=== PATIENT | male | born 1940 | race Caucasian/White ===

== ENCOUNTER 2018-05-01 12:58 | Inpatient (IN) ==
[2018-05-01] MEDS ORDERED: ASPIRIN PO ONE (13:42)
[2018-05-01] MEDS ORDERED: ASPIRIN PR ONE (13:42)
--- NOTE | 2018-05-01 14:03 | EKG Report ---
Test Performed on : 05/01/2018 1:08:04 PM Test Reason : CP Blood Pressure : / mmHG Vent. Rate : 069 BPM Atrial Rate : 069 BPM P-R Int : 220 ms QRS Dur : 154 ms QT Int : 450 ms P-R-T Axes : 264 018 018 degrees QTc Int : 482 ms Unusual P axis, possible ectopic atrial rhythm. Right bundle branch block Abnormal ECG When compared with ECG of 16-APR-2018 07:57, (Unconfirmed) Ectopic atrial rhythm. has replaced Sinus rhythm. Unconfirmed Result
--- NOTE | 2018-05-01 14:16 | Diag Imaging Result Doc PS360 ---
EXAM: CHEST-2 VIEWS 05/01/2018 HISTORY: CP TECHNIQUE: PA and lateral chest COMMENT: There are sternotomy wires. The inspiration is slightly less optimal than on 04/16/2018. There is apparent atelectasis in the left lower lobe. IMPRESSION: Left lower lobe atelectasis versus pneumonia. Electronically signed by Binh Larson 05/01/2018 2:14 PM
[2018-05-01 14:39] LABS: BASO# 0.04 X1000 (0.0-0.2); BASO% 0.6 % (0.0-0.8); EOS# 0.33 X1000 (0.0-0.7); EOS% 4.8 % (0.0-10.0); HEMATOCRIT 38.8 % (42.0-52.0); HEMOGLOBIN 12.1 g/dL (14.0-18.0); LYMPH# 1.61 X1000 (1.2-3.4); LYMPH% 23.5 % (20.5-51.1); MCH 26.9 PG (27-31); MCHC 31.2 g/dL (33-37); MCV 86.4 FL (81-99); MONO% 11.7 % (1.7-9.3); MPV 12.9 FL (7.4-10.4); NEUT# 4.07 X1000 (1.4-6.5); NEUT% 59.4 % (42.2-75.2); PLT 197 X1000 (130-400); RBC 4.49 XMIL (4.7-6.1); RDW 13.4 % (11.5-14.5); WBC 6.85 X1000 (4.8-10.8)
[2018-05-01 14:48] LABS: INR 1.07; PROTIME 14.8 Seconds (11.0-16.0)
[2018-05-01 14:49] LABS: PTT 36.1 Seconds (22.3-41.8)
[2018-05-01 15:29] LABS: ALB/GLOB RATIO 1.2; ALBUMIN 3.9 g/dL (3.5-5.0); CALCIUM 9.2 mg/dL (8.8-10.2); CREATININE 1.4 mg/dL (0.7-1.2); POTASSIUM 4.2 mmol/L (3.5-5.1); TOTAL BILIRUBIN 0.32 mg/dL (0.20-1.00); TOTAL PROTEIN 7.1 g/dL (6.3-8.3)
[2018-05-01 15:50] LABS: CK INDEX 1.7 (0.0-2.5); CK-MB 9.66 ng/mL (0.0-5.0)
[2018-05-01] MEDS ORDERED: NS 1,000 ML IV ONE (16:19)
[2018-05-01] MEDS ORDERED: G.I. COCKTAIL PO ONE (17:35)
[2018-05-01 17:54] LABS: CK INDEX 1.6 (0.0-2.5); CK-MB 9.06 ng/mL (0.0-5.0)
[2018-05-01] MEDS ORDERED: MORPHINE IV ONE (17:56)
[2018-05-01] MEDS ORDERED: NITROGLYCERIN SL PRN (17:57)
[2018-05-01] MEDS ORDERED: TYLENOL PO PRN (18:42)
[2018-05-01 20:11] LABS: CK INDEX 1.6 (0.0-2.5); CK-MB 8.47 ng/mL (0.0-5.0)
[2018-05-01] MEDS: HUMULIN R SUBQ SCH (21:00)
[2018-05-02] MEDS: MORPHINE IV PRN ×2 (00:22→19:13)
[2018-05-02] MEDS: ZOFRAN IV PRN (00:24)
[2018-05-02 03:24] LABS: BASO# 0.04 X1000 (0.0-0.2); BASO% 0.6 % (0.0-0.8); EOS# 0.33 X1000 (0.0-0.7); HEMATOCRIT 36.5 % (42.0-52.0); HEMOGLOBIN 11.4 g/dL (14.0-18.0); IMM GRAN# 0.04 X1000 (0.0-0.04); IMM GRAN% 0.6 % (0.0-0.5); LYMPH# 1.92 X1000 (1.2-3.4); LYMPH% 29.2 % (20.5-51.1); MCH 27.1 PG (27-31); MCHC 31.2 g/dL (33-37); MCV 86.9 FL (81-99); MONO# 0.85 X1000 (0.11-0.59); MONO% 12.9 % (1.7-9.3); MPV 12.3 FL (7.4-10.4); NEUT% 51.7 % (42.2-75.2); PLT 195 X1000 (130-400); RDW 13.3 % (11.5-14.5); WBC 6.58 X1000 (4.8-10.8)
[2018-05-02 03:39] LABS: HEMOGLOBIN A1C 8.2 % (4.8-6.0)
[2018-05-02 03:44] LABS: INR 1.12; PROTIME 15.3 Seconds (11.0-16.0)
[2018-05-02 03:45] LABS: PTT 36.9 Seconds (22.3-41.8)
[2018-05-02 03:49] LABS: ALB/GLOB RATIO 1.1; ALBUMIN 3.4 g/dL (3.5-5.0); CALCIUM 8.7 mg/dL (8.8-10.2); CREATININE 1.2 mg/dL (0.7-1.2); TOTAL BILIRUBIN 0.31 mg/dL (0.20-1.00); TOTAL PROTEIN 6.4 g/dL (6.3-8.3)
[2018-05-02 04:18] LABS: CK INDEX 1.7 (0.0-2.5); CK-MB 7.74 ng/mL (0.0-5.0)
--- NOTE | 2018-05-02 07:25 | HISTORY AND PHYSICAL ---
PRIMARY CARE PROVIDER: Dr. Ricketts. UNIT TRUST MANAGER: Dr. Chun. ORTHOPEDIST: Dr. Murray. CHIEF COMPLAINT: Center chest pressure. HISTORY OF PRESENT ILLNESS: Mr. Arauz is a 77-year-old gentleman who carries a past medical history of coronary artery disease, status post CABG in 1985, and stenting 09/02/2012, and left main had a patent stent, as well as a patent circumflex, MILLS to the LAD artery was patent, on 05/20/2011 he had PTCA with drug-eluting stent to the circumflex artery, hypertension, type 2 diabetes uncontrolled, probable obesity hypoventilation syndrome versus obstructive sleep apnea, COPD with home O2, hyperlipidemia, recently treated for a left foot ulcer by Dr. Murray. He still follows with him. He has wound care with [facility]. He reported sometime today, he started feeling center chest pressure. He did not know what made it worse. He did not know what made it better. However, he is currently pressure-free, and sleeping soundly on the stretcher. He denies fever, chills, cough, palpitations, nausea, vomiting, diarrhea, shortness of breath. Two sets of troponins have been negative. We will place him on the medical floor, make him NPO after midnight, place a monitor for a stress test. Repeat an echocardiogram. Continue to trend his cardiac enzymes. Continue his home supplemental O2. PAST MEDICAL HISTORY: 1. Coronary artery disease, status post CABG and stenting to the circumflex. 2. Hypertension. 3. Obstructive sleep apnea versus hypoventilation syndrome. 4. Diabetes mellitus type 2, uncontrolled. 5. Hyperlipidemia. 6. Left knee bursitis, status post aspiration in February. 7. Diabetic foot ulcer. He has been getting wound care, I believe with [facility]. He had finished antibiotics a couple of months ago, with Dr. Banks. We will consult wound care. 8. COPD, on home oxygen, without exacerbation. PAST SURGICAL HISTORY: 1. CABG. 2. TURP. 3. Drug-eluting stent to the circumflex. 4. Diabetic foot ulcer to the plantar surface of the foot, treated by Dr. Murray. 5. Left knee aspiration, by Dr. Mello. SOCIAL HISTORY: He is a former smoker. No history of illicit drug use, alcohol, or tobacco presently. FAMILY HISTORY: No history of coronary artery disease. ALLERGIES: No known drug allergies. HOME MEDICATIONS: Have not been reconciled. REVIEW OF SYSTEMS: A 14-point review of systems complete and negative, except for those mentioned in the HPI. PHYSICAL EXAMINATION: VITAL SIGNS: Temperature is 98 degrees, heart rate 66, respirations 22, blood pressure 159/78, oxygen is 98% on 2.5 L nasal cannula. GENERAL: Mr. Arauz is a 77-year-old male, who is sleeping soundly on the stretcher. Wakens easily with voice and gentle tactile stimulus. He is in no acute distress. HEENT: Atraumatic, normocephalic. PERRL. NECK: Supple. Trachea midline. CV: S1, S2 appreciated. No JVD. No murmurs, gallops, or rubs. No lower extremity edema. However, he does have on medical grade ARCENIO hose. PULMONARY: Bilateral breath sounds. Clear to auscultation. No rales, rhonchi, or wheezes. GI: Soft, nontender, and nondistended. Positive bowel sounds in 4 quadrants. EXTREMITIES: The patient does have medical grade ARCENIO hose to both bilateral lower extremities. Did not assess any lower extremity edema. He does have a plantar wound to his left lower extremity that is wrapped. NEUROLOGIC: No focal deficits noted. DIAGNOSTIC DATA: Chest x-ray shows left lower lobe atelectasis versus pneumonia. EKG shows unusual P axis, possible ectopic atrial rhythm, right bundle branch block, at 69 beats per minute. LABORATORY DATA: White count 6, hemoglobin and hematocrit 12 and 38, platelet count 197,000. Sodium 144, potassium 4.2, BUN 20, creatinine 1.4. Blood glucose is 82. CK 569, CK-I 1.6, CK-MB 9.06, troponin 2 sets 0.26 and 0.027. ProBNP 178. ASSESSMENT AND PLAN: 1. Chest pain in a patient with known coronary disease, status post coronary artery bypass grafting and stenting to his circumflex. Will admit him to the medical telemetry floor, place him on a healthy heart diet, make him NPO after midnight. Recheck an echocardiogram. Continue to trend his cardiac enzymes. Continue morphine for any chest pain. Continue aspirin. Consult Dr. Brothers with Cardiology. 2. Hypertension. Will continue home medications when reconciled. 3. Sleep apnea. 4. Uncontrolled diabetes mellitus type 2. Will continue on sliding scale and pattern blood sugars. 5. Hyperlipidemia. Continue statin. 6. Left plantar diabetic foot ulcer. We will continue with wound care. 7. Probable obesity hypoventilation syndrome versus obstructive sleep apnea. The patient should be wearing a CPAP at night. 8. Chronic obstructive pulmonary disease, on home oxygen, without exacerbation. Continue his home regimen. 9. Further recommendations to follow physician evaluation, laboratory and diagnostic data. Dictated by HERNANDEZ Juarez for Alek Dennis MD cc: Alek Dennis MD
[2018-05-02] MEDS: ASPIRIN EC PO SCH ×2 (09:04→19:12)
--- NOTE | 2018-05-02 09:30 | Diag Imaging Result Doc PS360 ---
EXAM: CHEST-2 VIEWS 05/02/2018 HISTORY: rule out pna TECHNIQUE: AP and lateral chest COMMENT: The inspiration is suboptimal. There has been no appreciable change otherwise since the previous study of 05/01/2018. IMPRESSION: Stable chest. Electronically signed by Binh Larson 05/02/2018 9:28 AM
[2018-05-02] MEDS: HUMULIN R SUBQ SCH ×4 (10:38→21:49)
--- NOTE | 2018-05-02 11:08 | CARDIOLOGY CONSULTATION ---
DATE: 05/02/2018 HISTORY OF PRESENT ILLNESS: Ms. Vasquez is a 77-year-old gentleman known to our service, history of coronary artery disease, COPD on home O2, diabetes presented to the emergency room with shortness of breath, which worsened recently. He had some chest heaviness prior to admission as well. He does not complain of any palpitations. He has had some dizzy spells. There is lightheadedness as well. There is no orthopnea paroxysmal nocturnal dyspnea. Exercise capacity significantly limited. A 14-point review of systems was done. REVIEW OF SYSTEM: GI: There is no history of nausea, vomiting, diarrhea. There is no history of hematemesis or melena. Central nervous system: No focal weakness to suggest a CVA or TIA. PAST MEDICAL HISTORY: 1. Coronary artery disease, status post coronary artery bypass grafting with MILLS to LAD in 1985. Last cardiac catheterization 09/02/2012: EF 55% to 60%, patent stent LAD, proximal 80%, circumflex stent patent. RCA irregularities. MILLS to LAD was patent, at that time. Her last echocardiogram 07/21/2017, ejection fraction of 60% to 65%. 2. COPD, hypertension, hyperlipidemia, diabetes, hiatal hernia, hypothyroidism, altered mental status, vertigo, obstructive sleep apnea. PAST SURGICAL HISTORY: TURP and left knee bursitis aspiration. HOME MEDICATIONS: Aspirin, Plavix, isosorbide mononitrate, metoprolol 50, lisinopril 40, levothyroxine 25, tamsulosin, Neurontin, furosemide 80 mg once a day, Fenofibrate 145, Celexa 40, budesonide, albuterol, Spiriva, Advair Diskus, insulin as directed. ALLERGIES: He is not known to be allergic to any medication. EXAMINATION: Vital signs: On examination, blood pressure was 160/62. Cardiovascular: Normal jugular venous pressure. There no thyromegaly. No carotid bruit. First and second heart sounds were heard. Respiratory: Distant breath sounds. Few scattered wheeze. Abdomen: Soft, nontender. There was no guarding or rigidity. Bowel sounds were heard. Central nervous system: Alert and oriented, was moving all 4 extremities. Extremities: Examination of extremities revealed he has got a diabetic foot ulcer on the left side. LABORATORY EXAMINATION: Sodium 143, potassium 4.0, BUN 18, creatinine 1.2. The patient's INR was 1.1. Troponin 0.027, 0.026, 0.026. ASSESSMENT AND PLAN: 1. Mr. Noé Vasquez is a 77-year-old gentleman with history of coronary artery disease, status post coronary artery bypass grafting, hypertension, diabetes, hyperlipidemia, and chronic obstructive pulmonary disease, presents with shortness of breath, some dizziness, and chest discomfort. From a cardiac standpoint, we will set him up to undergo a Cardiolite stress test to assess for and rule out ischemia. He has been stable from a cardiac standpoint. 2. He has significant chronic obstructive pulmonary disease. His shortness of breath has worsened. I will also get a pulmonary consultation. 3. Hypertension. Continue with his current medications. 4. Chronic obstructive pulmonary disease. Continue with his home medications. 5. I have not made any other changes to his medications. Thank for the consult. We will follow hospital course. cc: Toby Chun MD
[2018-05-02 12:15] LABS: CK INDEX 1.9 (0.0-2.5); CK-MB 9.03 ng/mL (0.0-5.0)
[2018-05-02] MEDS ORDERED: LEXISCAN ONE (12:30)
--- NOTE | 2018-05-02 12:47 | EKG Report ---
Test Performed on : 05/02/2018 12:43:34 PM Test Reason : dyspnea Blood Pressure : / mmHG Vent. Rate : 057 BPM Atrial Rate : 057 BPM P-R Int : 236 ms QRS Dur : 144 ms QT Int : 464 ms P-R-T Axes : 000 013 026 degrees QTc Int : 451 ms Sinus bradycardia. with sinus arrhythmia. with 1st degree AV block. Right bundle branch block Abnormal ECG When compared with ECG of 02-MAY-2018 12:43, (Unconfirmed) Sinus rhythm. has replaced Ectopic atrial rhythm. Confirmed by Julian AGUILAR, Malvin Burks ([id number]) on 05/04/2018 10:36:05 AM
--- NOTE | 2018-05-02 15:03 | Diag Imaging Result Document ---
PROCEDURE NAME: MYOCARDIAL PERF SCAN, STR/REST - 05/02/2018 LEXISCAN SESTAMIBI INTERPRETATION: SUMMARY: The patient was administered 15.8 mCi of technetium-99m sestamibi after which resting cardiac images were obtained. The patient was subsequently administered Lexiscan 0.4 mg intravenously after which the heart rate went from 58 beats per minute to 91 beats per minute. The blood pressure went from 144/69 to 163/72. With Lexiscan, the patient denied chest discomfort. Following the administration of Lexiscan, the patient was administered 45.9 mCi of technetium-99m sestamibi, after which gated stress cardiac images were obtained. Baseline ECG demonstrated sinus rhythm and left bundle branch block. First-degree AV block also demonstrated. With Lexiscan, there were no diagnostic ST-segment changes. SPECT images were reconstructed in the short, horizontal and vertical long axis. Review of these images demonstrated a small area of moderately diminished activity in the inferior apex of the left ventricle on stress images which improves on resting images. Gated images demonstrate a calculated left ventricular ejection fraction of 64% with symmetrical wall motion/thickening. CONCLUSIONS: 1. Adequate response to Lexiscan. 2. Clinically negative for chest pain. 3. Electrocardiographically there were no diagnostic ST-segment changes on ECG following the administration of Lexiscan. 4. Lexiscan sestamibi images demonstrate small area of moderate reversibility in the inferoapical region of the left ventricle. Normal left ventricular systolic function demonstrated. Clinical correlation recommended. cc: MD Gina Kaur CRNP
[2018-05-02] MEDS: DUONEB (A & A) INH SCH ×3 (16:00→23:35)
[2018-05-02] MEDS: NORVASC PO SCH (19:11)
[2018-05-02] MEDS: SOLU-MEDROL IV SCH (19:11)
[2018-05-02] MEDS: PLAVIX PO SCH (19:11)
[2018-05-02] MEDS: ASPIRIN PO SCH (19:12)
[2018-05-02] MEDS: IMDUR PO SCH (19:12)
[2018-05-02] MEDS: TRICOR PO SCH ×2 (19:12→20:50)
[2018-05-02] MEDS: SANTYL OINT TOP SCH (19:12)
[2018-05-02] MEDS: LOVENOX SUBQ SCH (19:14)
[2018-05-02] MEDS: TOPROL XL PO SCH (21:49)
--- NOTE | 2018-05-02 22:21 | PROGRESS NOTE ---
DATE: 05/02/2018 SUBJECTIVE: Patient resting in bed. PHYSICAL EXAMINATION: Vital signs: Temperature 98.3 degrees, pulse 78, blood pressure 163/62, oxygen saturation 98%, respiratory rate is 19. HEENT: He is atraumatic, normocephalic. Cardiovascular: S1, S2. Respiratory system: Evidence of good air entry bilaterally. Abdomen: Soft, nontender. No masses felt. Extremities: No evidence of edema. Central nervous system: No obvious focal deficits noted. LABORATORIES: WBC 6.58, hematocrit is 36.5, with a platelet count of 195,000. Sodium 143, potassium 4.0, chloride is 106, bicarbonate is 30, BUN is 18, creatinine is 1.2. IMAGING STUDIES: X-ray of the chest: No acute findings noted. ASSESSMENT AND PLAN: 1. Chest pain/history of coronary artery disease. Continue aspirin, Plavix, beta enio as well as sublingual nitroglycerin. We will check a fasting lipid panel. Cardiology is following. 2. Chronic obstructive pulmonary disease. Maintain patient on nebulized bronchodilators as well as steroids. 3. Hypertension. Continue current antihypertensive regimen. 4. Diabetes mellitus. Continue sliding scale insulin as well as blood sugar monitoring. 5. Obstructive sleep apnea. The patient can use his CPAP machine at night. 6. Deep vein thrombosis prophylaxis. Lovenox. 7. Gastrointestinal prophylaxis. Proton pump inhibitor. cc: Alek Dennis MD
--- NOTE | 2018-05-03 00:08 | ECHO REPORT ---
ORDER DATE: 05/02/2018 MEASUREMENTS: Left ventricular end diastolic diameter 5.4, end systolic diameter 4.3, septal thickness 1.2, posterior wall thickness 1.2, aortic root 3.7, left atrium 5.3. SUMMARY: 1. Technically difficult study due to limited acoustic window quality. 2. Intravenous echo contrast agent Definity utilized to enhance endocardial definition. 3. Aortic valve is trileaflet and opens normally on 2-dimensional images. Peak gradient across the aortic valve is less than 10 mmHg. Mitral annular calcification is demonstrated. There is mild mitral regurgitation. Tricuspid and pulmonic valves are without evidence of structural abnormality with mild tricuspid regurgitation and mild pulmonic insufficiency. The estimated systolic PA pressure by Doppler is 35 mmHg. The aortic root is normal in size. 4. Normal left ventricular dimensions suggested on 2-dimensional images. Estimated left ventricular ejection fraction approximately 55%. No regional wall motion abnormalities evident. The left atrium is moderately enlarged. The right atrium and right ventricle are grossly normal in size with grossly preserved right ventricular systolic function. 5. No pericardial effusion. 6. Appearance of inferior vena cava suggests mildly elevated central venous pressure. CONCLUSIONS: 1. Technically difficult study. 2. Mitral annular calcification with mild mitral regurgitation. 3. Mild tricuspid regurgitation with estimated systolic pulmonary artery pressure 35 mmHg. 4. Estimated left ventricular ejection fraction approximately 55%. 5. Moderate left atrial enlargement. 6. Mild elevation in central venous pressure is suggested. cc: MD Gina Kaur CRNP
[2018-05-03] MEDS: SOLU-MEDROL IV SCH ×2 (01:34→08:23)
[2018-05-03] MEDS: DUONEB (A & A) INH SCH ×3 (03:00→11:09)
[2018-05-03 05:15] LABS: ALLEN TEST YES; BLOOD TYPE ARTERIAL; HCO3-(ACT) 25.7 mmoll (20.0-26.0); METHB 0.3 % (0.0-1.5); O2(CT) 16.3 mL/dL (15.0-23.0); PO2(98.6) 93 mmHg (60-100); SAMPLE BLOOD; SAO2 96.8 % (95.0-100.0); pH(98.6) 7.34 (7.35-7.45)
[2018-05-03 05:17] LABS: MODALITY CANNULA; PCO2(98.6) 51 mmHg (35-45)
--- NOTE | 2018-05-03 06:00 | CONSULTATION ---
DATE OF CONSULTATION: 05/02/2018 REQUESTING PHYSICIAN: MEGHNA Otto REASON FOR CONSULTATION: Dyspnea and COPD. HISTORY OF PRESENT ILLNESS: This is a 77-year-old male with a medical history of atypical chest pain, coronary artery disease, diastolic congestive heart failure , hypertension, COPD, asthma, gastroesophageal reflux disease, morbid obesity with obesity hypoventilation syndrome versus obstructive sleep apnea, diabetes, hyperlipidemia, diabetic foot ulcer, chronic back and lower extremity pain, and osteoarthritis. The patient presented to the ER yesterday morning with a central chest pressure. He has been admitted to the medical floor for further evaluation and management. At the time of my examination, he still reports chest pressure, SOB and left upper and lower abdominal pain. He states he has been having abdominal pain for a long time. He reports his chest pain or chest pressure is worsened by situational stress from the family as his argues a lot with him. He also reports he has wheezing and PND, but not cough, nausea, vomiting, diarrhea, constipation, bloody stools, pedal edema or palpitations. PAST MEDICAL HISTORY AND SURGICAL HISTORY: 1. Atypical chest pain. 2. Coronary artery disease status post coronary artery bypass grafting with MILLS to the LAD in 1985. On 05/30/2011, he had a PTCA with drug-eluting stent to the circumflex arterial. 3. Diastolic congestive heart failure. Last echocardiogram on 07/21/2017 revealed ejection fraction of 60 to 65 percent. 4. Hypertension. 5. COPD on home oxygen for about 2 years. The patient reports he originally had home oxygen only at bedtime, but right now he is using it all of the time. 6. Asthma. 7. Gastroesophageal reflux disease. 8. Morbid obesity with obesity hypoventilation syndrome versus obstructive sleep apnea. Currently, BMI is 37.8. Follow up with the sleep clinic. He used home CPAP , but has not been titrated for 3 to 4 years. 9. Diabetes mellitus type 2, uncontrolled and insulin dependent. 10. Hyperlipidemia. 11. Left knee bursitis status post aspiration in February of 2018 followed by orthopedic doctor Dr. Murray. 12. Diabetic foot ulcer. Wound care with Santyl followed by Dr. Banks. 13. Dementia. 14. Chronic kidney disease. 15. Chronic back and lower extremity pain status post back surgery. 16. BPH status post transurethral resection of the prostate several years ago in [place]. 17. Osteoarthritis of his knee status post right knee total arthroplasty. 18. Cholecystectomy. SOCIAL HISTORY: Patient used to smoke 3 packs per day, but quit smoking for more than 20 years. He denies alcohol or illicit drug use. FAMILY HISTORY: Positive for congestive heart failure and cerebrovascular disease. ALLERGIES: NKDA REVIEW OF SYSTEMS: A 10 point review of systems was conducted and the pertinent is listed in the HPI. Otherwise noncontributory. PHYSICAL EXAMINATION: Vital Signs: Temperature 98.3, blood pressure 163/62, pulse 78, respiratory rate 19, and oxygen saturation 98% on nasal cannula at 5 mL. General: Morbidly obese, alert and responsive. The patient is sitting by the bedside in no acute distress at this time. HEENT: Atraumatic. Trachea midline. Mucosa pink and moist. Respiratory: Diminished breathing sounds bilaterally with left side worse than the right side. Otherwise clear to auscultation. Cardiovascular: Regular rate and rhythm without murmur noted. Gastrointestinal: The patient complains of tenderness on the left upper quadrant and left lower quadrant. He has normoactive bowel sounds in all 4 quadrants. Abdomen is distended but soft. Extremities: He has diabetic foot ulcer on LLE, which is dressed with dry and clean bandage. Left lower extremity has pedal edema 1+. No clubbing. No cyanosis. Neurologic: Alert and oriented x3. He is able to follow commands. Speech is fluent. DIAGNOSTIC DATA: Chest x-ray revealed stable chest base with sub optimal inspiration. Myocardial perfusion scan stress test showed adequate response to Lexiscan. Clinically negative for chest pain. Electrocardiographically, there were no diagnostic ST elevation changes on EEG or ECG following the administration of Lexiscan. The Lexiscan sestamibi image demonstrated a small area of moderate reversibility in the inferoapical region of the left ventricle. Normal left ventricle systolic function demonstrated. LABORATORY DATA: White blood cells 6.58, hemoglobin 11.4, hematocrit 36.5, and platelet count 195,000. Sodium 143, potassium 4.0, chloride 106, carbon dioxide 30, BUN 18, creatinine 1.2, glucose 107. CK 447, CK-MB 7.74. ProBNP 256. ASSESSMENT AND PLAN: This is a 77-year-old male with medical history of atypical chest pain, coronary artery disease, diastolic congestive heart failure, hypertension , COPD, asthma, gastroesophageal reflux disease, morbid obesity with obesity hypoventilation syndrome versus obstructive sleep apnea, uncontrolled diabetes, hyperlipidemia, dementia, chronic kidney disease, chronic back and lower extremity pain, benign prostatic hyperplasia, and osteoarthritis. He has been admitted to the medical floor with atypical chest pain. 1. Atypical chest pain. The patient is now on telemetry with healthy heart diet. Cardiac enzymes negative, stress test negative for acute change. Dr. Chun on board. 2. Dyspnea. Continue supplemental oxygen as needed. ABG and chest x-ray if indicated. 3. COPD. No exacerbation. Will start bronchodilators if needed. 4. Obesity hypoventilation syndrome versus obstructive sleep apnea. BiPAP at bedtime and as needed. 5. Continue GI and DVT prophylaxis. Thank you for the courtesy of this consult. Dictated by HERNANDEZ River for Sara Tobin MD cc: HERNANDEZ River MD [facility]
[2018-05-03] MEDS: HUMULIN R SUBQ SCH ×2 (06:02→12:37)
[2018-05-03] MEDS ORDERED: PRILOSEC PO SCH (07:00)
--- NOTE | 2018-05-03 07:31 | Diag Imaging Result Doc PS360 ---
CHEST-1 VIEW - 05/03/2018 INDICATION: copd COMPARISON: 05/02/2018 FINDINGS: Stable cardiomegaly and pulmonary vascular congestion. No infiltrates or edema. IMPRESSION: No change from prior. Electronically signed by Librado Nuñez 05/03/2018 7:29 AM
[2018-05-03 07:46] LABS: BASO# 0.01 X1000 (0.0-0.2); BASO% 0.1 % (0.0-0.8); HEMOGLOBIN 12.2 g/dL (14.0-18.0); LYMPH# 0.45 X1000 (1.2-3.4); LYMPH% 4.9 % (20.5-51.1); MCH 27.2 PG (27-31); MCHC 31.3 g/dL (33-37); MCV 86.9 FL (81-99); MONO% 1.1 % (1.7-9.3); MPV 12.4 FL (7.4-10.4); NEUT# 8.57 X1000 (1.4-6.5); NEUT% 93.9 % (42.2-75.2); PLT 203 X1000 (130-400); RBC 4.49 XMIL (4.7-6.1); RDW 13.2 % (11.5-14.5); WBC 9.13 X1000 (4.8-10.8)
[2018-05-03 08:23] LABS: AGAP 10; ALBUMIN 3.6 g/dL (3.5-5.0); ALKALINE PHOSPHATASE 62 U/L (32-122); BUN 21 mg/dL (8-22); CALCIUM 8.9 mg/dL (8.8-10.2); CHLORIDE 99 mmol/L (98-107); CHOLESTEROL 110 mg/dL (0-200); COSMO 285; CREATININE 1.4 mg/dL (0.7-1.2); ESTIMATED GFR 49; GLUCOSE 312 mg/dL (70-104); GOT 15 U/L (10-34); GPT 8 U/L (10-44); HDL 29 mg/dL (35-55); LDL 64 mg/dL; SODIUM 135 mmol/L (136-145); TCO2 26 mmol/L (25-35); TOTAL BILIRUBIN 0.41 mg/dL (0.20-1.00); TOTAL PROTEIN 7.3 g/dL (6.3-8.3); TRIGLYCERIDES 84 mg/dL (39-160); VLDL 17 mg/dL
[2018-05-03] MEDS: PLAVIX PO SCH (08:23)
[2018-05-03] MEDS: ASPIRIN EC PO SCH (08:23)
[2018-05-03] MEDS: ASPIRIN PO SCH (08:23)
[2018-05-03] MEDS: IMDUR PO SCH (08:23)
[2018-05-03] MEDS: LOVENOX SUBQ SCH (08:23)
[2018-05-03] MEDS: NORVASC PO SCH (08:23)
[2018-05-03] MEDS: TOPROL XL PO SCH (08:23)
[2018-05-03 08:24] LABS: POTASSIUM 5.5 mmol/L (3.5-5.1)
[2018-05-03 08:32] VITALS: BP 143/65
[2018-05-03 08:32] LABS: BANDS 1 % (0-1); LYMPHS 4 % (21-51); MONO 2 % (1-9); SEGS 93 % (42-75)
[2018-05-03] MEDS: ZOFRAN IV PRN (10:13)
[2018-05-03] MEDS: SANTYL OINT TOP SCH (14:17)
--- NOTE | 2018-05-04 09:18 | DISCHARGE SUMMARY ---
ADMISSION DATE: 05/01/2018 DISCHARGE DATE: 05/03/2018 PRINCIPAL DIAGNOSIS: Atypical chest pain. SECONDARY DIAGNOSES: 1. Coronary artery disease status post coronary artery bypass graft, as well as stenting to the circumflex. 2. Hypertension. 3. Obstructive sleep apnea. 4. Type 2 diabetes mellitus. 5. Hyperlipidemia. 6. Chronic obstructive pulmonary disease on home oxygen. 7. Diabetic foot ulcer. 8. Left knee bursitis. DISCHARGE MEDICATIONS: Discharge medications Include the followin. Lasix 80 mg p.o. daily. 2. Fenofibrate 145 g p.o. at bedtime. 3. Stool softeners Slim-Lax tablets, 2 tablets at bedtime. 4. Pravastatin 40 mg p.o. at bedtime. 5. Plavix 75 mg p.o. daily. 6. Metoprolol 50 mg p.o. twice a day. 7. Imdur 60 mg p.o. daily. 8. Flomax 0.4 mg at bedtime. 9. Celexa 40 mg p.o. daily. 10. Gabapentin 300 mg p.o. daily. 11. Levothyroxine 25 mcg p.o. once a day. 12. Amlodipine 10 mg p.o. daily. 13. Humulin 70/30 60 mg subcutaneous in the evenings. 14. Humulin 70/30 18 units subcutaneous in the mornings. 15. Oxybutynin 10 mg p.o. twice a day. 16. Pantoprazole 1 daily. 17. Santyl ointment 1 application topical daily. CONSULTATIONS DONE DURING THIS HOSPITAL STAY: 1. Dr. Toby Chun, Cardiology. 2. Dr. Sara Tobin, Pulmonology. PROCEDURES DONE DURING THIS HOSPITAL STAY: Myocardial perfusion scan; this was done on 05/02/2017. HOSPITAL COURSE: Mr. Arauz is a 77-year-old male, who has an extensive cardiac history. He has had coronary artery disease status post CABG in 1995. Also, stenting done in 04/04/2018 . The left main had a patent stent, as well as a patent circumflex. MILLS to LAD was patent on 05/20/2011. He had PTCA with a drug-eluting stent to the circumflex heart. He does have left foot ulcer and was admitted to the hospital because of chest pain. Was seen by the cardiology team had cardiac stress test done. Showed adequate system; maybe images demonstrate small area of moderate reversibility in the inferior apical region of the left ventricle. The patient seemed to have done fairly well. He is stable. He wants to be discharged home. DISCHARGE PHYSICAL EXAMINATION: Vital Signs: During my evaluation today, his vital signs are as follows: Temperature 98.7 degrees, pulse 79, respiratory 17 blood pressure is 143/60, oxygen saturation is 100%. HEENT: Atraumatic, normocephalic. Cardiovascular system: S1, S2. Respiratory system: Has evidence of good air entry bilaterally. Abdomen: Soft. Nontender. No masses felt. Central nervous system: No obvious focal deficits noted. PLAN: Patient can be discharged home today. He will need to follow up with primary care physician, Pulmonology as well as Cardiology in the outpatient. cc: Alek Dennis MD
== END 2018-05-03 14:32 | disposition home health service (06) | DRG 313 ==
LOC: SUPCPDRO → ED 12:58 → EDIPHOLD 18:56 → 3N 22:58 → EDIPHOLD 22:59 → 3N 23:49
PROVIDERS: ATTEND Internal Medicine
CPT/HCPCS: 71010; 71020; 71045; 71046; 78452; 80053; 80061; 82550; 82553; 82805; 82948; 83036; 83721; 83735; 83880; 84484; 85025; 85610; 85730; 93005; 93010; 93017; 93306; 94640; 94760; 94761; 96360; 99285; A9270; A9500; C8929; J1650; J2270; J2405; J2785; J2920; J7030; Q9957; XXXXX

== ENCOUNTER 2019-01-03 11:56 | Inpatient (IN) ==
[2019-01-03] MEDS ORDERED: MAXIPIME 1 GM in NS 50 ML IV ONE (12:30)
[2019-01-03] MEDS ORDERED: VANCOMYCIN 1 GM/NS 1 GM/250 ML IVPB IV ONE (12:30)
[2019-01-03 12:43] LABS: BASO# 0.02 X1000 (0.0-0.2); BASO% 0.3 % (0.0-0.8); EOS# 0.23 X1000 (0.0-0.7); EOS% 3.1 % (0.0-10.0); HEMATOCRIT 37.6 % (42.0-52.0); HEMOGLOBIN 11.7 g/dL (14.0-18.0); LYMPH# 0.83 X1000 (1.2-3.4); LYMPH% 11.3 % (20.5-51.1); MCH 27.7 PG (27-31); MCHC 31.1 g/dL (33-37); MCV 88.9 FL (81-99); MONO# 0.68 X1000 (0.11-0.59); MONO% 9.3 % (1.7-9.3); MPV 12.6 FL (7.4-10.4); NEUT# 5.58 X1000 (1.4-6.5); PLT 207 X1000 (130-400); RBC 4.23 XMIL (4.7-6.1); RDW 13.8 % (11.5-14.5); WBC 7.34 X1000 (4.8-10.8)
--- NOTE | 2019-01-03 12:57 | Diag Imaging Result Doc PS360 ---
EXAM: FOOT COMPLETE LEFT 01/03/2019 HISTORY: DM foot ulcer TECHNIQUE: Left foot three views COMMENT: There is erosion of the lateral cortex of the head of the proximal phalanx and the lateral portion of the middle phalanx of the fifth toe. This was not the case on 02/08/2018. There is no evidence of fracture or dislocation. IMPRESSION: Probable osteomyelitis in the fifth proximal and middle phalanges. Electronically signed by Binh Larson 01/03/2019 12:55 PM
[2019-01-03 13:00] LABS: ALBUMIN 3.8 g/dL (3.5-5.0); CALCIUM 8.7 mg/dL (8.8-10.2); CREATININE 1.6 mg/dL (0.7-1.2); POTASSIUM 4.1 mmol/L (3.5-5.1); TOTAL BILIRUBIN 0.39 mg/dL (0.20-1.00); TOTAL PROTEIN 7.5 g/dL (6.3-8.3)
[2019-01-03] MEDS ORDERED: TYLENOL PO PRN (14:37)
[2019-01-03] MEDS ORDERED: ZOFRAN IV PRN (14:37)
[2019-01-03] MEDS ORDERED: VANCOMYCIN IV PER PHARMACY MISC SCH (14:45)
[2019-01-03] MEDS ORDERED: VANCOMYCIN 2,000 MG in NS 500 ML IV ONE (16:00)
[2019-01-03] MEDS ORDERED: D50W SYRINGE IV PRN (16:48)
--- NOTE | 2019-01-03 17:15 | HISTORY AND PHYSICAL ---
PRIMARY CARE PHYSICIAN: Nilesh Ricketts MD ORTHOPEDIC DOCTOR: Jayro Murray MD CHIEF COMPLAINT: Left foot cellulitis. HISTORY OF PRESENT ILLNESS: Mr. Arauz is a 78-year-old male who presents to the ER today and states he went to see Dr. Murray on Sunday of this week and was given an oral antibiotic for his left foot cellulitis to the left 5th metatarsal. The patient states that Dr. Murray, informed him that if his foot wound did not improve to notify him. The patient states that his foot wound has began to become more erythemic and has also started to drain more purulent drainage. The patient notified Dr. Murray today that this wound was not getting any better. Dr. Murray notified him at that time to come to the ER for IV antibiotics and hospital admission. The patient states that he has had a wound to the plantar surface of his foot for greater than 2 years. When assessing the wounds the patient is noted to have an open wound to the plantar surface of the left foot below the left great toe. This wound is open and draining sero- sanguinous drainage. He states that he has had this wound for a long time. He states that he puts a dry dressing over this wound. The patient also has another wound noted to the posterior surface of the 5th metatarsal on the left foot. This wound is noted to be very erythemic. It has some purulent drainage draining from it. On the anterior surface of the toe, it appears to be yellow. There is also a malodorous odor coming from the wound. When initially going into the room, the patient had some very constricting ARCENIO hose on. I removed the ARCENIO hose from the leg and the foot. The left foot is very edematous more so than the right foot. There is also noted a very superficial wound to the top of the right foot. The patient had a Band-Aid over this wound and to the right great toe there is a black scab noted. Patient states he has been seeing Dr. Murray. He has been treating his left foot. [facility] and [facility] apparently sent him to see Dr. Murray. The patient is not complaining of any other symptoms. However, he does state that this morning at home his blood sugar was 44. He was able to get his blood sugar to come up by eating. His blood sugar now on labs, is 203. Foot x-ray of the left foot shows probable osteomyelitis in the 5th proximal and middle phalanges. PAST MEDICAL HISTORY: Diabetes, coronary artery disease, hypertension, sleep apnea, hyperlipidemia, left knee bursitis, diabetic foot ulcers, COPD. PAST SURGICAL HISTORY: CABG in 1985, right knee replacement, TURP, drug alluding stent to the circumflex. SOCIAL HISTORY: Denies any smoking, alcohol or illicit drug use. FAMILY HISTORY: Significant for coronary artery disease. ALLERGIES: No known drug allergies. HOME MEDICATIONS: Home medication have not been reconciled. REVIEW OF SYSTEMS: A 12 point review of systems has been obtained and all are negative except for the stated above in the HPI. LABORATORY AND DIAGNOSTICS: White blood cell count 7.34, red blood cell count 4.23, hemoglobin 11.7, hematocrit 37.6, platelet count 207,000. Sodium 137, potassium 4.1, chloride 98, carbon dioxide 27, anion gap 12, BUN 38, creatinine is 1.6, estimated GFR is 42, glucose is 203, calcium is 8.7, total bilirubin is 0.39, AST is 19, ALT is 8. Foot x-ray shows probable osteomyelitis in the 5th proximal and middle phalanges. PHYSICAL EXAMINATION: VITAL SIGNS: Temperature 99.3, heart rate 63, respiratory rate 18, blood pressure is 104/78, O2 saturations 97% on room air. Weight is 280 pounds. Height is 6 feet. GENERAL: This is a 78-year-old, somewhat obese male who is sitting up on the side of the ER stretcher. He is well nourished, well developed. He is in no acute distress at present time. HEENT: Atraumatic, normocephalic. Pupils are equal, round, reactive to light. Mucous membranes are dry. NECK: Supple. No lymphadenopathy. Trachea is midline. No JVD. No thyromegaly. CARDIOVASCULAR: Regular rate and rhythm. No murmurs, gallops, or rubs appreciated. RESPIRATORY: Lung sounds are clear with equal chest excursion. Respirations are nonlabored. No accessory muscle usage. GASTROINTESTINAL: Abdomen large and around. It is soft and nontender. Bowel sounds are present x4. NEUROLOGIC: Cranial nerves 2-2 through 12 intact. The patient is awake, alert, oriented, able to follow all commands appropriately. MUSCULOSKELETAL: Full distal strength noted. No abnormalities of gait. No deformities. EXTREMITIES: No clubbing, no cyanosis. There is edema noted to the left lower extremity. DP and PT pulses are present and palpable. SKIN: Warm, it is very dry and flaky. There is multiple foot ulcers noted to the left lower extremities as described above in the HPI. There is no diaphoresis noted. ASSESSMENT AND PLAN: 1. Osteomyelitis. I have admitted this patient to the medical floor. I have consulted Infectious Disease. I have consulted Orthopedics to see this patient. He sees Dr. Murray on a regular basis. I have placed him on IV antibiotics for his foot infections. I have also placed him on diabetic diet. 2. Diabetes mellitus type 2. I have ordered him a sliding scale. I have also placed him on fingersticks before meals and at bedtime. Once his home med list is reconciled, I will restart him home on his home insulin doses. 3. Coronary artery disease. I will restart all his home medications once they are reconciled in the computer. 4. Hypertension. I will restart his home hypertension medications once they are reconciled in the computer. 5. Chronic obstructive pulmonary disease. I will order him some breathing treatments. He is not short of breath at this time. 6. Gastrointestinal prophylaxis. I have ordered him Prilosec. 7. Deep venous thrombosis prophylaxis. I placed him on Lovenox daily. I have admitted this patient to the medical floor. I have ordered labs for in the morning. I have consulted Dr. Banks for Infectious Disease. I have consulted Dr. Silverio for orthopedic. I placed him on vancomycin and cefepime for antibiotics. I have also started him on Lovenox and Prilosec for GI. All other further recommendations pending hospital course and lab data. Dictated by HERNANDEZ Underwood for Nancie Burks MD cc: MD Jayro Bowen MD Leroy F. Harris, MD Michael C. Donham, MD I performed a face to face encounter on the patient. I reviewed all labs and imaging on the patient. I agree with the H&P as dictated. [facility]
[2019-01-03] MEDS: HUMULIN R SUBQ SCH ×2 (17:54→21:00)
[2019-01-03] MEDS: ZYVOX 600 MG/D5W 600 MG/300 ML IVPB IV SCH (18:01)
[2019-01-03] MEDS: MAXIPIME 1 GM in NS 50 ML IV SCH (20:46)
[2019-01-03] MEDS: LOVENOX SUBQ SCH (20:46)
[2019-01-04] MEDS: ZYVOX 600 MG/D5W 600 MG/300 ML IVPB IV SCH ×2 (06:06→17:04)
[2019-01-04] MEDS ORDERED: PERICOLACE PO PRN (06:41)
[2019-01-04] MEDS: HUMULIN R SUBQ SCH ×4 (06:46→20:54)
[2019-01-04 07:18] LABS: BASO# 0.01 X1000 (0.0-0.2); BASO% 0.1 % (0.0-0.8); EOS# 0.25 X1000 (0.0-0.7); EOS% 3.5 % (0.0-10.0); HEMATOCRIT 35.8 % (42.0-52.0); LYMPH# 1.01 X1000 (1.2-3.4); LYMPH% 14.3 % (20.5-51.1); MCH 26.8 PG (27-31); MCHC 30.7 g/dL (33-37); MCV 87.1 FL (81-99); MONO# 0.92 X1000 (0.11-0.59); MPV 12.3 FL (7.4-10.4); NEUT# 4.88 X1000 (1.4-6.5); NEUT% 69.1 % (42.2-75.2); PLT 219 X1000 (130-400); RBC 4.11 XMIL (4.7-6.1); RDW 13.5 % (11.5-14.5); WBC 7.07 X1000 (4.8-10.8)
[2019-01-04] MEDS: PRILOSEC PO SCH (07:30)
[2019-01-04 07:35] LABS: CALCIUM 8.6 mg/dL (8.8-10.2); CREATININE 1.5 mg/dL (0.7-1.2); MAGNESIUM 2.1 mg/dL (1.5-2.7); POTASSIUM 3.8 mmol/L (3.5-5.1)
[2019-01-04] MEDS: DUONEB (A & A) INH PRN (07:47)
[2019-01-04 07:49] LABS: HEMOGLOBIN A1C 9.3 % (4.8-6.0)
[2019-01-04] MEDS ORDERED: INSULIN PEN NEEDLES ONE (08:07)
[2019-01-04] MEDS ORDERED: BUSPAR PO SCH (09:00)
[2019-01-04] MEDS ORDERED: CELEXA PO SCH (09:00)
[2019-01-04] MEDS: IMDUR PO SCH (09:51)
[2019-01-04] MEDS: MAXIPIME 1 GM in NS 50 ML IV SCH ×2 (09:51→20:10)
[2019-01-04] MEDS: LOPRESSOR PO SCH ×2 (09:51→20:09)
[2019-01-04] MEDS: LASIX PO SCH (09:52)
[2019-01-04] MEDS: DITROPAN PO SCH ×2 (09:52→20:09)
[2019-01-04] MEDS: LYRICA PO SCH ×2 (09:57→20:22)
[2019-01-04] MEDS: HUMULIN 70/30 SUBQ SCH ×2 (10:03→21:00)
--- NOTE | 2019-01-04 15:00 | ORTHOPAEDICS CONSULTATION ---
DATE: 01/04/2019 CONSULT FROM: Dr. Burks. PAST MEDICAL HISTORY: 1. Diabetes. 2. Coronary artery disease. 3. Hypertension. 4. Sleep apnea. 5. Hyperlipidemia. 6. Diabetic foot ulcer. 7. COPD. PAST SURGICAL HISTORY: 1. Coronary artery bypass grafting. 2. Right total knee arthroplasty. 3. TURP procedure. 4. Percutaneous cardiac stent placement. MEDICATIONS: See chart. ALLERGIES: No known drug allergies. SOCIAL HISTORY: Patient denies any tobacco, alcohol, drug use. He lives in [place]. FAMILY HISTORY: Noncontributory. REVIEW OF SYSTEMS: Negative other history present illness. CHIEF COMPLAINT: Left foot ulcer. HISTORY OF PRESENT ILLNESS: Mr. Arauz is a 78-year-old gentleman who has been seen and followed by Dr. Murray for left foot ulcers and cellulitis. He was last seen earlier this week with concerns of left foot cellulitis 5th metatarsal with a wound. He was placed on oral antibiotics at that time. He states the oral antibiotics did not seem to be helping so he called and Dr. Murray sent him to ER for evaluation and IV antibiotics. He was thus admitted, orthopedic surgery consulted. The patient states his foot seems to be looking a little better since he started IV antibiotics. He has been dealing with these ulcers chronically for the last couple years. The ulcer on the lateral aspect of his 5th toe is more recent however. He denies any nausea, vomiting, fever, chills. PHYSICAL EXAM: General: Mr. Arauz is a 78-year-old male appears nourished, well developed, no acute distress. Is awake, alert, oriented x3. Very pleasant, cooperative during examination. White count 7, hemoglobin 11, hematocrit 36, platelets 219,000. HEENT: Normocephalic, atraumatic. Respiratory: Nonlabored breathing . Cardiovascular: Regular rate and rhythm. Extremities: Examination left lower extremity shows a soupy appearing ulcer on the lateral aspect of the left 5th toe. There is mild subcutaneous air and purulence expressed from this. He also has a quarter-sized plantar ulceration over the plantar surface of his 1st MTP joint. This is not seen to probe to bone. He has desquamation globally across foot. He has some erythema around his forefoot however does not track proximally into midfoot area. No other areas of palpable fluctuance or abscess. IMAGING: Three views of the left foot were reviewed demonstrating some lateral cortical erosion of the proximal and middle phalanx of the 5th toe were not present on prior x-ray about 10 months ago. This is concerning for osteomyelitis. ASSESSMENT: A 78-year-old male with left foot 5th toe probable osteomyelitis. PLAN: 1. Long discussion was held with patient regarding diagnosis and treatment options. His cellulitis infection was worsening on oral antibiotics so thus presented for IV medications. He is currently on cefepime and linezolid per Infectious Disease recommendations. Appreciate their recs. Recommend continuing antibiotics and observing clinically for now. Will see how patient does over the next 24 to 48 hours and determine whether or not he is improving. If he is not improving and continues to have drainage from this 5th toe ulcer may consider amputation. 2. Patient can keep the wound dressed with Mepilex type dressing which is currently present. 3. Lovenox DVT prophylaxis. 4. Wound care is consulted. 5. Will discuss patient with Dr. Murray tomorrow to for more definitive plan.
[2019-01-04] MEDS ORDERED: VANCOMYCIN 1,750 MG in NS 250 ML IV SCH (16:00)
--- NOTE | 2019-01-04 18:14 | PROGRESS NOTE ---
DATE: 01/04/2019 SUBJECTIVE: The patient is resting comfortably. He has no complaints at this time. OBJECTIVE: Vital Signs: Temperature 98.5 degrees, blood pressure 137/85, heart rate 50, respirations 16, O2 saturation is 94% on 2 L nasal cannula. Urine output 1.9 L. General: This is a chronically ill-appearing, elderly male, sitting at the edge of the bed in no acute distress. Heart: S1, S2 normal. Regular rate and rhythm. Lungs: Equal air entry bilaterally. No wheezing. No rales. No rhonchi. Abdomen: Positive bowel sounds. Soft, nontender, nondistended. Extremities: The patient has cellulitis involving the left foot. LABORATORY DATA: Reviewed. ASSESSMENT AND PLAN: 1. Left 5th toe osteomyelitis with cellulitis. Continue with IV antibiotic therapy. We will consult with ID for further antibiotic recommendations. The foot x-ray shows possible osteomyelitis involving the 5th proximal and middle phalanges on the left foot. 2. Chronic kidney disease stage 3. Stable. 3. Morbid obesity. Aware. 4. Diabetes mellitus type 2, uncontrolled. Continue with long-acting insulin and sliding-scale insulin. 5. Hypertension. Controlled. Continue on the current antihypertensive medications. 6. Hypothyroidism. Continue on Synthroid. 7. Deep vein thrombosis prophylaxis. Continue on Lovenox. cc: Nancie Burks MD MTDKenzie
[2019-01-04] MEDS: FLOMAX PO SCH (20:09)
[2019-01-04] MEDS: PRAVACHOL PO SCH (20:09)
[2019-01-04] MEDS: TRICOR PO SCH (20:09)
[2019-01-04] MEDS: LOVENOX SUBQ SCH (20:09)
[2019-01-05] MEDS: ZYVOX 600 MG/D5W 600 MG/300 ML IVPB IV SCH (05:27)
[2019-01-05] MEDS: SYNTHROID PO SCH (05:27)
[2019-01-05] MEDS: HUMULIN R SUBQ SCH ×4 (06:40→17:29)
[2019-01-05] MEDS: PRILOSEC PO SCH (06:40)
[2019-01-05 06:54] LABS: HEMATOCRIT 35.1 % (42.0-52.0); HEMOGLOBIN 10.9 g/dL (14.0-18.0); MCH 27.4 PG (27-31); MCHC 31.1 g/dL (33-37); MCV 88.2 FL (81-99); RBC 3.98 XMIL (4.7-6.1); RDW 13.4 % (11.5-14.5); WBC 7.76 X1000 (4.8-10.8)
[2019-01-05 07:22] LABS: CALCIUM 8.8 mg/dL (8.8-10.2); CREATININE 1.5 mg/dL (0.7-1.2); POTASSIUM 4.7 mmol/L (3.5-5.1)
[2019-01-05] MEDS: DUONEB (A & A) INH PRN ×2 (07:50→15:35)
[2019-01-05] MEDS: MAXIPIME 1 GM in NS 50 ML IV SCH (08:14)
[2019-01-05] MEDS: DITROPAN PO SCH (08:15)
[2019-01-05] MEDS: IMDUR PO SCH (08:15)
[2019-01-05] MEDS: LOPRESSOR PO SCH (08:15)
[2019-01-05] MEDS: LYRICA PO SCH (08:15)
[2019-01-05] MEDS: LASIX PO SCH (08:15)
[2019-01-05] MEDS: HUMULIN 70/30 SUBQ SCH (08:18)
[2019-01-05] MEDS: MORPHINE IV PRN ×2 (08:19→14:45)
--- NOTE | 2019-01-05 10:40 | ORTHOPAEDICS PROGRESS NOTE ---
DATE: 01/05/2019 SUBJECTIVE: No acute events overnight. The patient denies much pain in his left foot. He is tolerating a diet. He has no other complaints. OBJECTIVE: Afebrile. Vital signs are stable. Examination of the left foot again reveals a quarter-size plantar ulcer at his first MTP joint. There is no erythema or drainage from this. It does not appear to probe deep. He also has a small ulcer on the lateral aspect of his fifth digit. He has some serous drainage from this. No purulence expressed. Erythema is stable from yesterday. It is not progressing proximally. There is 2+ pitting edema in the left lower extremity up to the knee. Brisk capillary refill x5. LABORATORY DATA: White count stable at 7.7, hematocrit is 35. BUN 28, creatinine 1.5. ASSESSMENT: A 78-year-old male with left fifth toe osteomyelitis with ulceration. PLAN: 1. The patient can continue weightbearing as tolerated on his left lower extremity. Continue Mepilex dressings over his ulcers. 2. Continue cefepime and linezolid per Infectious Disease recommendations. Appreciate ID recommendations. 3. We discussed definitive treatment with the patient. He is currently not septic from this toe. Will go ahead and make him n.p.o. at midnight tonight, and discuss the patient with Dr. Murray, who will make a definitive decision tomorrow. I think he will likely end up needing an amputation of this toe given the osteolytic changes on x-ray. However, he is not sick from this right now, so I think it is reasonable to continue IV antibiotics at this time.
--- NOTE | 2019-01-05 11:48 | PROGRESS NOTE ---
DATE: 01/05/2019 SUBJECTIVE: The patient is sitting at the edge of the bed, getting ready to eat breakfast. He states that he kept waking up last night. OBJECTIVE: Vital Signs: Temperature 98.5 degrees, blood pressure 125/50, heart rate 58, respirations 17, O2 saturation 97% on 2 L nasal cannula. General: This is a morbidly obese male, sitting at the edge of the bed in no acute distress. Heart: S1, S2 normal. Regular rate and rhythm. Lungs: Equal air entry bilaterally. No wheezing. No rales. No rhonchi. Abdomen: Positive bowel sounds. Soft, nontender, nondistended. Extremities: The right foot is erythematous. The patient has an ulceration on the left fifth toe, as well as surrounding erythema. Neurologic: The patient is alert and oriented x4. LABORATORY DATA: White blood cell count 7.7, hemoglobin 10, hematocrit 35, platelets 220,000. Sodium 137, potassium 4.7, chloride 98, CO2 of 29, BUN 28, creatinine 1.5, glucose 213, calcium 8.8. ASSESSMENT AND PLAN: 1. Left fifth toe osteomyelitis with cellulitis. Continue with antibiotic therapy. Orthopedic Surgery is following. Will also consult with Infectious Disease. 2. Chronic kidney disease stage 3. Stable. 3. Morbid obesity. Aware. 4. Chronic hypoxemic respiratory failure. Stable. 5. Uncontrolled diabetes mellitus type 2. Continue on long-acting insulin plus sliding scale insulin. 6. Hypothyroidism. Continue on Synthroid. 7. Hypertension. Controlled. 8. Deep vein thrombosis prophylaxis. Continue on Lovenox. cc: Nancie Burks MD MTDD
[2019-01-05] MEDS ORDERED: MAXIPIME 2 GM in NS 50 ML IV SCH (13:28)
[2019-01-05] MEDS: MAXIPIME 2 GM in NS 100 ML IV SCH (14:37)
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
[2019-01-05] MEDS: ZYVOX PO SCH (17:29)
[2019-01-06] MEDS: HUMULIN 70/30 SUBQ SCH ×2 (00:51→18:34)
[2019-01-06] MEDS: PRAVACHOL PO SCH ×2 (00:53→23:10)
[2019-01-06] MEDS: HUMULIN R SUBQ SCH ×5 (00:53→23:10)
[2019-01-06] MEDS: TRICOR PO SCH ×2 (00:53→23:09)
[2019-01-06] MEDS: DITROPAN PO SCH ×3 (00:54→23:09)
[2019-01-06] MEDS: LOPRESSOR PO SCH ×3 (00:54→23:09)
[2019-01-06] MEDS: FLOMAX PO SCH ×2 (00:54→23:09)
[2019-01-06] MEDS: LOVENOX SUBQ SCH ×2 (01:00→23:10)
[2019-01-06] MEDS: LYRICA PO SCH ×3 (01:00→23:09)
[2019-01-06] MEDS: MAXIPIME 2 GM in NS 100 ML IV SCH ×3 (02:19→18:20)
[2019-01-06 06:41] LABS: HEMATOCRIT 35.4 % (42.0-52.0); MCH 26.8 PG (27-31); MCHC 31.1 g/dL (33-37); MCV 86.3 FL (81-99); RBC 4.1 XMIL (4.7-6.1); RDW 13.2 % (11.5-14.5); WBC 7.62 X1000 (4.8-10.8)
[2019-01-06] MEDS: SYNTHROID PO SCH (06:50)
[2019-01-06] MEDS: PRILOSEC PO SCH (06:50)
[2019-01-06] MEDS ORDERED: INSULIN PEN NEEDLES ONE (07:22)
[2019-01-06 07:31] LABS: CREATININE 1.8 mg/dL (0.7-1.2); POTASSIUM 4.2 mmol/L (3.5-5.1)
[2019-01-06] MEDS: IMDUR PO SCH (08:59)
[2019-01-06] MEDS: ZYVOX PO SCH (08:59)
[2019-01-06] MEDS: LASIX PO SCH (11:28)
--- NOTE | 2019-01-06 15:19 | Diag Imaging Result Doc PS360 ---
3 PHASE BONE SCAN - 01/06/2019 INDICATION: Left foot osteomyelitis TECHNIQUE: Three phase bone scan of the feet. 28.7 mCi of MDP was administered. COMPARISON: Left foot x-rays 01/03/2019 FINDINGS: There is intense hyperperfusion of the medial left forefoot. There is also increased activity on the blood pool phase images all throughout the left forefoot. However on the delayed phase images, uptake is normal. No abnormal bony uptake. IMPRESSION: Hyperperfusion of the superficial soft tissues of the left forefoot compatible with cellulitis. No evidence of osteomyelitis. Electronically signed by Librado Nuñez 01/06/2019 3:16 PM
--- NOTE | 2019-01-06 16:59 | INFECTIOUS DISEASE PROGRESS NO ---
DATE: 01/06/2019 HISTORY OF PRESENT ILLNESS: Patient has left leg cellulitis involving the area starting between the knee and ankle and extending to the foot. The patient's left little toe on x-ray appeared to have osteomyelitis, however, a 3 phase bone scan today of the left foot shows there is no osteomyelitis in any of the foot. MEDICATIONS: The patient is on a combination of cefepime and Zyvox. PHYSICAL EXAMINATION: Vital Signs: Temperature is 98.6 degrees, pulse 54, respirations 19, blood pressure is 149/60. General: This is a morbidly obese, elderly male. He is in no acute distress. He is sleeping currently. HEENT: No drainage noted from the nose or ears. Cardiovascular: Heart rate is regular. Lungs: There were distant breath sounds but I did not hear any rales or rhonchi . Cardiovascular: Heart rate is irregular. Abdomen: Soft and not tender. Extremities: There is erythema in the left leg as mentioned above. I removed the dressing from the patient's foot. The left little toe is erythematous, swollen, and it has some seropurulent drainage coming from it. There also is an odor from the toe. LAB AND X-RAY: As mentioned above, the x-ray showed that there was osteomyelitis in the left fifth toe. The bone scan showed there was no osteomyelitis in any of the foot. The left foot is growing a gram-negative kell. ASSESSMENT AND PLAN: For now, I am going to continue cefepime IV and stop Zyvox pending the final results of culture from the patient's foot. COMORBIDITIES: Morbid obesity, diabetes mellitus, chronic obstructive pulmonary disease, benign prostatic hypertrophy. The patient did smoke cigarettes but he stopped 20 years ago. cc: Alen Banks MD
--- NOTE | 2019-01-06 17:15 | PROGRESS NOTE ---
DATE: 01/06/2019 SUBJECTIVE: The patient is resting comfortably in bed. He has no complaints. OBJECTIVE: Vital Signs: Temperature 97 degrees, blood pressure 147/66, heart rate 60, respirations 20, O2 saturation 97% on 2 L nasal cannula. General: This is a overweight male, lying in bed in no acute distress. Heart: S1, S2 normal. Regular rate and rhythm. Lungs: Clear to auscultation bilaterally. Abdomen: Positive bowel sounds. Soft, obese, nontender, nondistended. Extremities: The patient has an ulceration on the left 5th toe with surrounding erythema. The patient also has swelling involving the leg. Neurologic: The patient is alert and oriented x4. LABORATORY DATA: White blood cell count 7.6, hemoglobin 11, hematocrit 35, platelets 238,000. Sodium 143, potassium 4.2, chloride 103, CO2 of 28, BUN 29, creatinine 1.8. ASSESSMENT AND PLAN: 1. Left 5th toe osteomyelitis with cellulitis. Continue with antibiotic therapy. The patient is scheduled for a bone scan today. Orthopedic Surgery and Infectious Disease are following. 2. Chronic kidney disease stage 3. The patient's creatinine is slightly elevated. We will hold the Lasix at this time. Continue to monitor closely. 3. Morbid obesity. Aware. 4. Chronic hypoxemic respiratory failure. Stable. Continue with supplemental oxygen. 5. Diabetes mellitus, type 2. Continue on long-acting insulin and sliding scale insulin. 6. Hypertension. Controlled. 7. Hypothyroidism. Continue on Synthroid. 8. Deep vein thrombosis prophylaxis. Continue on Lovenox. cc: Nancie Burks MD MTDD
[2019-01-07] MEDS: MAXIPIME 2 GM in NS 100 ML IV SCH (03:47)
[2019-01-07] MEDS: SYNTHROID PO SCH (06:09)
[2019-01-07] MEDS: PRILOSEC PO SCH (06:09)
[2019-01-07 06:33] LABS: BASO# 0.06 X1000 (0.0-0.2); BASO% 0.9 % (0.0-0.8); EOS# 0.38 X1000 (0.0-0.7); EOS% 5.7 % (0.0-10.0); HEMATOCRIT 34.2 % (42.0-52.0); HEMOGLOBIN 10.6 g/dL (14.0-18.0); LYMPH# 1.32 X1000 (1.2-3.4); MCH 27.1 PG (27-31); MCV 87.5 FL (81-99); MONO# 0.98 X1000 (0.11-0.59); MONO% 14.8 % (1.7-9.3); MPV 12.1 FL (7.4-10.4); NEUT# 3.87 X1000 (1.4-6.5); NEUT% 58.6 % (42.2-75.2); PLT 228 X1000 (130-400); RBC 3.91 XMIL (4.7-6.1); RDW 13.3 % (11.5-14.5); WBC 6.61 X1000 (4.8-10.8)
[2019-01-07 06:48] LABS: CALCIUM 9.3 mg/dL (8.8-10.2); CREATININE 1.6 mg/dL (0.7-1.2); POTASSIUM 4.4 mmol/L (3.5-5.1)
[2019-01-07] MEDS: HUMULIN R SUBQ SCH ×4 (06:49→23:10)
[2019-01-07] MEDS: DITROPAN PO SCH ×2 (08:26→21:53)
[2019-01-07] MEDS: LYRICA PO SCH ×2 (08:26→21:53)
[2019-01-07] MEDS: IMDUR PO SCH (08:26)
[2019-01-07] MEDS: LOPRESSOR PO SCH ×2 (08:26→21:53)
[2019-01-07] MEDS: HUMULIN 70/30 SUBQ SCH ×2 (08:29→17:52)
--- NOTE | 2019-01-07 08:38 | ORTHOPAEDICS PROGRESS NOTE ---
DATE: 01/07/2019 SUBJECTIVE: Mr. Arauz is well known to my service. I have been treating him for a long time. Unfortunately this left foot has just not healed over the past year and then he started getting a new ulcer over the 5th toe and has gotten worse, so he came to the hospital and was admitted and is on IV antibiotics. OBJECTIVE: Left lower extremity exam: He does have that wound over the small toenail. It is draining a little bit and there is some erythema around that area. He still has that plantar wound underneath that first MTP joint which still looks about the same. It is just a nonhealing diabetic foot ulcer. ASSESSMENT: 1. Left diabetic foot ulcer. 2. Left 5th toe osteomyelitis. PLAN: I discussed with Mr. Arauz about everything going on. His wound cultures are growing gram-negative rods. We do not have any exact bacteriuria yet identified. I discussed with him also about the possibility of amputation of the toe versus even a gljsk-ovc-pyil amputation. Before we committed to an amputation I do want Vascular to see him to better evaluate his blood flow. If he does not have great blood flow at all to the foot, we more than likely will need to proceed with a [id number] amputation. I did discuss that with him. After we get some more information from a vascular standpoint, we will be able to make a better decision about the level of the amputation that we will have to do. We will continue to follow. cc: Jayro Murray MD
--- NOTE | 2019-01-07 09:29 | PROGRESS NOTE ---
DATE: 01/07/2019 SUBJECTIVE: Mr. Arauz was sitting up at the side of the bed, a bit frustrated. Understands we need to do some more studies on his feet. He remains afebrile. OBJECTIVE: Temperature 98.5 degrees, pulse 54, respirations 16, blood pressure 154/83. Pupils are equal and round. Lungs are clear in all lung quiros. Cardiovascular Examination: Regular rhythm and rate without murmur or S3. Abdomen is soft. Skin is warm and dry. Urine output is 3100 mL. Blood sugar 186, 79, and 80. ASSESSMENT AND PLAN: 1. Left fifth toe osteomyelitis and cellulitis. Continue antibiotic coverage. The patient is scheduled for a bone scan. Orthopedic surgery and infectious disease are following. 2. Chronic kidney disease stage 3. Patient's creatinine is slightly elevated. Holding his Lasix at this time. 3. Morbid obesity. Aware. 4. Chronic hypoxemic respiratory failure. No breathing issues. Continue supplemental oxygen. 5. Diabetes mellitus type 2. 6. Hypertension. 7. Hypothyroidism. 8. He is on deep venous thrombosis prophylaxis using Lovenox. REVIEW OF ORDERS: He is on Tricor 150 mg at bedtime, Pravachol 40 mg at bedtime, Flomax 0.4 mg at bedtime, Lovenox 30 mg subcutaneous daily. He is on insulin Humulin 70/30 with 60 units and 80 units, isosorbide mononitrate 60 mg daily, Synthroid 25 mcg daily, cefepime 2 g IV q.12, Lopressor 50 mg b.i.d., Lyrica 75 mg b.i.d., Ditropan 10 mg b.i.d., sennoside docusate 2 tablets at bedtime p.r.n. cc: Joselito Castañeda MD
[2019-01-07] MEDS ORDERED: ROCEPHIN 2 GM in NS 50 ML IV SCH (11:00)
--- NOTE | 2019-01-07 11:38 | INFECTIOUS DISEASE PROGRESS NO ---
DATE: 01/07/2019 PRESENT ILLNESS: The patient has a Proteus cellulitis of the left foot. The x-ray does suggest that osteomyelitis is present. However, a 3 phase bone scan shows that there is no osteomyelitis in the foot. MEDICATIONS: The patient is receiving cefepime. PHYSICAL EXAMINATION: Vital Signs: Temperature is 98.5 degrees, pulse 54, respirations 16, blood pressure is 154/83. General: This is an obese, elderly male. He is in no acute distress. Head/eyes/ears/nose/throat: He can hear my spoken words and see near objects. He has dentures in place. Neck: No pain with movement. Lungs: Clear to auscultation. Cardiovascular: Heart rate is irregular. Abdomen: Soft and not tender. Extremities: The left leg has a plantar ulcer present. The left leg also is more swollen than the right leg. The patient's left little toe has a lateral ulcer present with some seropurulent drainage. The leg is as mentioned above, swollen. It is also erythematous and there is some scaling of the skin. The right leg is less swollen, it too has some erythema and scaling of the skin. LAB AND X-RAY STUDIES: There is no new radiographic study. The culture taken from the patient's left foot grew Proteus sensitive to go all the antibiotics tested. The creatinine is 1.6. GFR is 42. CBC shows a white count of 6610, hemoglobin 10.6, and platelet count 228,000. No new radiographic study. ASSESSMENT AND PLAN: The patient has left leg cellulitis due to Proteus. My plan is to discontinue cefepime and put the patient on Rocephin 2 g IV daily. While the patient is in the hospital I am going to continue with Rocephin. When he goes home I will send him home on an oral antibiotic such as amoxicillin or Levaquin. COMORBIDITIES: The patient is morbidly obese. He also has diabetes mellitus, chronic obstructive pulmonary disease, benign prostatic hypertrophy. The patient smoked many years ago, but has stopped smoking for the past 20 years. cc: Alen Banks MD
[2019-01-07] MEDS: PRAVACHOL PO SCH (21:53)
[2019-01-07] MEDS: FLOMAX PO SCH (21:53)
[2019-01-07] MEDS: LOVENOX SUBQ SCH (21:53)
[2019-01-07] MEDS: TRICOR PO SCH (21:53)
[2019-01-08] MEDS: PRILOSEC PO SCH (06:13)
[2019-01-08] MEDS: SYNTHROID PO SCH (06:13)
[2019-01-08] MEDS: HUMULIN R SUBQ SCH (06:50)
[2019-01-08 07:17] LABS: BASO# 0.05 X1000 (0.0-0.2); BASO% 0.7 % (0.0-0.8); EOS# 0.36 X1000 (0.0-0.7); EOS% 5.1 % (0.0-10.0); HEMATOCRIT 37.2 % (42.0-52.0); HEMOGLOBIN 11.5 g/dL (14.0-18.0); LYMPH# 1.42 X1000 (1.2-3.4); LYMPH% 20.2 % (20.5-51.1); MCHC 30.9 g/dL (33-37); MCV 87.3 FL (81-99); MONO# 0.82 X1000 (0.11-0.59); MONO% 11.7 % (1.7-9.3); MPV 12.2 FL (7.4-10.4); NEUT# 4.37 X1000 (1.4-6.5); NEUT% 62.3 % (42.2-75.2); PLT 256 X1000 (130-400); RBC 4.26 XMIL (4.7-6.1); RDW 13.4 % (11.5-14.5); WBC 7.02 X1000 (4.8-10.8)
[2019-01-08] MEDS: LOPRESSOR PO SCH (10:03)
[2019-01-08] MEDS: LYRICA PO SCH (10:03)
[2019-01-08] MEDS: DITROPAN PO SCH (10:03)
[2019-01-08] MEDS: IMDUR PO SCH (10:03)
--- NOTE | 2019-01-08 10:04 | GENERAL SURGERY CONSULTATION ---
DATE: 01/08/2019 HISTORY OF PRESENT ILLNESS: Mr. Arauz is a 78-year-old white male who has diabetes and has a neuropathic ulcer at the plantar aspect of his left foot that has been present for over a year. He [facility] and by Dr. Anthony, and also was referred to Dr. Murray. I have been asked to evaluate him regarding his vasculature. PAST MEDICAL HISTORY: Pertinent for diabetes, coronary artery disease, hypertension, sleep apnea, hyperlipidemia, COPD. PAST SURGICAL HISTORY: Coronary bypass, right knee replacement, TURP, and a stent in his circumflex artery. SOCIAL HISTORY: Denies smoking, alcohol, or illicit drug use. FAMILY HISTORY: Pertinent for coronary disease. MEDICATIONS: Include Lasix, TriCor, Colace, pravastatin, metoprolol, Imdur, Flomax, Celexa, Synthroid, Humulin 70/30, Ditropan, Protonix, buspirone, and Lyrica. ALLERGIES: He has no known drug allergies. REVIEW OF SYSTEMS: Positive as noted above, and negative in the rest of the 10 subsystems. PHYSICAL EXAMINATION: Vital Signs: He is afebrile, heart rate 70, blood pressure 143/55. Neck: No cervical adenopathy. Lungs: Bilateral breath sounds are present. Heart: Regular rate and rhythm. Abdomen: Soft. Extremities: Femoral pulses are present. No pedal pulses are present. He has some slight erythema and swelling of the left lower extremity. The ulcer is on the plantar aspect of the foot at the first metatarsal joint. Neurologic: He is awake, alert, and oriented. IMAGING AND LABORATORY DATA: White count is 7000, hemoglobin 11.5, hematocrit 37. BUN is between 1.5 and 1.8, yesterday it was 1.6. He has had a lower extremity arterial study, which revealed pulsatile flow at the digital level bilaterally. This is compared to the study back in September of which he also had pulsatile flow. ASSESSMENT: Based on his lower extremity arterial study, he should have adequate perfusion to heal this wound. One might consider CT angiogram with runoff, but his creatinine is borderline, and in fact a bit elevated, so I would not subject him to CT angiography with this creatinine when his lower extremity artery is as good as it is, so I would recommend that he be discharged to follow up at the [facility] or at Dr. Murray's office for his wound care, but no vascular intervention is indicated at this time. cc: Jimmy Hussein MD
[2019-01-08] MEDS ORDERED: PNEUMOVAX 23 IM ONE (10:45)
[2019-01-08 11:41] VITALS: BP 165/63
[2019-01-08] MEDS: HUMULIN 70/30 SUBQ SCH (11:44)
[2019-01-08] MEDS ORDERED: INSULIN PEN NEEDLES ONE (11:58)
--- NOTE | 2019-01-08 12:43 | INFECTIOUS DISEASE PROGRESS NO ---
DATE: 01/08/2019 SUBJECTIVE: The patient has a Proteus cellulitis of the left foot. He is going to be discharged today. PLAN: I have electronically sent a prescription for Augmentin to the pharmacy of the patient's choice for Augmentin 875 mg q.12 hours for a total of 15 days. I have requested that the patient come to my office in 2 weeks for followup care. Some of the side effects of Augmentin including rash and diarrhea have been explained to the patient, who agrees with treatment. Also, I have explained to the patient that it is very important that he keep his legs elevated as much as he can because his legs are very edematous. Also I told the patient to control his diabetes as best as he can. cc: Alen Banks MD MTDD
--- NOTE | 2019-01-08 13:27 | DISCHARGE SUMMARY ---
ADMISSION DATE: 01/03/2019 DISCHARGE DATE: 01/08/2019 PRIMARY CARE PHYSICIAN: He is a patient of Dr. Nilesh Ricketts. HISTORY OF PRESENT ILLNESS/HOSPITAL COURSE: This is a 78-year-old male who presented to the emergency room, states he saw Dr. Murray on Sunday of that week and was given oral antibiotic for left foot cellulitis, left 5th metatarsal osteomyelitis I believe. The patient states that Dr. Murray informed him that if his foot did not improve to notify him. The patient states that the foot began to get more red and started to have some purulent drainage, so he came to the hospital and was admitted for treatment of osteomyelitis. 1. Osteomyelitis. Infectious Disease was consulted. Dr. Murray followed along as well. I think Dr. Hussein was consulted to look at the vascular supply. 2. Diabetes mellitus type 2. He remained on pattern sugars, sliding scale. 3. Coronary artery disease, showed no sign of active cardiac ischemia. 4. Hypertension. 5. COPD. Ordered some breathing treatments. 6. Gastrointestinal prophylaxis. Put on Prilosec. Dr. Silverio, one of Dr. Murray's partners, evaluated and had a long discussion with the patient regarding diagnosis, treatment options, cellulitis, medication. His cellulitis infection was worsening on oral antibiotics, so he was put on IV antibiotics. They put him on cefepime and linezolid under Dr. Banks' direction and kept topical treatments, used Mepilex type dressing, and he showed some improvement. He had left leg cellulitis and osteomyelitis. The cellulitis seemed to improve, and the swelling seemed to go down. Continue the cefepime and Zyvox. Dr. Hussein evaluated his lower extremity arterial study. He should have adequate perfusion to heal the wound. One might consider CT angiogram with runoff, but his creatinine was borderline and in fact a little elevated, so I did not want to subject him to the CT dye for possible renal dysfunction. So, he will get a followup with [facility], and he wanted to go home. The x-ray suggested osteomyelitis. He had a 3-phase bone scan, and there was no osteomyelitis in that foot. He was receiving cefepime, so I put the patient on Rocephin 2 grams IV daily, and he is going to continue the Rocephin while he is in the hospital and send him home on oral antibiotic, amoxicillin or Levaquin. The patient is morbidly obese, and I encouraged him to elevate his legs, but Dr. Banks has got his antibiotics ready to go, and we will let him go home today at his request. DISCHARGE MEDICATIONS: He is going to be on Tricor 145 mg daily p.o. He takes his Humulin 70/30 at 80 units I believe in the morning, Imdur 60 mg a day, Synthroid 25 mcg daily, Lopressor 50 mg twice a day, Prilosec 20 mg a day, Pravachol 40 mg every night at bedtime, Ditropan 10 mg twice a day, Lyrica 75 mg b.i.d., Yoselin-Colace 2 every night at bedtime p.r.n., and Flomax 0.[address] Banks called in his Augmentin, sent it to the pharmacy [phone] one twice a day for 15 days. He will stay on his buspirone 10 mg b.i.d., Celexa 40 mg a day, Tricor 145 mg a day, Lasix 80 mg a day. His insulin Humulin, he is takes 70/30 at 60 units in the evening and 80 units in the morning, Imdur 60 mg daily, Synthroid 25 mcg a day, metoprolol 50 mg b.i.d., Ditropan 10 mg b.i.d., and Protonix 40 mg a day, pravastatin 40 mg every night at bedtime, Lyrica 75 mg b.i.d., sennoside docusate softener 2 tablets every night at bedtime p.r.n., Flomax 0.4 mg every night at bedtime. cc: Joselito Castañeda MD
== END 2019-01-08 12:59 | disposition home or self-care (01) | DRG 603 ==
LOC: ED 11:56 → SUATTDRO 15:04 → 4N 15:04
PROVIDERS: ATTEND Emergency Medicine

== ENCOUNTER 2019-02-05 09:49 | Inpatient (IN) ==
--- NOTE | 2019-02-05 10:19 | PROVIDER DOCUMENTATION ---
HPI-General Adult - General Chief Complaint: Chest Pain Stated Complaint: LEG SWELLING Time Seen by Provider: 02/05/19 09:59 Source: patient Allergies/Adverse Reactions: Patient Allergies Allergy/AdvReac Type Severity Reaction Status Date / Time No Known Allergies Allergy Verified 02/05/19 10:20 Home Medications: Home Medication List Medication Instructions Recorded Confirmed Last Taken Type Furosemide [Lasix] 40 mg PO BID 08/30/12 02/05/19 02/08/18 History Isosorbide Mononitrate E.r. [Imdur] 60 mg PO DAILY 03/28/15 02/05/19 02/08/18 History Metoprolol Tartrate 50 mg PO BID 03/28/15 02/05/19 02/08/18 History Pravastatin Sodium 40 mg PO QHS 03/28/15 02/05/19 02/07/18 History Citalopram [Celexa] 40 mg PO DAILY 03/06/17 02/05/19 02/07/18 History Tamsulosin [Flomax] 0.4 mg PO QHS 03/06/17 02/05/19 02/07/18 History Insulin Humulin 70/30 [Humulin 60 unit SUBQ QPM 04/24/17 02/05/19 02/07/18 History 70/30] Insulin Humulin 70/30 [Humulin 80 units SQ QAM 04/24/17 02/05/19 02/08/18 History 70/30] Oxybutynin [Ditropan] 5 mg PO BID 04/24/17 02/05/19 02/08/18 History Pantoprazole Sodium 40 mg PO DAILY 07/20/17 02/05/19 02/08/18 History Buspirone HCl 10 mg PO BID 01/03/19 02/05/19 Unknown History Pregabalin [Lyrica] 75 mg PO BID 01/03/19 02/05/19 Unknown History - History of Present Illness -Gen Adult Nature of Presenting Problems: Pt. is 78 yom that presents with c/o left foot and leg swelling. He reports he has been treated for this for [address] Murray and was in his office yesterday but states this morning his foot and leg swelling was increased greatly. He reports minimal feeling and states he is a diabetic. He reports Dr. Daigre told him he might have to amputate his lower leg. He denies any injury. Location of Pain/Injury: reports: lower extremity (Left). denies: none, head, face, mouth, neck, chest, upper extremity, hand(s), abdomen, back, pelvis, genitalia, feet, upper body, lower body, generalized, other Pain Radiation: reports: no radiation. denies: arm(s), back, buttocks, chest, epigastric, feet, groin, jaw, flank (L), legs (lower), LLQ, LUQ, neck, periumbilical, flank (R), RLQ, RUQ, shoulder(s), scapula, scrotal, sternal notch, suprapubic, legs (upper), urethral, vaginal, other Quality of Pain: reports: none. denies: aching, indigestion, tightness Severity: reports: moderate. denies: mild, severe Onset/Duration: reports: gradual, other (Years) Timing: reports: still present, changing over time, getting worse. denies: gone now, resolved prior to arrival, intermittent Context/Activities at Onset: reports: none. denies: light activity, moderate activity, vigorous activity, recent emotional stress, recent physical stress, recent trauma history, possible bad food, cold exposure, eating, out of country travel, rest, sleep, sexual activity, other Modifying Factors: improves with: nothing Associated Symptoms: reports: other (Left lower leg swelling.). denies: denies symptoms, anxiety, arm pain, back/neck pain, chest pain, constipation, cough, diaphoresis, diarrhea, dizziness, EENT symptoms, fatigue, fever/chills, genitourinary problems, headaches, heartburn, joint pain, loss of appetite, malaise, muscle aches, sinus congestion/drainage, nausea, rash, seizure, shortn ess of breath, sensory/motor loss, pain with inspiration, swelling/mass in abdomen, syncope, vomiting, weakness, trouble walking Similar Symptoms Previously?: Yes Recently seen or treated by another doctor?: Yes Review of Systems - Adult - REVIEW OF SYSTEMS - ADULT Constitutional: reports: no symptoms reported Eyes: reports: no symptoms reported Ears, Nose, Mouth & Throat: reports: no symptoms reported Cardiovascular: reports: no symptoms reported Respiratory: reports: no symptoms reported Gastrointestinal: reports: no symptoms reported Genitourinary: reports: no symptoms reported Musculoskeletal: reports: see HPI, other (Left lower leg swelling). denies: bone pain, joint pain, muscle weakness Integumentary: reports: no symptoms reported Neurological: reports: no symptoms reported Psychiatric: reports: no symptoms reported Past History - Adult - PAST MEDICAL HISTORY-ADULT Review of Records: reports: Old Records Reviewed, Nursing Assessment Review, Medications Reviewed, Social history reviewed & non-contributory. Major Childhood Illnesses: reports: denies history Cardiovascular: reports: cardiac disease, CAD, CHF, HTN, hyperlipidemia Respiratory: reports: asthma, COPD, sleep apnea Gastrointestinal: reports: GERD Obstetrical/Gynecological: reports: denies history Genitourinary: reports: denies history Musculoskeletal: reports: denies history Neurological: reports: dementia Endocrine/Immune: reports: Diabetes, thyroid disorder Other Conditions: reports: other cancer (skin) - PRIOR SURGERIES/PROCEDURES Surgical/Procedure History: reports: CABG, cholecystectomy, cardiac stent, joint replacement, back/neck (back) - IMMUNIZATION STATUS Childhood Immunizations: See Nurse Assessment Flu Vaccine: See Nurse Assessment - FAMILY HISTORY Family History: reviewed, not pertinent - SOCIAL HISTORY Smoking: denies Physical Exam-General - PHYSICAL EXAM-ADULT Initial Vital Signs Reviewed: Yes - CONSTITUTIONAL General Appearance: alert, no apparent distress, obese. negative: anxious, obtunded, combative - EYES Eyes: PERRL/EOMI, pink conjunctivae - HEAD, EARS, NOSE, MOUTH & THROAT HENMT: normocephalic/atraumatic, moist mucous membranes - NECK Neck: non-tender, full range of motion, supple, normal inspection - RESPIRATORY Respiratory: lungs clear, normal breath sounds - CARDIOVASCULAR Cardiovascular: normal peripheral pulses, regular rate, rhythm, no edema - GASTROINTESTINAL (ABDOMEN) Abdominal Exam: normal bowel sounds, non tender, soft - LYMPHATIC Lymphatic: no adenopathy - MUSCULOSKELETAL Back Exam: normal inspection, no CVA tenderness, no vertebral tenderness Extremity: swelling (Left lower extremity). negative: normal inspection, deformity, erythema Peripheral Pulses: radial (R): 2+, radial (L): 2+ - SKIN Integumentary: normal color, other (There are two diabetic foot ulcers on the left foot. One is on the ball of the foot just behind the great toe and the second in around the 5 toe.). negative: cyanosis, jaundice, rash - NEUROLOGIC Neurologic: grossly normal, no motor/sensory deficits - PSYCHIATRIC Psych/Mental Status: normal mood/affect, normal thought content, normal thought process, oriented x 3. negative: anxious, paranoid, tearful Progress - PLAN OF CARE/RESULTS Progress/Plan/Lab Results: Vital Signs - 8 hr 02/05/19 09:58 Temperature 98.8 F Pulse Rate 55 L Respiratory Rate 21 Blood Pressure 132/84 O2 Sat by Pulse Oximetry 100 Orders Category Date Time Status Saline Loc NOW Care 02/05/19 10:10 Active CHEST-PORTABLE [RAD] Stat Exams 02/05/19 10:11 Ordered FOOT COMPLETE LEFT [RAD] Stat Exams 02/05/19 10:12 Ordered BLOOD CULTURE [BLDCUL] Stat Lab 02/05/19 10:11 Uncollected CBC WITH ELECTRONIC DIFF [HEME] Stat Lab 02/05/19 10:10 Uncollected COMPREHENSIVE METABOLIC PANEL [CHEM] Stat Lab 02/05/19 10:10 Uncollected LACTATE, PLASMA [CHEM] Stat Lab 02/05/19 10:11 Uncollected PRO B-NATRIURETIC PEPTIDE Stat Lab 02/05/19 10:10 Ordered URINALYSIS W/POSS RFLX CULT [URINALYSIS] Stat Lab 02/05/19 10:10 Uncollected WOUND CULTURE INC GRAM STAIN [RM] Stat Lab 02/05/19 10:11 Uncollected EKG [EKG] Stat Ther 02/05/19 10:10 Ordered Result Diagrams: 02/05/19 10:05 02/05/19 10:05 - EKG 1 Time of EKG reading by physician:: 10:26 EKG Read and Signed by:: Rylan So EKG Interpretation (*Must complete 3 of following elements*): Abnormal Rate: 46 Rhythm: Sinus Peter with fusion complexes - XRAY 1 XRAY: Left XRAY Study: Foot [facility] - [address] , [address] [address] [facility] - [address] [place] [address] Department of Imaging Patient: DEANGELO COCHRAN Date: 02/05/19MR#: [id number] : 1940DM Status: PRE ERAcct#: [id number] Age/Sex: 78/MRoom/Bed: Loc: ED Ordering Physician: Teodoro Yee Family Physician: Nilesh Ricketts MD Reason for Procedure: infection Signed EXAM: FOOT COMPLETE LEFT HISTORY: infection TECHNIQUE: Left foot three views COMPARISON: 01/03/2019 FINDINGS: Worsening bone destruction of the middle phalanx of the fifth toe. There is also mild stenosis of the distal portion of the proximal phalanx of the fifth toe on the current exam. IMPRESSION: Worsening osteomyelitis of the fifth toe. Electronically signed by Quincy Ovalle 02/05/2019 10:48 AM 02/05/19 1048 Interpreting Physician: Quincy Ovalle MD Dictated Date/Time: 02/05/19 1046 cc: Teodoro Yee; Nilesh Ricketts MD) XRAY Interpretation: See note 2 XRAY Study: Chest ([facility] - [address] [place] [address] [address] [id number] [facility] - [address] [place] [address] Department of Imaging Patient: DEANGELO COCHRAN Date: 02/05/19#: [id number] : 1940DM Status: PRE ERAcct#: [id number] ge/Sex: 78/MRoom/Bed: Loc: ED Ordering Physician: Teodoro Yee Family Physician: Nilesh Ricketts MD Reason for Procedure: admit Signed EXAM: CHEST-PORTABLE HISTORY: admit TECHNIQUE: Single view COMPARISON: 12/12/2018 FINDINGS: The lungs are well expanded. The heart is mildly enlarged. There are sternal wires. The vessels are not distended. There are no infiltrates. No effusion identified. IMPRESSION: Mild cardiomegaly Electronically signed by Quincy Ovalle 02/05/2019 10:45 AM 02/05/19 1045 Interpreting Physician: Quincy Ovalle MD Dictated Date/Time: 02/05/19 1044 cc: Teodoro Yee; Nilesh Ricketts MD) XRAY Interpretation: See note - CONSULTS/PCP/HOSPITALIST Notification #1 *Consult/PCP/Hospitalist*: Camille Larson Time Discussed: 13:51 Reason/Comments: Admission Consult Disposition: Will see in ED, Admit #2 Consult: Paged ortho multiple times with no call back Reason/Comments: Consult Departure - Departure Date of Disposition Decision: 02/05/19 Time of Disposition Decision: 13:52 DIAGNOSIS: Osteomyelitis Qualifiers: Osteomyelitis type: unspecified type Osteomyelitis location: foot Laterality: left Qualified Code(s): M86.9 - Osteomyelitis, unspecified Diabetic foot ulcer associated with type 2 diabetes mellitus Qualifiers: Diabetic foot ulcer location: toe Laterality: left Non-pressure ulcer stage: unspecified non-pressure ulcer stage Qualified Code(s): E11.621 - Type 2 diabetes mellitus with foot ulcer; L97.529 - Non-pressure chronic ulcer of other part of left foot with unspecified severity Disposition: ADMITTED INPATIENT 09 Certified Medical Emergency: Emergent Condition: Stable Referrals and Follow-Ups: Nilesh Ricketts MD [Primary Care Provider] - - Critical Care Note This patient required my direct & personal management of CC.: No Attestation - Physician/ KATHRYN Attestation Patient care was provided by Advanced Practice Provider:: Yes Advanced Practice Provider:: Teodoro Yee Advanced Practice Provider documentation review:: The Mid-level provider documentation, treatment plan and medical decision making was reviewed by the physician who agrees with all treatment and medical decision making by the [facility]. The physician spent face to face time with patient:: No Advanced Practice Provider documentation review:: Supervising physician onsite and consulted in the evaluation and care of this patient. The physician did not have a face to face encounter with the patient.
[2019-02-05 10:26] LABS: BASO# 0.05 X1000 (0.0-0.2); BASO% 0.6 % (0.0-0.8); EOS% 5.2 % (0.0-10.0); HEMATOCRIT 35.3 % (42.0-52.0); HEMOGLOBIN 10.5 g/dL (14.0-18.0); LYMPH# 1.55 X1000 (1.2-3.4); LYMPH% 20.1 % (20.5-51.1); MCHC 29.7 g/dL (33-37); MCV 87.4 FL (81-99); MONO# 0.91 X1000 (0.11-0.59); MONO% 11.8 % (1.7-9.3); MPV 11.8 FL (7.4-10.4); NEUT# 4.82 X1000 (1.4-6.5); NEUT% 62.3 % (42.2-75.2); PLT 258 X1000 (130-400); RBC 4.04 XMIL (4.7-6.1); RDW 13.7 % (11.5-14.5); WBC 7.73 X1000 (4.8-10.8)
--- NOTE | 2019-02-05 10:28 | EKG Report ---
Test Performed on : 02/05/2019 10:26:24 AM Test Reason : admit Blood Pressure : / mmHG Vent. Rate : 046 BPM Atrial Rate : 046 BPM P-R Int : 168 ms QRS Dur : 142 ms QT Int : 512 ms P-R-T Axes : 065 022 084 degrees QTc Int : 448 ms Sinus bradycardia. with fusion complexes Right bundle branch block Abnormal ECG When compared with ECG of 02-MAY-2018 12:43, fusion complexes are now present RI interval has decreased Unconfirmed Result
[2019-02-05] MEDS ORDERED: DUONEB (A & A) INH ONE (10:47)
--- NOTE | 2019-02-05 10:47 | Diag Imaging Result Doc PS360 ---
EXAM: CHEST-PORTABLE HISTORY: admit TECHNIQUE: Single view COMPARISON: 12/12/2018 FINDINGS: The lungs are well expanded. The heart is mildly enlarged. There are sternal wires. The vessels are not distended. There are no infiltrates. No effusion identified. IMPRESSION: Mild cardiomegaly Electronically signed by Quincy Ovalle 02/05/2019 10:45 AM
--- NOTE | 2019-02-05 10:50 | Diag Imaging Result Doc PS360 ---
EXAM: FOOT COMPLETE LEFT HISTORY: infection TECHNIQUE: Left foot three views COMPARISON: 01/03/2019 FINDINGS: Worsening bone destruction of the middle phalanx of the fifth toe. There is also mild stenosis of the distal portion of the proximal phalanx of the fifth toe on the current exam. IMPRESSION: Worsening osteomyelitis of the fifth toe. Electronically signed by Quincy Ovalle 02/05/2019 10:48 AM
[2019-02-05 11:16] LABS: ALBUMIN 3.6 g/dL (3.5-5.0); CALCIUM 8.2 mg/dL (8.8-10.2); CREATININE 1.8 mg/dL (0.7-1.2); TOTAL BILIRUBIN 0.27 mg/dL (0.20-1.00); TOTAL PROTEIN 7.1 g/dL (6.3-8.3)
[2019-02-05 15:09] LABS: URINE SOURCE CLEAN CATCH
[2019-02-05 15:13] LABS: BILIRUBIN URINE NEGATIVE (NEGATIVE); BLOOD URINE TRACE (NEGATIVE); COLOR YELLOW; GLUCOSE URINE NEGATIVE (NEGATIVE); KETONE URINE NEGATIVE (NEGATIVE); LEUKOCYTES URINE NEGATIVE (NEGATIVE); NITRITE URINE NEGATIVE (NEGATIVE); PH URINE 7.5; PROTEIN URINE 200 mg/dL (NEGATIVE); SP GRAVITY URINE 1.017; TURBIDITY URINE CLEAR (CLEAR); UROBILINOGEN URINE NORMAL (NORMAL)
[2019-02-05 15:14] LABS: UR EPITHELIAL CELLS <10 /HPF (<10); URINE BACTERIA NEGATIVE /HPF; URINE WBC <10 /HPF (<10)
[2019-02-05] MEDS ORDERED: VANCOMYCIN IV PER PHARMACY MISC SCH (16:00)
[2019-02-05] MEDS ORDERED: TYLENOL PO PRN (16:31)
[2019-02-05] MEDS ORDERED: VANCOMYCIN 2,500 MG in NS 500 ML IV ONE (17:00)
[2019-02-05] MEDS: MAXIPIME 1 GM in NS 50 ML IV SCH (17:24)
--- NOTE | 2019-02-05 19:46 | ORTHOPAEDICS CONSULTATION ---
DATE: 02/05/2019 CHIEF COMPLAINT: Left diabetic foot ulcers with increased leg swelling. HISTORY OF PRESENT ILLNESS: Mr. Arauz is a 79-year-old male with a past medical history of type 2 diabetes, COPD on home oxygen, protein-calorie malnutrition, hypertension, and chronic diabetic foot ulcers that Dr. Murray has been following in clinic for over 2 years. We have been treating this left lower extremity that whole time. We have done casting, periods of nonweightbearing, local wound treatments, vascular studies and we have even tried grafting the wounds and none of this has really made much progress. Mr. Arauz does not have the capacity to heal these wounds. We have been talking with him for some time about doing a vdvee-qwo-hmbq amputation. We actually saw him yesterday in Dr. Murray's office. We had that discussion with him again. He was in agreement that something needed to be done. The problem at this time is whether we are going to do an jkdfv-pzu-wixx amputation or oxmsk-kfj-rwyq amputation. A mjmoe-ijc-llpp amputation would make for a better prosthetic device; however, we do not believe that he will be able to heal at this level. There was already concerns with as much swelling he had to the left lower leg and today it looks much worse. He has so much swelling and edema to this lower extremity that a BKA would not heal. Dr. Murray did talk about possibly doing guillotine procedure and giving that a couple days to see if placing a wound VAC could help the swelling go down. So, in the office yesterday Dr. Murray was going to talk to Dr. Hussein, who has also seen Mr. Arauz and is familiar with him about a BKA versus AKA. Unfortunately, during the evening and early this morning Mr. Arauz noticed that the leg was increasing in size. He decided to come to the [facility] for further evaluation and treatment. Dr. Murray has been consulted for management of this left lower extremity wound. PAST MEDICAL HISTORY: 1. Diabetes mellitus type 2. 2. Peripheral neuropathy. 3. COPD on home oxygen. 4. Primary essential hypertension. 5. Protein-calorie malnutrition. 6. Chronic diabetic foot ulcer. ALLERGIES: See chart. HOME MEDICATIONS: Have not been obtained. SOCIAL HISTORY: He does still live at home with his . His is in very poor health as well. They do currently have home health. He does have a history of smoking. He denies alcohol or illicit drug use. REVIEW OF SYSTEMS: A 10 point review of system was completed and negative, or as mentioned above in the HPI. PHYSICAL EXAMINATION: Vital Signs: Temperature is 98.8 degrees, pulse 56, respirations 23, blood pressure 143/68, he is 100% on 2 L nasal cannula. General: This is an unhealthy appearing 79- year-old male in no acute distress. HEENT: Head is atraumatic, normocephalic. Pupils are equal, round, reactive to light. Cardiovascular: Regular rate and rhythm, although he is a little bradycardic. Pulmonary: Breathing is even nonlabored on 2 L of oxygen. Abdomen: Appears nondistended. Extremities: Left lower extremity exam: He has a 4+ pitting edema throughout the left lower extremity. The leg is very large. He has a weak pedal pulse, but it is palpable. He does have a little bit slower capillary refill. Those wounds look about the same. They do probe to bone. They do have drainage. There is not much surrounding erythema. But there is some erythema to the foot. IMAGING: A left foot x-ray does show worsening osteomyelitis from previous film. Most of that is to the great toe. LABORATORY DATA: White count 7.73, hemoglobin and hematocrit 10.5 and 35.3, platelet count 258,000. BUN and creatinine is 21 and 1.8. ASSESSMENT: Chronic left nonhealing diabetic foot ulcers. PLAN: Again, we have spoken in great detail about a below-knee amputation versus an above-knee amputation. Dr. Murray discussed this in great detail in the office yesterday. We are going to consult Dr. Hussein and get his input. His input will be very valuable in helping decide between a mkxil-mvp-thil amputation and an jfcwm-byj-lsty amputation. Dr. Murray did discuss the risks and benefits of both procedures. Obviously, the risk of doing the below-knee amputation is very poor wound healing with all the swelling and his other comorbidities. I am also not sure how his vascular status is. So, we will talk to him and make a further decision. Mr. Arauz does understand all this. He says at this point, he is ready for a aymik-gpo-kkln or above-the- knee. He says he just wants to do what is best and he is prepared for either way. So, we will get Dr. Hussein's input and make him NPO and we will go from there. Thank you for the consult. Dictated by HERNANDEZ Luke for Jayro Murray MD cc: HERNANDEZ Luke MD [facility]
--- NOTE | 2019-02-05 19:48 | HISTORY AND PHYSICAL ---
CHIEF COMPLAINT: Pain in foot with swelling and irritation. HISTORY OF PRESENT ILLNESS: This is a 78-year-old male with multiple medical problems of CHF, diabetes, and peripheral neuropathy, who has a longstanding foot ulcer on his left foot, one at the 1st MTP joint, one at the lateral aspect of the 5th MTP joint. He was here, admitted in December, with Proteus infection and underwent treatment with Rocephin. He is followed by Dr. Murray and Dr. Hussein. He has been having progressive swelling in his left foot. He has been treated off and on for these issues for the last 2 years. He reports increasing swelling, pain, discharge. No fever. Pain is somewhat compromised because he has neuropathy and decreased sensation. I am not sure if he has been to Wound Care. Apparently, this was cultured on the by Dr. Murray and it grew out Methicillin-resistant Staphylococcus aureus, and I think he may have been initiated on antibiotics yesterday, but it had not improved or he was asked to come back for evaluation, and now he is being admitted. His plain films show destruction pretty much of his pinky toe on the right foot, at least the interphalangeal joint is just eroded completely, consistent with osteomyelitis, and he will be admitted for treatment, although there is some discussion at this point about just plain amputation. His arterial study in December showed 0.69 toe to brachial index on the right, and on the left it was 0.5. His ABIs were not that bad, 1.15 on the right, and the left was 0.98. Not been amenable to CTA because he has renal dysfunction. In any case, patient will be admitted and will have surgical evaluation for treatment of his osteomyelitis versus amputation. PAST MEDICAL HISTORY: 1. CAD. 2. Reported CHF. His last echocardiogram showed EF in 2012 which was 55 to 60. He had an echocardiogram in July 2017 with an EF of 60 to 65, so he has diastolic function at best. 3. Hypertension. 4. Dyslipidemia. 5. Asthma. 6. COPD. 7. Obstructive sleep apnea. 8. Morbid obesity. 9. Hypothyroidism. 10. GERD. PAST SURGICAL HISTORY: 1. TURP. 2. Left knee bursitis. 3. It looks like he had a CABG because he had a MILLS to LAD, it looks like 1 vessel, and that was in 1985. 4. Cholecystectomy. SOCIAL HISTORY: No tobacco or ethanol currently. ALLERGIES: No known drug allergies. FAMILY HISTORY: Positive for CAD in both his parents. MEDICATIONS: 1. Flomax 0.4. 2. Pravastatin 40. 3. BuSpar 10 b.i.d. 4. Celexa 40 daily. 5. Ditropan 5 b.i.d. 6. 70/30, 60 at night, 80 in the morning. 7. Imdur 60 daily. 8. Lasix 40 b.i.d. 9. Lyrica 75 b.i.d. 10. Metoprolol 50 b.i.d. 11. Protonix 40 daily. REVIEW OF SYSTEMS: No weight loss/gain. No syncope, headache. No shortness of breath. No chest pain, palpitations. No nausea, vomiting, diarrhea. PHYSICAL EXAMINATION: VITAL SIGNS: Blood pressure was 143/68, heart rate of 56, respiratory rate of 23, and temperature was 98.8 degrees. CARDIOVASCULAR: Regular rate and rhythm. PULMONARY: Bilateral breath sounds, clear to auscultation. GI: Soft, nontender, and nondistended. Bowel sounds are positive. NEUROLOGIC: Nonfocal. SKIN AND LYMPHATICS: He has peripheral edema, at least 3+, up to his knees. His skin has just diffuse scaling in both lower extremities with pitting edema on the left versus the right. He has about a 3 cm ovoid lesion over his right MTP right on the plantar surface of the toe, with exudate that is brownish in color, and a smaller 2 to 3 cm lesion on the lateral aspect of his 5th toe. LABORATORY DATA: White count 7.7, hemoglobin and hematocrit 10 and 35, platelets of 258,000. Creatinine of 1.8. Urine was clear. ASSESSMENT: This is a 78-year-old gentleman with osteomyelitis of his left 5th toe. He has diminished blood flow based on his toe-brachial indices. Plan will be to admit for treatment and followup. 1. Osteomyelitis, which has progressed. He has been on intravenous antibiotics. He now has an Methicillin resistant Staphylococcus aureus positive culture. He will be placed on antibiotics for that, and we will continue to follow closely. Dr. Murray has been consulted with Dr. Hussein. They may talk about amputation versus just plain debridement. 2. Type 2 diabetes. We will continue blood sugars, sliding scale, and follow. 3. Hypertension. Continue regular medications. 4. Chronic obstructive pulmonary disease, stable on his current medications. 5. We will get Infectious Disease input as well. 6. Disposition. Pending clinical status. We will continue to monitor. cc: Moe Larson MD
[2019-02-06] MEDS: MAXIPIME 1 GM in NS 50 ML IV SCH ×2 (04:00→16:00)
[2019-02-06 07:48] LABS: BASO# 0.05 X1000 (0.0-0.2); BASO% 0.7 % (0.0-0.8); EOS# 0.35 X1000 (0.0-0.7); EOS% 4.7 % (0.0-10.0); HEMATOCRIT 36.2 % (42.0-52.0); HEMOGLOBIN 10.6 g/dL (14.0-18.0); LYMPH# 1.11 X1000 (1.2-3.4); MCH 25.9 PG (27-31); MCHC 29.3 g/dL (33-37); MCV 88.5 FL (81-99); MONO# 0.86 X1000 (0.11-0.59); MONO% 11.6 % (1.7-9.3); MPV 11.9 FL (7.4-10.4); NEUT# 5.02 X1000 (1.4-6.5); PLT 251 X1000 (130-400); RBC 4.09 XMIL (4.7-6.1); RDW 13.8 % (11.5-14.5); WBC 7.39 X1000 (4.8-10.8)
--- NOTE | 2019-02-06 08:14 | GENERAL SURGERY CONSULTATION ---
DATE: 02/06/2019 HISTORY OF PRESENT ILLNESS: Mr. Arauz is a 78-year-old gentleman with diabetes and a neuropathic ulcer left lateral foot that has not responded to outpatient conservative therapy. He presents and the x-rays show increasing osteomyelitis of his phalanx on the left 5th toe. He is admitted because of some swelling in his leg and Dr. Murray has seen him in consultation. PAST MEDICAL HISTORY: His other medical problems include diabetes, hypertension, COPD, degenerative joint disease. PAST SURGICAL HISTORY: His previous surgery includes coronary bypass, cholecystectomy, total knee replacement on the right, spinal surgery, cataract surgery bilaterally, and carpel tunnel repair on the right. FAMILY HISTORY: Pertinent for arthritis, breast cancer, diabetes, hypertension, kidney disease, and thyroid problems. MEDICATIONS: He has a long list and they are noted in the chart. ALLERGIES: He has no known drug allergies. SOCIAL HISTORY: He does drink alcohol socially. He is a former smoker, quit smoking in 1998. He denies illicit drug use. REVIEW OF SYSTEMS: Negative in the 10 subsystems except as noted above in the past history and history of present illness. PHYSICAL EXAMINATION: Vital Signs: He is afebrile. Heart rate 55, blood pressure 163/57, respiratory rate 20. Neck: No cervical adenopathy. Lungs: Bilateral breath sounds. Heart: Regular rate and rhythm. Abdomen: Soft. He is obese. Extremities: He does have posterior tibial pulse present on the left. He has Doppler flow present on the dorsalis pedis position. His left leg is somewhat swollen compared to the right. Ulcerations noted on his plantar aspect. DIAGNOSTIC DATA: His lower extremity arterial study done back in September showed actually quite acceptable arterial waveforms even at the digital level. His left AB index at that time was 0.95. The left total brachial index is 0.58. When I saw him previously, I felt that his foot was salvageable. The recommendation now will be to repeat his lower extremity arterial study to be certain that he still proves to have pulsatile flow in the digital level and if so, I would simply recommend toe amputation with expectations it will heal. I will discuss with Dr. Murray. cc: Jimmy Hussein MD
[2019-02-06 08:35] LABS: CREATININE 1.5 mg/dL (0.7-1.2); POTASSIUM 4.4 mmol/L (3.5-5.1)
[2019-02-06] MEDS: ZYVOX PO SCH ×2 (11:12→20:26)
[2019-02-06] MEDS: ZOFRAN IV PRN ×3 (11:15→22:34)
[2019-02-06] MEDS ORDERED: VANCOMYCIN 1,750 MG in NS 250 ML IV SCH (17:00)
--- NOTE | 2019-02-06 17:02 | INFECTIOUS DISEASE CONSULT REP ---
DATE: 02/06/2019 CONCLUSION: The patient has a worsening left fifth toe osteomyelitis and cellulitis. RECOMMENDATIONS: I agree with treating the patient with cefepime. The dose has been decreased because of the patient's renal failure. The patient does have end-stage renal disease and he is hard of hearing and for these reasons, I am going to discontinue vancomycin and instead, put the patient on Zyvox pending culture results. I think that the patient needs to have some type of surgical procedure to clear the infection in his foot. I doubt that just to giving the patient antibiotics would cure the situation. DISCUSSION: I was unable to get any information from the patient. The information I did obtain was from the computer. He came in the hospital with swelling and pain in his left foot. His x- ray of the foot shows worsening of the fifth toe osteomyelitis. The patient's CBC shows a white count of 7390, hemoglobin 10.6, and platelet count 251,000. Creatinine is 1.8. GFR is 37. Liver function studies are normal. Urinalysis showed red cells but no white cells or bacteria. Blood, and left foot infections are pending. Chest x-ray shows cardiomegaly. PAST MEDICAL HISTORY: Positive for coronary artery disease, congestive heart failure, hypertension, hyperlipidemia, asthma, COPD, obstructive sleep apnea, morbid obesity, hypothyroidism and gastroesophageal reflux disease. PAST SURGICAL HISTORY: Positive for transurethral resection of the prostate, left knee surgery, coronary artery bypass grafting, and cholecystectomy. SOCIAL HISTORY: No history of cigarette smoking or alcohol consumption. ALLERGIES: No known allergies. MEDICATIONS: Taken at home include buspirone, Celexa, Lasix, insulin, Isordil, metoprolol, Ditropan, pantoprazole, pravastatin, Lyrica and Flomax. PHYSICAL EXAMINATION: Vital Signs: Temperature is 97.7 degrees, pulse 55, respirations 20, blood pressure 163/57. The patient is 6 feet tall, weighs 290 pounds. General: This is a morbidly obese, elderly male. He is lethargic. Head/eyes/ears/nose/throat: No drainage noted from the nose or ears. Neck: No meningismus. Lungs: Bilateral wheezes. Cardiovascular: Heart rate was irregular. Abdomen: Soft and apparently not tender. Extremities: The patient has bilateral leg edema. The left foot is erythematous and swollen. There is also a lateral ulcer of the distal left foot. Neurologic: The patient is lethargic. He can open his eyes for a little bit and then he seems to fall back asleep. There is no tremor. He did not respond to verbal stimuli. Integument: No rash noted. Thank you for the consult. cc: Alen Banks MD
[2019-02-06] MEDS: LOPRESSOR PO SCH (20:25)
[2019-02-06] MEDS: FLOMAX PO SCH (20:26)
[2019-02-06] MEDS: BUSPAR PO SCH (20:26)
[2019-02-06] MEDS: PRAVACHOL PO SCH (20:26)
[2019-02-06] MEDS: LYRICA PO SCH (20:26)
[2019-02-06] MEDS: LASIX PO SCH (20:26)
[2019-02-06] MEDS: DITROPAN PO SCH (20:26)
--- NOTE | 2019-02-06 21:06 | ORTHOPAEDICS PROGRESS NOTE ---
DATE: 02/06/2019 SUBJECTIVE DATA: Mr. Arauz is sitting up in his chair. He looks a lot better today. He states he is feeling better. He did talk with Dr. Hussein, and they discussed doing a toe amputation. OBJECTIVE DATA: Left lower extremity exam is currently in a new dressing. That dressing does have some drainage on it already. It looks serosanguineous. He does have decreased sensation to the toes related to his neuropathy. That lower extremity is still very swollen. ASSESSMENT: Chronic left foot diabetic ulcers that are nonhealing. PLAN: Dr. Hussein is planning to do another lower extremity arterial study. Hopefully the plan is to do just a toe amputation. We are hoping we can salvage the leg. We are going to let Dr. Hussein take over. If there is any questions or concerns, we would be happy to see Mr. Arauz again. Dictated by HERNANDEZ Luke for Jayro Murray MD cc: HERNANDEZ Luke MD
--- NOTE | 2019-02-06 21:12 | GENERAL SURGERY PROGRESS NOTE ---
DATE: 02/06/2019 ASSESSMENT AND PLAN: I discussed the situation with Dr. Murray. I have recommended just doing a toe amputation, which I will proceed with tomorrow. I have talked with Mr. Arauz. He understands and agrees. I feel like we should pursue that route rather than go higher at this time. cc: Jimmy Hussein MD
[2019-02-06] MEDS: HUMULIN 70/30 SUBQ SCH (23:13)
[2019-02-07] MEDS: MAXIPIME 1 GM in NS 50 ML IV SCH (05:22)
[2019-02-07 07:23] LABS: BASO# 0.05 X1000 (0.0-0.2); BASO% 0.6 % (0.0-0.8); EOS# 0.31 X1000 (0.0-0.7); HEMATOCRIT 36.8 % (42.0-52.0); HEMOGLOBIN 10.9 g/dL (14.0-18.0); LYMPH# 1.09 X1000 (1.2-3.4); LYMPH% 14.1 % (20.5-51.1); MCH 26.1 PG (27-31); MCHC 29.6 g/dL (33-37); MCV 88.2 FL (81-99); MONO# 0.78 X1000 (0.11-0.59); MONO% 10.1 % (1.7-9.3); MPV 11.7 FL (7.4-10.4); NEUT# 5.51 X1000 (1.4-6.5); NEUT% 71.2 % (42.2-75.2); PLT 251 X1000 (130-400); RBC 4.17 XMIL (4.7-6.1); RDW 13.5 % (11.5-14.5); WBC 7.74 X1000 (4.8-10.8)
[2019-02-07 07:52] LABS: CALCIUM 8.8 mg/dL (8.8-10.2); CREATININE 1.6 mg/dL (0.7-1.2); POTASSIUM 4.6 mmol/L (3.5-5.1)
[2019-02-07] MEDS: LOPRESSOR PO SCH ×2 (09:29→22:10)
[2019-02-07] MEDS ORDERED: DIPRIVAN 1% ONE (10:22)
[2019-02-07] MEDS ORDERED: ROBINUL ONE (10:24)
[2019-02-07] MEDS ORDERED: XYLOCAINE-MPF 2% ONE (10:24)
--- NOTE | 2019-02-07 10:57 | INFECTIOUS DISEASE PROGRESS NO ---
DATE: 02/07/2019 PRESENT ILLNESS: The patient has osteomyelitis and cellulitis of the left foot. MEDICATIONS: The patient is receiving a combination of cefepime and Zyvox. PHYSICAL EXAMINATION: Vital signs: Temperature is 97.7, pulse 64, respirations 20, blood pressure 136/51. General: This is an ill-appearing elderly male. He is in no acute distress. Head, Eyes, Ears, Nose, and Throat: He has decreased hearing. He can see near objects. He does not have any white patches in his mouth. Neck: No pain with movement of his neck. Lungs: Clear to auscultation. Cardiovascular: The patient's heart rate is regular. Abdomen: Soft and nontender. Extremities: The patient's left foot is erythematous and swollen especially distally and laterally. There also are present 2 plantar ulcers. Neurologic: The patient is awake. He can move his extremities. There is no tremor. He has decreased hearing. LAB AND X-RAY: CBC today shows a white count of 7740, hemoglobin 10.9, and platelet count 251,000. Creatinine is 1.6, GFR is 42. The patient's foot wound is growing MRSA. Blood cultures are negative. ASSESSMENT AND PLAN: The patient has cellulitis and osteomyelitis of the patient's foot. I plan to continue Zyvox and stop cefepime. I agree with amputating the patient's little toe. COMORBIDITIES: The patient is elderly. He is morbidly obese. He has COPD, obstructive sleep apnea, gastroesophageal reflux disease, and congestive heart failure. cc: Alen Banks MD MTDKenzie
[2019-02-07] MEDS ORDERED: DUONEB (A & A) INH ONE (11:48)
[2019-02-07] MEDS ORDERED: DUONEB (A & A) ONE ×2 (11:56→14:36)
[2019-02-07] MEDS ORDERED: KETAMINE ONE (12:57)
[2019-02-07] MEDS ORDERED: ZOFRAN ONE (13:12)
[2019-02-07] MEDS ORDERED: NORCO-10 ONE (14:03)
[2019-02-07] MEDS: BUSPAR PO SCH ×2 (15:46→22:04)
[2019-02-07] MEDS: LYRICA PO SCH ×2 (15:46→22:03)
[2019-02-07] MEDS: ZYVOX PO SCH ×2 (15:46→22:03)
[2019-02-07] MEDS: LASIX PO SCH ×2 (15:46→22:04)
[2019-02-07] MEDS: HUMULIN 70/30 SUBQ SCH ×2 (15:47→23:07)
[2019-02-07] MEDS: DITROPAN PO SCH ×2 (15:47→22:04)
[2019-02-07] MEDS: IMDUR PO SCH (15:55)
[2019-02-07] MEDS: PROTONIX PO SCH (15:55)
[2019-02-07] MEDS: CELEXA PO SCH (15:55)
[2019-02-07] MEDS ORDERED: DUONEB (A & A) INH PRN (15:56)
[2019-02-07] MEDS: DUONEB (A & A) INH SCH ×3 (16:31→22:45)
--- NOTE | 2019-02-07 18:18 | OPERATIVE NOTE ---
PROCEDURE DATE: 02/07/2019 PROCEDURE: Amputation left 5th toe through the distal metatarsal. SURGEON: Dr. Hussein. PREOPERATIVE DIAGNOSIS: Chronic neuropathic ulcer with osteomyelitis of the phalanx. POSTOP DIAGNOSIS: Chronic neuropathic ulcer with osteomyelitis of the phalanx. DESCRIPTION OF PROCEDURE: Satisfactory general anesthesia was achieved. The left foot was prepped and draped in a sterile fashion. We made a incision around the base of the left 5th toe. We carried this incision down into the metatarsophalangeal joint and amputated the toe through that. We had to excise some skin and soft tissue to completely remove the neuropathic ulcer. We then used a bone biter, the rongeur to take off the distal metatarsal. The tissue was swollen enough and bulk enough to not allow closure. We irrigated it. There was bleeding arterial vessels that we cauterized so the digital artery was open. After satisfactory hemostasis and copiously irrigated the wound we then packed it with Betadine gauze and surrounded with sterile 4 x 4s and a sterile Kerlix followed by a 6 and a 4 inch Israel. He tolerated it well and was sent to the recovery room in satisfactory condition. cc: Jimmy Hussein MD
[2019-02-07] MEDS: PRAVACHOL PO SCH (22:04)
[2019-02-07] MEDS: FLOMAX PO SCH (22:04)
[2019-02-08] MEDS: DUONEB (A & A) INH SCH ×6 (03:39→23:00)
[2019-02-08] MEDS: PERIDEX MT SCH ×3 (05:09→22:36)
[2019-02-08 07:30] LABS: BASO# 0.03 X1000 (0.0-0.2); BASO% 0.4 % (0.0-0.8); EOS# 0.28 X1000 (0.0-0.7); EOS% 3.6 % (0.0-10.0); HEMOGLOBIN 9.6 g/dL (14.0-18.0); LYMPH# 1.12 X1000 (1.2-3.4); LYMPH% 14.3 % (20.5-51.1); MCH 26.1 PG (27-31); MCHC 29.1 g/dL (33-37); MCV 89.7 FL (81-99); MONO# 0.97 X1000 (0.11-0.59); MONO% 12.4 % (1.7-9.3); MPV 12.1 FL (7.4-10.4); NEUT# 5.41 X1000 (1.4-6.5); NEUT% 69.3 % (42.2-75.2); PLT 234 X1000 (130-400); RBC 3.68 XMIL (4.7-6.1); RDW 13.5 % (11.5-14.5); WBC 7.81 X1000 (4.8-10.8)
[2019-02-08 07:48] LABS: CALCIUM 8.2 mg/dL (8.8-10.2); CREATININE 1.6 mg/dL (0.7-1.2); POTASSIUM 4.3 mmol/L (3.5-5.1)
[2019-02-08] MEDS: DITROPAN PO SCH ×2 (10:28→22:37)
[2019-02-08] MEDS: HUMULIN 70/30 SUBQ SCH ×2 (10:28→21:30)
[2019-02-08] MEDS: ZYVOX PO SCH ×2 (10:30→22:37)
[2019-02-08] MEDS: LYRICA PO SCH ×2 (10:31→23:01)
[2019-02-08] MEDS: PROTONIX PO SCH (10:31)
[2019-02-08] MEDS: CELEXA PO SCH (10:31)
[2019-02-08] MEDS: BUSPAR PO SCH ×2 (10:31→22:36)
[2019-02-08] MEDS: LASIX PO SCH ×2 (10:31→22:37)
[2019-02-08] MEDS: LOPRESSOR PO SCH ×3 (10:31→22:40)
[2019-02-08] MEDS: IMDUR PO SCH (10:31)
--- NOTE | 2019-02-08 13:37 | GENERAL SURGERY PROGRESS NOTE ---
DATE: 02/08/2019 SUBJECTIVE: The patient is doing okay. No acute events overnight. OBJECTIVE: Vital Signs: He is afebrile. Vital signs are stable. General: He is awake, alert, oriented x3. In no acute distress. Extremities: The left foot wound was examined. There is no gross pus. There is some mild edema and erythema of the foot. ASSESSMENT AND PLAN: A 78-year-old male status post left 5th toe amputation with open wound. Continue wet-to-dry dressing changes. cc: Ciaran Radford MD
--- NOTE | 2019-02-08 17:51 | PROGRESS NOTE ---
DATE: 02/08/2019 SUBJECTIVE: Patient has no major complaints. OBJECTIVE: Vital Signs: Blood pressure is 124/57, heart rate 79, respiratory rate 18, temperature 98, 93% on room air. Cardiovascular: Regular rate and rhythm. Pulmonary: Bilateral breath sounds, clear to auscultation. GI: Soft, nontender, nondistended. Bowel sounds are positive. Extremities: His toe seems like it is doing okay. He still has an open ulcer underneath his foot about quarter size but a little bit bigger than that, but it has got good granulation tissue. It is not actively draining. LAB DATA: Today, white count 7, hemoglobin and hematocrit 9 and 33, platelets 234, creatinine at 1.6. PROBLEM LIST: 1. Osteomyelitis with peripheral vascular disease. He is status post amputation, postop day 1, I believe. Seems to be doing okay. He is on antibiotics per Dr. Banks, which I think is Zyvox, at his discretion for duration on that. 2. Type 2 diabetes, stable. Continue regular medications. 3. Hypertension, also stable. Continue regular medications. DISPOSITION: Per surgery. I think if he can get up, we should be able to kind of get him around, but we will see how things look. cc: Moe Larson MD
[2019-02-08] MEDS: PRAVACHOL PO SCH (22:37)
[2019-02-08] MEDS: FLOMAX PO SCH (22:37)
[2019-02-08] MEDS: NORCO-10 PO PRN (23:01)
[2019-02-09] MEDS: DUONEB (A & A) INH SCH ×6 (03:36→22:55)
[2019-02-09 06:44] LABS: BASO# 0.05 X1000 (0.0-0.2); BASO% 0.6 % (0.0-0.8); EOS# 0.36 X1000 (0.0-0.7); EOS% 4.5 % (0.0-10.0); HEMATOCRIT 32.4 % (42.0-52.0); HEMOGLOBIN 9.5 g/dL (14.0-18.0); IMM GRAN# 0.02 X1000 (0.0-0.04); IMM GRAN% 0.3 % (0.0-0.5); LYMPH# 1.59 X1000 (1.2-3.4); LYMPH% 19.9 % (20.5-51.1); MCH 26.2 PG (27-31); MCHC 29.3 g/dL (33-37); MCV 89.3 FL (81-99); MONO# 0.97 X1000 (0.11-0.59); MONO% 12.1 % (1.7-9.3); MPV 11.9 FL (7.4-10.4); NEUT% 62.6 % (42.2-75.2); PLT 231 X1000 (130-400); RBC 3.63 XMIL (4.7-6.1); RDW 13.7 % (11.5-14.5); WBC 7.99 X1000 (4.8-10.8)
[2019-02-09 06:59] LABS: CALCIUM 8.4 mg/dL (8.8-10.2); CREATININE 1.7 mg/dL (0.7-1.2); POTASSIUM 4.4 mmol/L (3.5-5.1)
[2019-02-09] MEDS: CELEXA PO SCH (09:23)
[2019-02-09] MEDS: NORCO-10 PO PRN ×2 (09:23→17:55)
[2019-02-09] MEDS: PROTONIX PO SCH (09:23)
[2019-02-09] MEDS: ZYVOX PO SCH ×2 (09:23→22:23)
[2019-02-09] MEDS: DITROPAN PO SCH ×2 (09:23→22:23)
[2019-02-09] MEDS: IMDUR PO SCH (09:23)
[2019-02-09] MEDS: LYRICA PO SCH (09:23)
[2019-02-09] MEDS: PERIDEX MT SCH ×2 (09:24→22:32)
[2019-02-09] MEDS: LASIX PO SCH ×2 (09:24→22:23)
[2019-02-09] MEDS: BUSPAR PO SCH ×2 (09:24→22:23)
[2019-02-09] MEDS: LOPRESSOR PO SCH ×3 (09:24→22:30)
[2019-02-09] MEDS: HUMULIN 70/30 SUBQ SCH ×2 (09:34→22:24)
--- NOTE | 2019-02-09 17:04 | PROGRESS NOTE ---
DATE: 02/09/2019 SUBJECTIVE: He has been more sleepy today apparently, but no major complaints. He arouses easily, answers questions. OBJECTIVE: Vitals: Blood pressure 118/44, heart rate 55, respiratory rate 24, temperature 97.5 degrees. Cardiovascular: Regular rate and rhythm. Pulmonary: Bilateral breath sounds, clear to auscultation. GI: Soft, nontender, nondistended. Bowel sounds are positive. LABORATORY DATA: White count is 7.9, hemoglobin and hematocrit 9 and 32, platelets 231,000, creatinine 1.7. PROBLEM LIST: 1. Osteomyelitis of the left toe status post amputation. He is doing okay. He is currently on Zyvox per Dr. Banks. We will continue to monitor and wound care. 2. Type 2 diabetes, is stable currently. Controlled on current regimen, which is his home regimen. 3. Hypertension. Continue regular medications. 4. Lethargy. I think he is supposed to be on CPAP, and he has not been getting that at night, so will see how things go. 5. Disposition. Anticipate discharge at the discretion of Surgery, hopefully soon, but we will continue to follow. cc: Moe Larson MD
--- NOTE | 2019-02-09 18:43 | GENERAL SURGERY PROGRESS NOTE ---
DATE: 02/09/2019 SUBJECTIVE: He has had no new events overnight. OBJECTIVE: Vitals: He is afebrile. Vital signs are stable. General: He is awake, alert, oriented x3. No acute distress. Extremities: The left foot wound was examined. It is stable as compared to yesterday. No gross pus. LABORATORY: CBC and metabolic profile reviewed and notable for BUN of 27, creatinine 1.7. ASSESSMENT AND PLAN: A 78-year-old male status post left 5th toe amputation. The wound is open. We are awaiting Dr. Hussein's final assessment and recommendations. The patient may have trouble taking care of this wound at home. We may need to try to arrange for some type of home health. cc: Ciaran Radford MD
[2019-02-09] MEDS: PRAVACHOL PO SCH (22:23)
[2019-02-09] MEDS: FLOMAX PO SCH (22:23)
[2019-02-09] MEDS: HEPARIN SUBQ SCH (22:27)
[2019-02-10] MEDS: DUONEB (A & A) INH SCH ×6 (03:44→23:02)
[2019-02-10 07:29] LABS: BASO# 0.03 X1000 (0.0-0.2); BASO% 0.4 % (0.0-0.8); EOS# 0.35 X1000 (0.0-0.7); EOS% 4.8 % (0.0-10.0); HEMATOCRIT 34.5 % (42.0-52.0); IMM GRAN# 0.02 X1000 (0.0-0.04); IMM GRAN% 0.3 % (0.0-0.5); LYMPH# 0.94 X1000 (1.2-3.4); MCV 89.6 FL (81-99); MONO# 0.87 X1000 (0.11-0.59); MPV 11.8 FL (7.4-10.4); NEUT# 5.04 X1000 (1.4-6.5); NEUT% 69.5 % (42.2-75.2); PLT 233 X1000 (130-400); RBC 3.85 XMIL (4.7-6.1); RDW 13.7 % (11.5-14.5); WBC 7.25 X1000 (4.8-10.8)
[2019-02-10 07:51] LABS: CALCIUM 8.2 mg/dL (8.8-10.2); CREATININE 1.9 mg/dL (0.7-1.2); POTASSIUM 4.5 mmol/L (3.5-5.1)
--- NOTE | 2019-02-10 09:38 | GENERAL SURGERY PROGRESS NOTE ---
DATE: 02/10/2019 Mr. Arauz is sitting up. His wound is inspected. It looks healthy. We will continue with Vashe gauze twice a day. He will ultimately have to be followed in the [facility]. cc: Jimmy Hussein MD
[2019-02-10] MEDS: HEPARIN SUBQ SCH ×2 (11:04→23:38)
[2019-02-10] MEDS: CELEXA PO SCH (11:04)
[2019-02-10] MEDS: PERIDEX MT SCH ×2 (11:04→23:38)
[2019-02-10] MEDS: DITROPAN PO SCH ×2 (11:04→23:34)
[2019-02-10] MEDS: LOPRESSOR PO SCH ×2 (11:05→23:34)
[2019-02-10] MEDS: ZYVOX PO SCH (11:05)
[2019-02-10] MEDS: HUMULIN 70/30 SUBQ SCH ×2 (11:05→23:36)
[2019-02-10] MEDS: PROTONIX PO SCH (11:05)
[2019-02-10] MEDS: LASIX PO SCH ×2 (11:05→23:35)
[2019-02-10] MEDS: IMDUR PO SCH (11:05)
[2019-02-10] MEDS: BUSPAR PO SCH ×2 (11:05→23:35)
--- NOTE | 2019-02-10 19:06 | INFECTIOUS DISEASE PROGRESS NO ---
DATE: 02/10/2019 PRESENT ILLNESS: Mr. Arauz is status post 5th toe amputation through the distal metatarsal done on Sunday for osteomyelitis of that phalanx. He has grown a methicillin- resistant Staph aureus to that toe. MEDICATIONS: He is receiving Zyvox 600 mg by mouth every 12 hours which we will change today. PHYSICAL EXAMINATION: Vital Signs: Temperature is 97.9 degrees, pulse rate 65, respiratory rate 16, blood pressure 137/60, O2 saturation is 97% on 2.5 L nasal cannula. General: This is a chronically ill-appearing, elderly gentleman. He is sitting up on the side of the bed, currently in no acute distress. HEENT: Atraumatic, normocephalic. Oral mucous membranes are pink and moist. Conjunctivae are pink. Neck: Supple. Trachea is midline. Cardiovascular: Heart rate and rhythm are regular. Normal sinus rhythm on the monitor. Respiratory: Lung sounds are clear to auscultation bilaterally. Diminished in the bases. No work of breathing is noted. Integumentary: Skin is warm and dry. There is a dressing in place to the left foot, not removed at this time. Neurologic: He is awake, alert, oriented, and able to move around in the bed independently. LABORATORY AND X-RAY: Today, his white count is 7.25, hemoglobin 10, platelet count 233,000. Creatinine is 1.9, GFR 35. No imaging reports today. ASSESSMENT AND PLAN: Mr. Arauz is doing well status post amputation of his 5th toe on the left foot due to osteomyelitis with methicillin-resistant Staph aureus. Today, we will stop the Zyvox and start him on doxycycline 100 mg by mouth every 12 hours. We suggest continuing the doxycycline for at least 3 days. We will sign off the case today but be available on an as-needed basis. These plans have been discussed with and recommended by Dr. Banks. COMORBIDITIES: For Mr. Arauz include that he is elderly and obese with obstructive sleep apnea, COPD, gastroesophageal reflux disease, and congestive heart failure. Dictated by HERNANDEZ Alvarado for Alen Banks MD cc: Alen Banks MD [facility]
[2019-02-10] MEDS: FLOMAX PO SCH (23:34)
[2019-02-10] MEDS: PRAVACHOL PO SCH (23:35)
[2019-02-11] MEDS: DOXYCYCLINE PO SCH ×2 (00:03→09:59)
[2019-02-11] MEDS: DUONEB (A & A) INH SCH ×4 (03:53→15:32)
[2019-02-11] MEDS: HEPARIN SUBQ SCH (09:59)
[2019-02-11] MEDS: IMDUR PO SCH (09:59)
[2019-02-11] MEDS: PROTONIX PO SCH (09:59)
[2019-02-11] MEDS: LASIX PO SCH (09:59)
[2019-02-11] MEDS: LOPRESSOR PO SCH (09:59)
[2019-02-11] MEDS: CELEXA PO SCH (10:00)
[2019-02-11] MEDS: BUSPAR PO SCH (10:00)
[2019-02-11] MEDS: DITROPAN PO SCH (10:00)
[2019-02-11] MEDS: PERIDEX MT SCH (10:00)
[2019-02-11 10:37] VITALS: BP 159/58
--- NOTE | 2019-02-11 10:41 | GENERAL SURGERY PROGRESS NOTE ---
DATE: 02/11/2019 Mr. Arauz lateral foot wound, his amputation site looks good. It is healthy. It is pink. Swelling in his leg has gone down significantly. I am going to order a wound VAC for his lateral foot wound and ultimately put him in a total contact cast, but I am pleased with his progress. He can certainly go home from my perspective whenever the medical doctors are ready for him from his infection perspective. cc: Jimmy Hussein MD
[2019-02-11] MEDS: HUMULIN 70/30 SUBQ SCH (11:41)
--- NOTE | 2019-02-11 16:09 | DISCHARGE SUMMARY ---
ADMISSION DATE: 02/05/2019 DISCHARGE DATE: 02/11/2019 DISCHARGE DIAGNOSES: 1. Osteomyelitis of the left toe status post amputation. 2. Diabetes mellitus type 2, controlled. 3. Hypertension. 4. Chronic obstructive pulmonary disease, not on any exacerbation. CONSULTATIONS: 1. Dr. Jimmy Hussein from General Surgery. 2. Dr. Alen Banks from Infectious Disease. 3. Dr. Jayro Murray from Orthopedics. PROCEDURES: 1. Chest x-ray done on admission showed mild cardiomegaly. 2. Foot x-ray showed worsening osteomyelitis of the 5th toe. 3. Amputation of the left 5th toe throughout the distal metatarsal performed by Dr. Jimmy Hussein. HOSPITAL COURSE: This is a 78-year-old male with multiple medical problems including CHF, diabetes, and peripheral neuropathy who has a longstanding foot ulcer of the left foot that this patient was being seen for in the wound care. Outpatient it has been isolated MRSA, so oral medication was started, but because of no improvement, this patient was sent to the hospital for further evaluation. Evaluated by Dr. Jimmy Hussein; they decided to perform surgery, in this case, amputation. The patient tolerated the procedure very well. We will continue with antibiotics according to Dr. Banks. Today at the day of discharge, they mentioned that he will need 3 more days of oral antibiotics, and also Dr. Hussein was okay to discharge this patient as well. We are going to consult [facility] for home health 3 times per week, wound care, and also he will go to the wound care clinic in [facility]. The patient is going to be discharged in stable condition. DISCHARGE PHYSICAL EXAMINATION: Vitals: Temperature 98.4 degrees, heart rate 69 respiratory rate 18, blood pressure 159/58. O2 saturation 97% on 2 L nasal cannula. General: This is a 78-year- old male, lying in bed, in no acute distress. Cardiovascular: S1, S2 heard. No murmurs, gallops, or rubs. Regular rate and rhythm. Respiratory: Clear bilaterally to auscultation. No work of breathing or using accessory muscles. Abdomen: Soft, nontender to palpation. Bowel sounds present. No organomegaly. Extremities: No clubbing, cyanosis, or edema. Left lateral foot is covered by dressing. Neurological: Patient alert, oriented x3. Moves 4 extremities. DISCHARGE DISPOSITION: Home to self-care. DISCHARGE MEDICATION: 1. Doxycycline 100 mg 1 tablet p.o. b.i.d. for 5 days. 2. [place] 10 mg 1 tablet p.o. every 4 hours as needed. 3. Lasix 40 mg 1 tablet p.o. twice daily. 4. Atorvastatin 40 mg 1 tablet p.o. at bedtime. 5. Metoprolol 50 mg 1 tablet p.o. b.i.d. 6. Imdur 60 mg 1 tablet p.o. daily. 7. Tamsulosin 0.4 mg 1 tablet p.o. daily. 8. Celexa 40 mg 1 tablet p.o. daily. 9. Humulin 70/30, 60 units at bedtime and 80 units at night. 10. Oxybutynin 5 mg 1 tablet p.o. b.i.d. 11. Pantoprazole 40 mg 1 tablet p.o. daily. 12. Buspirone 10 mg 1 tablet p.o. b.i.d. 13. Lyrica 75 mg 1 tablet p.o. b.i.d. Time discharging this patient is 38 minutes. cc: Wei Monk MD MTDD
== END 2019-02-11 15:39 | disposition home health service (06) | DRG 617 ==
LOC: SUPCPDRO → ED 09:49 → SUATTDRO 15:13 → 4N 15:13
PROVIDERS: ATTEND Internal Medicine

== ENCOUNTER 2019-02-14 12:32 | Inpatient (IN) ==
[~2019-02-14 12:32] MED LIST: D50W SYRINGE IV ONE; D50W SYRINGE ONE
--- NOTE | 2019-02-14 13:15 | Diag Imaging Result Doc PS360 ---
EXAM: CT HEAD W/O CONTRAST HISTORY: headache TECHNIQUE: Images were obtained from the skull base to vertex without IV contrast as per standard protocol. This exam was performed using automated exposure control, adjustment of mA or kV according to patient size, and/or use of iterative reconstruction technique. COMPARISON: None. Extra-axial spaces: Normal. Intracranial hemorrhage: None appreciated. Ventricular system: Normal for age. Cerebral parenchyma: Moderate atrophy. Deep white matter hypodensity likely related to microvascular disease. Probable lacunar infarct left subinsular region. Midline shift: None. Cerebellum: Unremarkable. Brainstem: Unremarkable. Calvarium: Normal. Paranasal sinuses and mastoid air cells: Clear. Visualized orbits: Normal. IMPRESSION: Atrophy and microvascular disease. No acute intracranial abnormality is appreciated. Electronically signed by Marlin Noriega 02/14/2019 1:12 PM
[2019-02-14 13:49] LABS: UR AMPHETAMINES QUAL NONE DETECTED (NONE DETECT); UR BARBITUATES QUAL NONE DETECTED (NONE DETECT); UR BENZODIAZEPIN QUAL NONE DETECTED (NONE DETECT); UR CANNABINOIDS QUAL NONE DETECTED (NONE DETECT); UR COCAINE QUAL NONE DETECTED (NONE DETECT); UR METHADONE QUAL NONE DETECTED (NONE DETECT); UR METHAMPHETAMINE QUAL NONE DETECTED (NONE DETECT); UR OPIATES QUAL PRESUMPTIVE POSITIVE (NONE DETECT); UR OXYCODONE QUAL NONE DETECTED (NONE DETECT); UR PCP QUAL NONE DETECTED (NONE DETECT); UR PROPOXYPHENE QUAL NONE DETECTED (NONE DETECT); UR TCA QUAL NONE DETECTED (NONE DETECT)
--- NOTE | 2019-02-14 13:52 | Diag Imaging Result Doc PS360 ---
EXAM: CT ABDOMEN/PELVIS W/O CONTRAST HISTORY: abd pain TECHNIQUE: This exam was performed using automated exposure control, adjustment of mA or kV according to patient size, and/or use of iterative reconstruction technique. COMPARISON: 01/14/2013. FINDINGS: Lung bases: Unremarkable. Limited evaluation of the unenhanced liver, spleen, pancreas, adrenal glands, kidneys and visualized bowel are unremarkable. There is motion artifact. Kidneys/Ureter/Bladder: Nonspecific bilateral perinephric stranding. 6.5 cm left renal cyst. 2 cm right renal cyst. No urolithiasis or hydronephrosis is appreciated. Retroperitoneum: 2.7 cm aortic ectasia. 2 cm common iliac artery aneurysms. Moderate atherosclerotic calcification. Moderate para-aortic retroperitoneal adenopathy. No pneumoperitoneum is identified. Midline surgical clips. No ascites is identified. Fat-containing left hernia is noted. Appendix appears normal. There is diverticulosis. There is no evidence for diverticulitis.. There is marked degenerative arthropathy lumbar spine. No acute bony abnormality is demonstrated. Impression: Mild para-aortic lymphadenopathy. Incidental findings described above.. Limited evaluation secondary to patient motion. Electronically signed by Marlin Noriega 02/14/2019 1:49 PM
[2019-02-14 13:58] LABS: CALCIUM 9.1 mg/dL (8.8-10.2); CREATININE 1.3 mg/dL (0.7-1.2); POTASSIUM 4.6 mmol/L (3.5-5.1); TOTAL BILIRUBIN 0.5 mg/dL (0.20-1.00); TOTAL PROTEIN 8.1 g/dL (6.3-8.3)
[2019-02-14 14:06] LABS: BASO# 0.01 X1000 (0.0-0.2); BASO% 0.1 % (0.0-0.8); BILIRUBIN URINE NEGATIVE (NEGATIVE); BLOOD URINE 4+ (NEGATIVE); CLARITY CLEAR (CLEAR); COLOR YELLOW; HEMATOCRIT 37.5 % (42.0-52.0); HEMOGLOBIN 11.4 g/dL (14.0-18.0); IMM GRAN# 0.04 X1000 (0.0-0.04); IMM GRAN% 0.3 % (0.0-0.5); KETONE URINE NEGATIVE (NEGATIVE); LEUKOCYTES URINE NEGATIVE (NEGATIVE); LYMPH# 0.67 X1000 (1.2-3.4); MCHC 30.4 g/dL (33-37); MCV 85.6 FL (81-99); MONO# 0.86 X1000 (0.11-0.59); MONO% 6.4 % (1.7-9.3); MPV 10.8 FL (7.4-10.4); NEUT# 11.91 X1000 (1.4-6.5); NEUT% 88.2 % (42.2-75.2); NITRITE URINE NEGATIVE (NEGATIVE); PH URINE 6.5; PLT 304 X1000 (130-400); PROTEIN URINE 2+(100 mg/dL) mg/dL (NEGATIVE); RBC 4.38 XMIL (4.7-6.1); SP GRAVITY URINE 1.005; UROBILINOGEN URINE NORMAL; WBC 13.49 X1000 (4.8-10.8)
[2019-02-14 14:08] LABS: URINE SOURCE CATH
[2019-02-14] MEDS ORDERED: D50W SYRINGE IV ONE ×2 (14:08→20:23)
[2019-02-14 14:26] LABS: INR 1.15; PROTIME 15.3 Seconds (11.0-16.0)
[2019-02-14 14:27] LABS: CK INDEX 1.4 (0.0-2.5); CK-MB 7.06 ng/mL (0.0-5.0)
[2019-02-14 14:44] LABS: BANDS 3 % (0-1); LYMPHS 6 % (21-51); MONO 3 % (1-9); SEGS 88 % (42-75)
[2019-02-14 14:45] LABS: ANISOCYTOSIS OCCASIONAL; MICROCYTOSIS OCCASIONAL
[2019-02-14 15:22] LABS: BE 6.6 mmoll (-3.0-3.0); BLOOD TYPE ARTERIAL; METHB 0.9 % (0.0-1.5); O2(CT) 17.6 mL/dL (15.0-23.0); O2HB 94.9 % (95.0-99.0); PCO2(98.6) 50 mmHg (35-45); PO2(98.6) 98 mmHg (60-100); SAMPLE BLOOD; SAO2 97.4 % (95.0-100.0); THB 13.1 g/dL (11.5-17.4); pH(98.6) 7.42 (7.35-7.45)
[2019-02-14] MEDS ORDERED: NARCAN IV ONE ×2 (15:22→16:49)
--- NOTE | 2019-02-14 15:37 | Diag Imaging Result Doc PS360 ---
MRI BRAIN W/WO CONTRAST - 02/14/2019 INDICATION: unresponsive COMPARISON: Head CT earlier 02/14/2019 FINDINGS: There is no area of restricted diffusion. There is mild cerebral atrophy. There are some minimal cerebral white matter chronic microvascular ischemia. No intracranial mass or hemorrhage. No abnormal contrast enhancement. There may be stenosis of the basilar artery. IMPRESSION: Possible stenosis of the basilar artery. Consider an MR angiogram of the head, which can be done without contrast. Otherwise no acute disease. Electronically signed by Librado Nuñez 02/14/2019 3:35 PM
[2019-02-14 15:51] LABS: ALLEN TEST YES; MODALITY CANNULA
[2019-02-14 16:10] LABS: ACETAMINOPHEN < 1.2 ug/mL (10-30); SALICYLATES < 3.00 mg/dL (3-10)
--- NOTE | 2019-02-14 16:16 | Diag Imaging Result Doc PS360 ---
CHEST-PORTABLE - 02/14/2019 INDICATION: ams COMPARISON: 02/05/2019 FINDINGS: Stable sternotomy wires. There is cardiomegaly and diffuse pulmonary vascular congestion. No infiltrates or definite edema. Lung volumes are moderately low. IMPRESSION: Nonspecific findings. Electronically signed by Librado Nuñez 02/14/2019 4:13 PM
[2019-02-14] MEDS ORDERED: ROCEPHIN 1 GM in NS 50 ML IV ONE (16:30)
--- NOTE | 2019-02-14 16:31 | PROVIDER DOCUMENTATION ---
This chart was entered by Macrina Humphreys Scribe, acting as scribe for Nilesh Rodriguez MD. HPI-General Adult - General Chief Complaint: Low Blood Sugar Stated Complaint: low blood sugar Time Seen by Provider: 02/14/19 12:27 Source: patient, family (), EMS (first response) Unable to obtain history due to:: altered Allergies/Adverse Reactions: Patient Allergies Allergy/AdvReac Type Severity Reaction Status Date / Time No Known Allergies Allergy Verified 02/14/19 13:14 Home Medications: Home Medication List Medication Instructions Recorded Confirmed Last Taken Type Furosemide [Lasix] 40 mg PO BID 08/30/12 02/05/19 02/08/18 History Isosorbide Mononitrate E.r. [Imdur] 60 mg PO DAILY 03/28/15 02/05/19 02/08/18 History Metoprolol Tartrate 50 mg PO BID 03/28/15 02/05/19 02/08/18 History Pravastatin Sodium 40 mg PO QHS 03/28/15 02/05/19 02/07/18 History Citalopram [Celexa] 40 mg PO DAILY 03/06/17 02/05/19 02/07/18 History Tamsulosin [Flomax] 0.4 mg PO QHS 03/06/17 02/05/19 02/07/18 History Insulin Humulin 70/30 [Humulin 60 unit SUBQ QPM 04/24/17 02/05/19 02/07/18 History 70/30] Insulin Humulin 70/30 [Humulin 80 units SQ QAM 04/24/17 02/05/19 02/08/18 History 70/30] Oxybutynin [Ditropan] 5 mg PO BID 04/24/17 02/05/19 02/08/18 History Pantoprazole Sodium 40 mg PO DAILY 07/20/17 02/05/19 02/08/18 History Buspirone HCl 10 mg PO BID 01/03/19 02/05/19 Unknown History Pregabalin [Lyrica] 75 mg PO BID 01/03/19 02/05/19 Unknown History Doxycycline 100 mg PO BID #10 tab 02/11/19 Unknown Rx Hydrocodone/APAP 10 mg/325 mg 1 tab PO Q4H PRN PRN #30 tab 02/11/19 Unknown Rx [[place]-10] - History of Present Illness -Gen Adult Nature of Presenting Problems: unknown age male went unresponsive with family witnessed PRENATAL NURSE. when ems AOS pt had BGL 38 was given D10 and BGL 211. pt remains unresponsive and has what appears to be vomit on his mouth and face. pt continues to be unresponsive is at bedside with caregiver and sts pt had an episode of low bllood sugar yesterday and has not been acting himself since. went to bed last night and when she woke this am she noted he was in the bed but feet were still on the floor. she left him sleeping and checked on him x2 more times and pt had not moved or changed. at 1130am she tried to wake him and could not. she noticed vomit on his face and called 911. pt did have sx last sunday one week from today to remove his 5th digit on foot and was released to come home on sunday of this week. pt was given some pain medication but sts he has not used it since co chacha home. dr rodriguez is at bedside and pt is unchanged Location of Pain/Injury: reports: none Pain Radiation: reports: no radiation Severity: reports: severe Onset/Duration: reports: just prior to arrival Timing: reports: still present, constant Context/Activities at Onset: reports: light activity (was sitting with family with onset) Modifying Factors: improves with: nothing Similar Symptoms Previously?: Yes (hx of DM) Recently seen or treated by another doctor?: No - Diabetes Related Context Context: reports: low blood sugar, unresponsive Review of Systems - Adult - REVIEW OF SYSTEMS - ADULT ROS:: unobtainable per condition Constitutional: reports: no symptoms reported Eyes: reports: no symptoms reported Ears, Nose, Mouth & Throat: reports: no symptoms reported Cardiovascular: reports: no symptoms reported Respiratory: reports: no symptoms reported Gastrointestinal: reports: no symptoms reported Genitourinary: reports: no symptoms reported Musculoskeletal: reports: no symptoms reported Integumentary: reports: no symptoms reported Neurological: reports: no symptoms reported Psychiatric: reports: no symptoms reported Endocrine: reports: no symptoms reported Hematologic/Lymphatic: reports: no symptoms reported Allergic/Immunologic: reports: no symptoms reported All Other Systems: Reviewed and Negative Past History - Adult - PAST MEDICAL HISTORY-ADULT Review of Records: reports: Old Records Reviewed, Nursing Assessment Review, Medications Reviewed, Social history reviewed & non-contributory. Major Childhood Illnesses: reports: denies history Cardiovascular: reports: CAD, HTN Respiratory: reports: COPD, pneumonia Gastrointestinal: reports: denies history Genitourinary: reports: denies history Musculoskeletal: reports: denies history Hand Dominance: Right Handed Neurological: reports: denies history Endocrine/Immune: reports: Diabetes Diabetes Type: Type 2 Diabetes controlled by:: Insulin Dependent Other Conditions: reports: denies history - PRIOR SURGERIES/PROCEDURES Surgical/Procedure History: reports: recent surgery (had 5th toe removed 1 week past from today), CABG, cholecystectomy, orthopedic (extremity), back/neck - IMMUNIZATION STATUS Childhood Immunizations: See Nurse Assessment Flu Vaccine: See Nurse Assessment - FAMILY HISTORY Family History: reviewed, not pertinent - SOCIAL HISTORY Smoking: quit greater than 1 year Substance Use: alcohol Alcohol Use Frequency: occasionally Number of drinks per typical drinking period:: 3-4 drinks Living Situation: family Physical Exam-General - PHYSICAL EXAM-ADULT Initial Vital Signs Reviewed: Yes - CONSTITUTIONAL General Appearance: obese, obtunded. negative: appears well (ill appearing), alert - EYES Eyes: other (pin point pupils) - HEAD, EARS, NOSE, MOUTH & THROAT HENMT: other (looks to have white colored substance possible vomit around his mouth). negative: moist mucous membranes (dry) - NECK Neck: normal inspection - RESPIRATORY Respiratory: other (rigid) - CARDIOVASCULAR Cardiovascular: normal peripheral pulses, regular rate, rhythm - CHEST (BREASTS) Chest/Breast: deferred - GASTROINTESTINAL (ABDOMEN) Abdominal Exam: rigid - GENITOURINARY Male Genitalia: deferred Rectal Exam: deferred Hemoccult Exam: deferred - MUSCULOSKELETAL Back Exam: other (pt is lying on back and unable to do exam due to urgency) - SKIN Integumentary: pallor - PSYCHIATRIC Psych/Mental Status: other (unresponsive) Progress - PLAN OF CARE/RESULTS Progress/Plan/Lab Results: Vital Signs - 8 hr 02/14/19 12:21 Pulse Rate 82 Respiratory Rate 17 Blood Pressure 177/87 O2 Sat by Pulse Oximetry 100 Result Diagrams: 02/14/19 13:00 02/14/19 13:00 - REASSESSMENT Reassessment #1 Time Reassessed: 15:36 Status: unchanged (dr rodriguez at bedside) Reassessment #2 Time Reassessed: 15:43 Status: unchanged (dr rodriguez at [facility]) Reassessment #4 Time Reassessed: 16:12 Status: improving (narcan given and pt is moaning and becoming more alert) - EKG 1 Time of EKG reading by physician:: 12:28 EKG Read and Signed by:: Nilesh Rodriguez EKG Interpretation (*Must complete 3 of following elements*): Abnormal Rate: 80 Rhythm: sinus rhythm with 1st degree [place]: normal QRS: RBB MS Interval: normal ST Wave: normal - CT/MRI 1 CT Study: Abdomen, Pelvis Impression: See EMR Report (EXAM: CT ABDOMEN/PELVIS W/O CONTRAST HISTORY: abd pain TECHNIQUE: This exam was performed using automated exposure control, adjustment of mA or kV according to patient size, and/or use of iterative reconstruction technique. COMPARISON: 01/14/2013. FINDINGS: Lung bases: Unremarkable. Limited evaluation of the unenhanced liver, spleen, pancreas, adrenal glands, kidneys and visualized bowel are unremarkable. There is motion artifact. Kidneys/Ureter/Bladder: Nonspecific bilateral perinephric stranding. 6.5 cm left renal cyst. 2 cm right renal cyst. No urolithiasis or hydronephrosis is appreciated. Retroperitoneum: 2.7 cm aortic ectasia. 2 cm common iliac artery aneurysms. Moderate atherosclerotic calcification. Moderate para-aortic retroperitoneal adenopathy. No pneumoperitoneum is identified. Midline surgical clips. No ascites is identified. Fat-containing left hernia is noted. Appendix appears normal. There is diverticulosis. There is no evidence for diverticulitis.. There is marked degenerative arthropathy lumbar spine. No acute bony abnormality is demonstrated. Impression: Mild para-aortic lymphadenopathy. Incidental findings described above.. Limited evaluation secondary to patient motion. Electronically signed by Marlin Noriega 02/14/2019 1:49 PM 02/14/19 1341 Interpreting Physician: Marlin Noriega MD Dictated Date/Time: 02/14/19 1331 cc: Abi Hoover;) 2 CT Study: Head Impression: See EMR Report ( EXAM: CT HEAD W/O CONTRAST HISTORY: headache TECHNIQUE: Images were obtained from the skull base to vertex without IV contrast as per standard protocol. This exam was performed using automated exposure control, adjustment of mA or kV according to patient size, and/or use of iterative reconstruction technique. COMPARISON: None. Extra-axial spaces: Normal. Intracranial hemorrhage: None appreciated. Ventricular system: Normal for age. Cerebral parenchyma: Moderate atrophy. Deep white matter hypodensity likely related to microvascular disease. Probable lacunar infarct left subinsular region. Midline shift: None. Cerebellum: Unremarkable. Brainstem: Unremarkable. Calvarium: Normal. Paranasal sinuses and mastoid air cells: Clear. Visualized orbits: Normal. IMPRESSION: Atrophy and microv ascular disease. No acute intracranial abnormality is appreciated. Electronically signed by Marlin Noriega 02/14/2019 1:12 PM 02/14/19 1312 Interpreting Physician: Marlin Noriega MD Dictated Date/Time: 02/14/19 1311 cc: Nilesh Rodriguez MD;) 3 MRI Study: Brain Impression: See EMR Report (MRI BRAIN W/WO CONTRAST - 02/14/2019 INDICATION: unresponsive COMPARISON: Head CT earlier 02/14/2019 FINDINGS: There is no area of restricted diffusion. There is mild cerebral atrophy. There are some minimal cerebral white matter chronic microvascular ischemia. No intracranial mass or hemorrhage. No abnormal contrast enhancement. There may be stenosis of the basilar artery. IMPRESSION: Possible stenosis of the basilar artery. C onsider an MR angiogram of the head, which can be done without contrast. Otherwise no acute disease. Electronically signed by Librado Nuñez 02/14/2019 3:35 PM 02/14/19 1535 Interpreting Physician: Librado Nuñez MD Dictated Date/Time: 02/14/19 1524 cc: Nilesh Rodriguez MD; None,PCP) - CONSULTS/PCP/HOSPITALIST Notification #1 *Consult/PCP/Hospitalist*: hospiatlist dr dahl Time Discussed: 16:11 Consult Disposition: Admit Departure - Departure Date of Disposition Decision: 02/14/19 Time of Disposition Decision: 16:23 DIAGNOSIS: Altered mental status, Type 2 diabetes mellitus with hyperglycemia, with long- term current use of insulin Disposition: ADMITTED INPATIENT 09 Certified Medical Emergency: Emergent Condition: Stable Referrals and Follow-Ups: None,PCP [Primary Care Provider] - - Critical Care Note This patient required my direct & personal management of CC.: Yes Total Time (mins): 48 Critical Care Statement: This patient required my direct personal management to treat or rule out processes, the absence of which, could potentiallly result in sudden, clinically significant life or limb threatening deterioration. Attestation - Physician/ KATHRYN Attestation Patient care was provided by Advanced Practice Provider:: No The physician spent face to face time with patient:: Yes Advanced Practice Provider documentation review:: Supervising physician onsite and consulted in the evaluation and care of this patient. The physician did have a face to face encounter with the patient. This chart was documented by the indicated scribe, (Macrina Humphreys Scribe) and accurately reflects the services I performed and decisions made by me, Nilesh Rodriguez MD, as attested by the provider's signature.
[2019-02-14] MEDS: ZOSYN 3.375 GM in NS 50 ML IV SCH ×2 (16:54→22:44)
--- NOTE | 2019-02-14 18:14 | EKG Report ---
Test Performed on : 02/14/2019 12:28:00 PM Test Reason : unresp blood sugar Blood Pressure : / mmHG Vent. Rate : 080 BPM Atrial Rate : 080 BPM P-R Int : 282 ms QRS Dur : 146 ms QT Int : 442 ms P-R-T Axes : 082 002 052 degrees QTc Int : 509 ms Sinus rhythm. with 1st degree AV block. Right bundle branch block Abnormal ECG No previous ECGs available Unconfirmed Result
[2019-02-14] MEDS: APRESOLINE IV PRN (20:38)
[2019-02-15] MEDS: APRESOLINE IV PRN ×3 (01:54→22:26)
[2019-02-15] MEDS: ZOSYN 3.375 GM in NS 50 ML IV SCH ×3 (06:00→17:53)
[2019-02-15] MEDS ORDERED: DUONEB (A & A) ONE (08:32)
[2019-02-15] MEDS ORDERED: DUONEB (A & A) INH PRN ×2 (08:47→14:56)
[2019-02-15] MEDS ORDERED: SOLU-MEDROL IV ONE (08:48)
[2019-02-15] MEDS ORDERED: NS 1,000 ML IV SCH ×2 (09:00→15:00)
[2019-02-15] MEDS ORDERED: VANCOMYCIN IV PER PHARMACY MISC SCH (09:00)
[2019-02-15 09:24] LABS: BE 7.4 mmoll (-3.0-3.0); BLOOD TYPE ARTERIAL; HCO3-(ACT) 30.7 mmoll (20.0-26.0); METHB 0.7 % (0.0-1.5); O2(CT) 17.1 mL/dL (15.0-23.0); O2HB 95.3 % (95.0-99.0); PCO2(98.6) 44 mmHg (35-45); PO2(98.6) 100 mmHg (60-100); SAMPLE BLOOD; SAO2 97.3 % (95.0-100.0); THB 12.7 g/dL (11.5-17.4); pH(98.6) 7.47 (7.35-7.45)
[2019-02-15 09:26] LABS: ALLEN TEST YES; MODALITY CANNULA
[2019-02-15] MEDS ORDERED: LOPRESSOR IV SCH (09:30)
[2019-02-15] MEDS ORDERED: OFIRMEV 1000 MG/ISOTONIC SOLN 1,000 MG/100 ML BOTTLE IV PRN ×2 (09:35→14:56)
[2019-02-15] MEDS ORDERED: VANCOMYCIN 2,000 MG in NS 500 ML IV SCH (10:00)
[2019-02-15] MEDS ORDERED: DUONEB (A & A) INH SCH (11:30)
--- NOTE | 2019-02-15 12:47 | PROGRESS NOTE ---
DATE: 02/15/2019 SUBJECTIVE: Patient not quite as alert this morning as he was last night. Last night, he certainly was not alert, but he would moan at times and would stimulate to noxious stimuli. PHYSICAL EXAMINATION: Vital Signs: Reviewed. He is afebrile. Blood pressure is stable. General: As noted patient does not answer questions nor follow commands. Does appear to be in more respiratory distress this morning than he was last night. Making significant rhonchorous air sounds. Decreased air movement bilaterally. Abdomen: Soft. Positive bowel sounds. Cardiovascular: Regular rate. Extremities: No edema. His left foot wound is bandaged, clean, dry, and intact with no current drainage. Culture is pending. ASSESSMENT: 1. Acute metabolic encephalopathy. 2. Diabetes. 3. Peripheral vascular disease. 4. Recent left 5th digit amputation. 5. Hypertension. PLAN: The patient certainly is guarded condition. Unclear as to the etiology of his confusion and disorientation. We are going to continue to follow. We will transfer him to [facility] and ask Infectious Disease to evaluate. We will get wound surgery reinvolved. Continue to monitor his blood sugars which are stable while he has been in the hospital. Continue antibiotics, treated for sepsis and will follow. cc: Eduard Carballo MD
--- NOTE | 2019-02-15 14:42 | HISTORY AND PHYSICAL ---
CHIEF COMPLAINT: Altered mental status. HISTORY OF PRESENT ILLNESS: The patient is an elderly male who was just admitted to [facility] and had surgical intervention on infected left 5th digit. He was discharged home. Apparently, he had an episode of low blood sugar at home and has not been acting himself since. went to bed and noted that when she went to sleep he was half on the bed and have off with his feet hanging up beside the bed on the floor. He was checked on several hours later and was still in the same position, still disoriented confused and therefore they called the ambulance. Upon arrival to the ER, his blood sugars are normal. His vital signs are stable. He is disoriented. Does not wake up. Does not answer questions does not follow commands. He was given Narcan in the emergency room and has some minimal relief. He did start grunting, but is still not able to answer any questions nor follow commands. REVIEW OF SYSTEMS: Unobtainable from Mr. Arauz. Family denies any fevers, denies any knowledge of cough, congestion, GI or issues. PAST MEDICAL HISTORY: Known coronary artery disease, hypertension, COPD, pneumonia, diabetes, diabetic neuropathy and peripheral vascular disease. PAST SURGICAL HISTORY: Surgical history recently had a 5th toe removed in the past week. He has had a CABG, cholecystectomy. FAMILY HISTORY: Noncontributory. SOCIAL HISTORY: The patient has a longstanding history of smoking, stopped approximately over a year ago. Drinks alcohol occasionally typically several times a week, 4 drinks at a time. PHYSICAL: Vital Signs: He is afebrile pulse 82, respiratory 17, BP 177/87, sat 100% on 2 L. General: Patient is somewhat obtunded. Does not answer questions nor follow commands. He does currently moan to painful stimuli. HEENT: Normocephalic. Neck: Supple. Cardiovascular: Regular rate. Chest: Rhonchorous air sounds. No wheezing. No crackles. Poor air movement but equal bilaterally. Abdomen: Soft, obese. Extremities: He has trace edema in his lower extremities. His left foot bandage is dirty, has some mild serosanguineous drainage. No pus. Minimal surrounding erythema. He does have an open wound from his most recent amputation of his left 5th digit and what appears to be the metacarpal head. Neurologic: Patient as noted is obtunded. He does not answer questions, does have some whitish colored sputum or emesis in his mouth. He is unresponsive to verbal stimuli. He will grunt to noxious stimuli. LABORATORIES: WBCs 13. BUN 28, creatinine 1.3. ASSESSMENT: 1. Acute metabolic encephalopathy of undetermined origin. 2. Type 2 diabetes with recent hypoglycemia. 3. 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 4. Leukocytosis. PLAN: We are going to place the patient in the hospital ICU, place him on vancomycin and Zosyn. We will culture his wound. He has had a CT MRI which both were effectively negative of his brain. He was given Narcan in the ER without much relief. Monitor his vitals and will follow. cc: Eduard Carballo MD
[2019-02-15] MEDS: DUONEB (A & A) INH SCH ×3 (16:12→22:59)
[2019-02-15] MEDS ORDERED: SOLU-MEDROL IV SCH (17:00)
[2019-02-15] MEDS: SOLU-MEDROL IV SCH (17:45)
[2019-02-15] MEDS: CLINIMIX E 4.25%-5% SOLUTION 1,000 ML IV SCH (17:51)
[2019-02-15] MEDS: NS 1,000 ML IV SCH (17:52)
[2019-02-15] MEDS: HUMALOG SUBQ SCH ×2 (17:52→20:22)
--- NOTE | 2019-02-15 19:26 | PULMONOLOGY CONSULTATION ---
DATE: 02/15/2019 REQUESTING CLINICIAN: Dr. Carballo. REASON FOR CONSULTATION: Respiratory failure and altered mental status. HISTORY OF PRESENT ILLNESS: Mr. Arauz is a 78-year-old white male with multiple medical problems to be outlined below who was discharged from this hospital 02/11/2019 following a 6 day course associated with osteomyelitis requiring amputation of the left 5th toe throughout to the distal metatarsal. The patient's son reports that he has had some difficulty with nausea and vomiting since discharge which he attributed to the antibiotics. The patient went to bed evening and likely got up and ate something in the middle of the night. He did not get out of bed in the morning and the family felt that he had slept poorly so the did not bother him. He was scheduled for a doctor's appointment and he was unarousable when they went to check on him to get ready for the doctor's appointment. EMS was called and upon arrival his blood glucose was 38. He did not improve with correction of his hypoglycemia. He did have evidence of emesis on his mouth and face. The patient was transferred to this hospital for additional evaluation and treatment. He did undergo a CT scan of the head, which revealed atrophy and microvascular disease but no acute intracranial abnormality. 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 PAST MEDICAL HISTORY: 1. COPD. Nonsmoker for approximately 1 year by report. 2. History of heart failure with normal ejection fraction. 3. Hypertension. 4. Dyslipidemia. 5. Obstructive sleep apnea. 6. Morbid obesity. 7. Hypothyroidism. 8. History of osteomyelitis as per above. 9. Gastroesophageal reflux disease. 10. History of coronary artery bypass grafting. 11. Status post cholecystectomy. SOCIAL HISTORY: Prior tobacco use but none for approximately 1 year by old report. No alcohol use. REVIEW OF SYSTEMS: Cannot be obtained. PHYSICAL EXAMINATION: Reveals an obtunded white male who responds to painful stimuli. He will intermittently tract the examiner but he does appear to intermittently engage the examiner but inconsistently. On exam, he does appear to intermittently obstruct. Heart rate 101, blood pressure 176/72, respiratory rate 21, oxygen saturation 97%.HEENT: Pupils are equal and reactive. There may be some left to right nystagmus. Oropharynx appears dry. Neck: Supple without signs of meningismus. Chest: Reveals prolonged expiratory phase with shallow lung volumes and pulmonary vascular congestion. Abdomen: Obese and soft. Extremities: Reveals prior surgery on the left foot. LABORATORIES: Arterial blood gas on nasal cannula reveals a pH 7.47, pCO2 of 44, pO2 of 100 with a AA gradient of 102. White blood count 13.49, hemoglobin 11.4, platelet count 304,000. Sodium 141, potassium 4.6, chloride 100, bicarbonate 29, BUN 28, creatinine 1.3. CT scan as per HPI. IMPRESSION: A 78-year-old with 1. Hypoxemic respiratory failure. 2. Fevers. 3. Altered mental status with encephalopathy. 4. Chronic obstructive pulmonary disease. 5. Acute hypoxemic respiratory failure. 6. Obstructive sleep apnea. DISCUSSION: A 78-year-old with problems outlined above. MRI raises possibility of basilar artery stenosis but with his history, I suspect that he sustained a significant hypoglycemic event leading to a hypoglycemic induced encephalopathy. The duration and severity of the hypoglycemia will determine the overall prognosis. RECOMMENDATIONS: 1. BiPAP as needed for obstructive sleep apnea. 2. Oxygen for hypoxemic respiratory failure. 3. Agree with current antibiotic regimen. 4. Check a plain x-ray of the foot given recent surgical procedure. 5. Continue bronchodilators. 6. Continue ICU monitoring. Patient's prognosis is guarded. cc: Royer Lott MD
--- NOTE | 2019-02-15 19:51 | Diag Imaging Result Doc PS360 ---
EXAM: FOOT 2 VIEWS LEFT - 02/15/2019 HISTORY: leukocytosis, recent surgery TECHNIQUE: Portable left foot two views COMPARISON: 02/05/2019 FINDINGS: There are postsurgical changes of interval resection of the fifth toe and distal fifth metatarsal. There are no acute-appearing erosive or destructive changes identified. There is no fracture or dislocation identified. IMPRESSION: Status post interval resection of fifth toe and distal fifth metatarsal. No indication of osteomyelitis. Please note that early osteomyelitis can be radiographically occult. Electronically signed by Dc Lujan 02/15/2019 7:48 PM
[2019-02-15] MEDS: LOPRESSOR IV SCH (20:22)
[2019-02-15] MEDS ORDERED: HUMALOG SUBQ SCH (21:00)
[2019-02-16] MEDS: HUMALOG SUBQ SCH ×8 (00:45→20:15)
[2019-02-16] MEDS: ZOSYN 3.375 GM in NS 50 ML IV SCH ×2 (00:46→05:11)
[2019-02-16] MEDS: NS 1,000 ML IV SCH ×2 (02:30→12:36)
[2019-02-16] MEDS: DUONEB (A & A) INH SCH ×6 (03:56→23:35)
[2019-02-16] MEDS: APRESOLINE IV PRN ×4 (04:16→21:01)
[2019-02-16] MEDS: SOLU-MEDROL IV SCH ×2 (04:26→17:35)
[2019-02-16 06:31] LABS: BASO# 0.01 X1000 (0.0-0.2); BASO% 0.1 % (0.0-0.8); EOS# 0.01 X1000 (0.0-0.7); EOS% 0.1 % (0.0-10.0); HEMATOCRIT 40.9 % (42.0-52.0); HEMOGLOBIN 12.4 g/dL (14.0-18.0); IMM GRAN# 0.05 X1000 (0.0-0.04); IMM GRAN% 0.3 % (0.0-0.5); LYMPH# 0.98 X1000 (1.2-3.4); LYMPH% 6.1 % (20.5-51.1); MCH 25.8 PG (27-31); MCHC 30.3 g/dL (33-37); MCV 85.2 FL (81-99); MONO# 1.31 X1000 (0.11-0.59); MONO% 8.2 % (1.7-9.3); NEUT# 13.68 X1000 (1.4-6.5); NEUT% 85.2 % (42.2-75.2); PLT 289 X1000 (130-400); RDW 14.6 % (11.5-14.5); WBC 16.04 X1000 (4.8-10.8)
[2019-02-16 06:49] LABS: ALB/GLOB RATIO 0.7; ALBUMIN 3.1 g/dL (3.5-5.0); CREATININE 1.4 mg/dL (0.7-1.2); POTASSIUM 4.5 mmol/L (3.5-5.1); TOTAL BILIRUBIN 0.6 mg/dL (0.20-1.00); TOTAL PROTEIN 7.5 g/dL (6.3-8.3)
--- NOTE | 2019-02-16 08:32 | PROGRESS NOTE ---
DATE: 02/16/2019 SUBJECTIVE: This morning, I have seen Mr. Arauz in the ICU. No family member is at the bedside at the time of the encounter. Mr. Arauz, at this point, is not able to give any interim history. Per documentation, Mr. Arauz was transferred from [facility] yesterday. He presented over there on 02/14/2019, was seen at about 12:27 in the afternoon. Per the documentation, he was not able to give any history, even at the time he presented with EMS. Apparently, when EMS arrived, his blood glucose was 38. He was given D10, and the blood glucose went up to 211. The patient remained unresponsive, even after he was given the amp of D10, and the improvement in the glucose. Apparently, from the documentation, the seems to suggest that the patient had glucose issues the day before, and was not acting himself, and that the night prior to arrival, when the woke up, she saw the patient on the bed with feet still on the floor. She did check on him about twice. However, at about 11:30 in the morning of presentation, the patient continued to be remarkably unresponsive, so 911 was called. The patient was brought into the hospital. It therefore seems to suggest that Mr. Arauz was probably hypoglycemic for over more than 24 hours before he was seen by EMS. Mr. Arauz was admitted to [facility], was seen by the Hospitalist Services over there on 02/14/2019, was being treated for acute metabolic encephalopathy of undetermined origin, was started on broad-spectrum antibiotics, and an MRI of the brain did show possible stenosis of the basilar artery. However, everything else was unremarkable on the CT scan. At the time, the documentation seems to suggest that Mr. Arauz was still unresponsive. Mr. Arauz was again seen yesterday by the Hospitalist Team. The subjective part makes mention that the patient is not quite as alert this morning as he was last night. I take it the patient's mentation continued to get worse. He was subsequently transferred to [facility] for higher level of care, to have Infectious Disease, Pulmonary, and Neurology see him. This morning, Mr. Arauz continues to be very unresponsive. OBJECTIVE: Current Vital Signs: Blood pressure is 199/92, pulse is 114, respirations 16, temperature is 99.7 degrees. Of note, Mr. Arauz has been running temperatures every now and then. His T-max is 101.5 degrees yesterday at 0800. General: Mr. Arauz is a 78-year-old male. He is in bed. He is currently on the BiPAP. HEENT: Mucosa is pink and moist. Anicteric. Acyanotic. Neck: Supple. Chest: Air entry is bilaterally reduced. There are some audible bilateral rhonchi and wheezing in both inspiration and expiration. There seems to be mildly prolonged expiratory phase of respiration. Cardiovascular: Tachycardic, but no murmurs, no rubs, no gallops. GI: Abdomen is soft. It is not tender. There is some old scar on the abdominal wall. Extremities: No pedal edema. GEOLOGY TECHNICIAN: The patient is unresponsive, even to extreme painful stimulation. He will forcefully extend both upper extremities, consistent with possible decerebration. Mr. Arauz is rigid everywhere. Even with extreme force, we cannot bend any of his lower extremities. Babinski seems to be slightly positive in the left lower extremity. The patient also has ulceration under the big left toe. The left fifth toe is surgically amputated. LABORATORY DATA: WBC is 16.04, hemoglobin is 12.4, platelet count of 289,000. Chemistry is also reviewed. Creatinine is 1.4, which is the patient's baseline. Glucose this morning is 333, and the patient has actually been normoglycemic to hyperglycemic throughout the hospital course, yet he has not responded. IMAGING STUDIES: 1. An initial CT scan was done on 02/14/2019 when he presented. It showed atrophy and microvascular disease. No acute intracranial abnormality. 2. A CT scan of the abdomen and pelvis show mild periaortic lymphadenopathy. 3. 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 4. A chest x-ray shows nonspecific findings. 5. An x-ray of the foot shows status post resection of the fifth toe and distal fifth metatarsal. No indication of osteo. MEDICATIONS: Review of the patient's medications has been done. The patient's home medications have also been done. Of note, Mr. Arauz was on Celexa, buspirone, and pregabalin, all of which combined could potentially cause serotonin syndrome. ASSESSMENT: 1. Protracted unresponsiveness, presumably due to prolonged hypoglycemic-induced encephalopathy. However, I think other possible etiologies need to be evaluated, including: a)- A nonconvulsive seizure. For that, an electroencephalogram has been ordered. Neurology has been consulted. b)- Possible infectious etiology. For that, Infectious Disease will be consulted. The patient is on broad-spectrum intravenous antibiotics. I have changed his Zosyn to cefepime, and I have also added ampicillin for meningitis coverage in the elderly. We will potentially pursue lumbar puncture pending recommendations from Infectious Disease and Neurology. c)- Possible serotonin syndrome. Mr. Arauz was on Celexa, buspirone, and gabapentin. Physical exam shows that he is rigid. He is hypertensive, tachycardic, he is febrile. I think it is plausible to consider this diagnosis after central nervous system stroke or organic pathology has been ruled out. We are going to get a CTA of the neck and brain to rule out any organic disease that was not picked up on the initial imaging studies. 3. Acute on chronic kidney failure. Noted. 4. Chronic hypoxemic respiratory acidosis. 5. Bronchospasm, most likely due to underlying chronic obstructive pulmonary disease exacerbation. The patient is on bilevel positive airway pressure, antimicrobial therapy, steroids, and bronchodilation. General prognosis is extremely guarded. cc: Riky Plunkett MD MTDD
[2019-02-16] MEDS: AMPICILLIN 2 GM in NS 100 ML IV SCH ×3 (08:41→19:51)
[2019-02-16] MEDS: LOPRESSOR IV SCH ×2 (08:41→20:16)
[2019-02-16] MEDS: MAXIPIME 2 GM in NS 100 ML IV SCH ×2 (08:41→18:48)
[2019-02-16] MEDS: CLINIMIX E 4.25%-5% SOLUTION 1,000 ML IV SCH ×2 (08:47→12:35)
[2019-02-16] MEDS: ATIVAN IV PRN ×2 (09:51→21:11)
[2019-02-16] MEDS ORDERED: VANCOMYCIN 2,000 MG in NS 500 ML IV SCH (10:00)
--- NOTE | 2019-02-16 10:04 | INFECTIOUS DISEASE PROGRESS NO ---
DATE: 02/16/2019 HISTORY OF PRESENT ILLNESS: The patient is status post amputation of his left fifth toe from which methicillin-resistant Staph aureus was isolated. He went home and now he is back in the hospital with an altered mental status, the exact etiology of which is uncertain. MEDICATIONS: Currently, the patient is on a combination of ampicillin, cefepime and vancomycin as well as steroids. PHYSICAL EXAMINATION: Vital Signs: Temperature earlier was 102, now it is 100, pulse 96 respirations 28, blood pressure 184/102. General: This is an obese, chronically ill-appearing elderly male. He does not appear to be in any acute distress. He is on a BiPAP mask, however. Head/eyes/ears/nose/throat: No drainage noted from the nose or ears. As mentioned above, he has a BiPAP mask on. Neck: No meningismus. Lungs: Clear to auscultation. Cardiovascular: Heart rate was regular and rapid. Abdomen: Soft and nontender. Extremities: The patient's left foot showed a plantar ulcer and a lateral distal ulcer. There was no purulence noted and there was no odor to the foot. Neurologic: The patient did not respond to verbal stimuli. He does not have a tremor. LAB AND X-RAY: Patient's CBC shows a white count of 16,040, hemoglobin 12.4, platelet count is 289,000. Creatinine is 1.4. GFR is 49. Liver function studies are normal. Blood gases show a pH of 7.47, a PO2 of 100 and a pCO2 of 44. Drug screen was positive for opiates. X-ray of his left foot showed no osteomyelitis. Culture from his left foot and blood are negative. Head CT scan shows atrophy and microvascular changes and no acute disease. MRI of the brain showed a questionable stenosis of the basilar artery. Chest x-ray showed pulmonary venous congestion and no infiltrates. ASSESSMENT AND PLAN: The patient is status post amputation of his left fifth toe. At this time, he does not seem to have much of an infection in his left foot. The cause of the patient's altered mental status is uncertain to me. He does have a positive drug screen, which could be causing the change in mental status. I think Dr. Plunkett's thought about the patient possibly having a central nervous system infection also is a possibility. I am going to discontinue vancomycin, however, because the patient's creatinine is already elevated. Instead, I am going to order the patient to be on Zyvox unless there is some bad interaction with it in this patient. COMORBIDITIES: The patient is elderly. He is obese. He has obstructive sleep apnea. He has a positive drug screen. He also has COPD and gastroesophageal reflux disease as well as congestive heart failure. ADDENDUM: I attempted a spinal tap after cleaning the back with betadine without success. Dr. Reilly will be seeing the patient and hopefully he will do the spinal tap. cc: lAen Banks MD [facility]
[2019-02-16] MEDS: ZYVOX 600 MG/D5W 600 MG/300 ML IVPB IV SCH ×2 (11:12→20:58)
--- NOTE | 2019-02-16 15:14 | Diag Imaging Result Doc PS360 ---
EXAM: CT ANGIOGRAM HEAD/NECK 02/16/2019 HISTORY: MRI suspect Basilar artery stenosis TECHNIQUE: This exam was performed using automated exposure control, adjustment of mA or kV according to patient size, and/or use of iterative reconstruction technique. COMMENT: There is some tortuosity and irregularity of the basilar artery however the basilar artery is patent. There are calcifications in both vertebral arteries. There is considerable artifact in the intrathoracic portion of the study and indeed in the neck and oropharynx pharyngeal regions due to patient motion and dental appliances. There is what appears to be at least two stenotic lesions in the basilar artery one on image 199 of the axial series to an AP diameter of less than 2 mm. Distal to this there is an AP diameter of over 4 mm and subsequently the basilar artery can is narrowed to less than 3 mm with a basilar tip measuring almost 5 mm in diameter. The common and internal carotid arteries are patent. There are some atherosclerotic calcifications in the siphons bilaterally. The anterior, middle and posterior cerebral arteries are patent. 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 Electronically signed by Binh Larson 02/16/2019 3:12 PM
--- NOTE | 2019-02-16 15:40 | PULMONOLOGY PROGRESS NOTE ---
DATE: 02/16/2019 SUBJECTIVE: The patient's maximum temperature over the last 24 hours is 101.5 degrees. Current temperature 99.7 degrees. Blood pressure 142/63, heart rate 77, respiratory rate 22, oxygen saturation 97% on BiPAP. OBJECTIVE: HEENT: Patient's pupils reveal horizontal nystagmus. He does respond to painful stimuli with withdrawal of each upper extremity. LABORATORIES: White blood count 16.04, hemoglobin 12.4, platelet count 289,000. Sodium 142, potassium 4.5, chloride 105, bicarbonate 20, BUN 40, creatinine 1.4. C-reactive protein slightly elevated at 12.95. X-ray of the left foot yesterday afternoon reveals surgical resection of the 5th toe and 5th metatarsal. No evidence of air in the tissue. No overt evidence of osteomyelitis. IMPRESSION: A 78-year-old with: 1. Hypoxemic respiratory failure. 2. Obstructive sleep apnea. 3. Altered mental status. 4. Chronic obstructive pulmonary disease. 5. Acute hypoxic respiratory failure. PLAN: 1. Continue current antibiotic regimen. 2. Continue oxygen and BiPAP for hypoxemia and obstructive sleep apnea. 3. Await neurology evaluation. 4. Prognosis appears guarded to poor. cc: Royer Lott MD
[2019-02-17] MEDS: HUMALOG SUBQ SCH ×6 (00:22→20:01)
[2019-02-17] MEDS: AMPICILLIN 2 GM in NS 100 ML IV SCH ×4 (01:18→18:35)
[2019-02-17] MEDS: DUONEB (A & A) INH SCH ×6 (03:43→23:15)
[2019-02-17] MEDS: SOLU-MEDROL IV SCH ×2 (05:12→17:31)
[2019-02-17] MEDS: NS 1,000 ML IV SCH (05:13)
[2019-02-17 06:24] LABS: BASO# 0.01 X1000 (0.0-0.2); BASO% 0.1 % (0.0-0.8); HEMATOCRIT 40.8 % (42.0-52.0); HEMOGLOBIN 12.5 g/dL (14.0-18.0); IMM GRAN# 0.05 X1000 (0.0-0.04); IMM GRAN% 0.3 % (0.0-0.5); LYMPH# 0.92 X1000 (1.2-3.4); LYMPH% 5.8 % (20.5-51.1); MCH 26.2 PG (27-31); MCHC 30.6 g/dL (33-37); MCV 85.5 FL (81-99); MONO# 1.15 X1000 (0.11-0.59); MONO% 7.2 % (1.7-9.3); MPV 11.4 FL (7.4-10.4); NEUT# 13.78 X1000 (1.4-6.5); NEUT% 86.6 % (42.2-75.2); PLT 255 X1000 (130-400); RBC 4.77 XMIL (4.7-6.1); RDW 14.9 % (11.5-14.5); WBC 15.91 X1000 (4.8-10.8)
[2019-02-17 06:34] LABS: ALB/GLOB RATIO 0.8; CALCIUM 8.8 mg/dL (8.8-10.2); CREATININE 1.4 mg/dL (0.7-1.2); MAGNESIUM 2.7 mg/dL (1.5-2.7); PHOSPHORUS 3.1 mg/dL (2.7-4.5); POTASSIUM 4.9 mmol/L (3.5-5.1); TOTAL BILIRUBIN 0.44 mg/dL (0.20-1.00); TOTAL PROTEIN 6.9 g/dL (6.3-8.3)
[2019-02-17] MEDS: CLINIMIX E 4.25%-5% SOLUTION 1,000 ML IV SCH (07:59)
[2019-02-17] MEDS: MAXIPIME 2 GM in NS 100 ML IV SCH ×2 (07:59→19:22)
[2019-02-17] MEDS: LOPRESSOR IV SCH ×2 (08:01→20:01)
[2019-02-17] MEDS: ATIVAN IV PRN ×2 (08:40→14:59)
[2019-02-17] MEDS: APRESOLINE IV PRN ×2 (08:40→14:49)
[2019-02-17] MEDS: ZYVOX 600 MG/D5W 600 MG/300 ML IVPB IV SCH ×2 (08:48→20:54)
[2019-02-17] MEDS ORDERED: LANTUS INSULIN SUBQ ONE (10:44)
[2019-02-17 11:24] LABS: HEMOGLOBIN A1C 8.3 % (4.8-6.0)
[2019-02-17] MEDS: SANTYL OINT TOP SCH (11:30)
[2019-02-17] MEDS: LIPOSYN 20% 250 ML IV SCH (11:50)
--- NOTE | 2019-02-17 11:57 | PROGRESS NOTE ---
DATE: 02/17/2019 SUBJECTIVE: This morning, Mr. Arauz is seen in the ICU. He continues to be unresponsive. Per the nursing staff, nothing really has change clinically. He has had multiple episodes of elevated blood pressure readings. He has also had every now and then some PVCs on the quality assurance monitor. OBJECTIVE: Current Vital Signs: Blood pressure is 180/75, pulse of 88, respirations 23, temperature is 98.6 degrees, the patient had a T-max of 99.7 degrees. General: Mr. Arauz is a 78-year-old, elderly, male. He is morbidly obese. He has a BMI of 33.0. He is in bed. He is currently on the BiPAP. HEENT: Mucosa is pink and moist. Anicteric. Acyanotic. Neck: Supple. It is short. Chest: Air entry is bilaterally reduced. Some expiratory rhonchi. No wheezing. Cardiovascular: Regular rate and rhythm. Occasional PVCs. GI: Abdomen is soft, distended, but nontender. There is an old scar on the anterior abdominal wall. Extremities: No pedal edema. The lower extremity looks dry. ORDAINED MINISTER: The patient continues to be unresponsive. He is very rigid almost everywhere, except the left upper extremity that is very easily mobile. He will hyperextend his upper extremities to painful stimulation. His pupils are equal and they are reactive. He seems to have rolling eyes bilaterally. He does not have any trait. I do not see any clonus, and he does not seem to have any hyperflexion. LABORATORY DATA: WBC is 15.91, hemoglobin is 12.5, platelet count of 255,000. Sodium is 145, potassium is 4.9, chloride is 110, bicarb is 23, creatinine is 1.4, glucose is 258. CURRENT MEDICATIONS: Include ampicillin 2 grams every 6 hours, Zyvox 600 IV every 12 hours, cefepime 2 grams every 12 hours. IMAGING STUDIES: CTA of the head and neck done yesterday did show atherosclerotic changes with at least 2 stenotic lesions in the basilar area, but there was not any infarction. ASSESSMENT: 1. Protracted unresponsiveness. The patient is stuporous, with hyperextension of the upper extremities on physical exam, and also remarkably rigid. The patient is pending Neurology evaluation today. I believe the MRI on admission and a CTA yesterday only shows stenosis in the posterior circulation, but no mention of any bleed or any infarct. Electroencephalogram has been done today to rule out a nonconvulsive seizure. Infectious Disease is also on board. There has been the thought of possible central nervous system infectious course. A lumbar puncture was attempted yesterday; however, unsuccessful. There is a suspicion that this could also be all medication induced, especially serotonin syndrome. Celexa has been withheld. Mr Vasquez is said to have already declined cognitive functions. Will be pending Neurology evaluation to see what their recommendations will be eventually. 2. Acute on chronic kidney disease. Will continue with gentle hydration. 3. Chronic hypercarbia with respiratory acidosis. 4. Chronic obstructive pulmonary disease with exacerbation. The patient is currently on standard of care. 5. Clinical volume depletion. Will continue with intravenous fluids. 6. Nutritional needs. The patient is currently on Clinimix. We will add lipid infusion to meet his caloric input. 7. Hyperglycemia. The patient actually presented because of protracted hypoglycemia. However, his blood glucose is now on the higher end. He has been started on sliding scale. We are going to also put him on 10 units of Lantus, and continue to titrate. Would want to keep the blood glucose between 140 and 180mg/dl. Critical time spent 45 minutes cc: Riky Plunkett MD MTDD
[2019-02-17] MEDS ORDERED: XYLOCAINE 1% ONE (12:02)
--- NOTE | 2019-02-17 12:28 | INFECTIOUS DISEASE PROGRESS NO ---
DATE: 02/17/2019 PRESENT ILLNESS: Mr. 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 There was also a left foot plantar wound. He has an altered mental status of unknown etiology. MEDICATIONS: He is receiving Zyvox 600 mg IV every 12 hours, cefepime 2 g IV every 12 hours, and ampicillin 2 g IV every 6 hours. PHYSICAL EXAMINATION: Vital Signs: Temperature is 98.6 degrees, pulse rate 88, respiratory rate 23, blood pressure 180/75, O2 saturation is 97% on a 28% FiO2 mask. General: This is a critically ill-appearing, elderly male. He is lying in the bed and appears to be in a respiratory distress and is unresponsive to sternal rub. HEENT: Atraumatic, normocephalic. Oral mucous membranes are pink and dry. Conjunctivae are pink. Cardiovascular: Heart rate and rhythm are underlying rhythm regular with a sinus rhythm on the monitor and with frequent PVCs. Respiratory: Lung sounds have coarse rhonchi noted bilaterally. Work of breathing is noted with use of accessory muscles. Integumentary: Skin is warm and dry. The left foot has a plantar wound which is dry with a pink wound bed. Also, the incision is dry with a pink wound bed and some mild eschar to the surrounding tissue. Abdomen: Soft and large, with bowel sounds hypoactive. Neurologic: The patient has some mild withdrawal to pain but is not opening his eyes or responding to sternal rub. LABORATORY AND X-RAY: Today, his white count is 15.91, hemoglobin 12.5, platelet count 255,000. Creatinine is 1.4. GFR is 49. Total bilirubin is 0.44, AST 28, ALT 9, alkaline phosphatase 62. RPR is nonreactive. Blood cultures have shown no growth after 48 hours. His left foot culture has shown no growth on the final report. ASSESSMENT AND PLAN: Mr. Arauz is being treated for a methicillin-resistant Staphylococcus aureus osteomyelitis which has been amputated. At this point, he is receiving Zyvox. Cefepime and ampicillin have been added for the possibility of a central nervous system type infection. Today, we are hoping that Dr. Reilly can get a lumbar puncture which will give us more information. The patient has just completed an electroencephalogram. For now, we will continue antibiotics and follow the final cerebrospinal fluid results. These plans have been discussed with and recommended by Dr. Banks. COMORBIDITIES: For Mr. Arauz include that he is elderly and obese with obstructive sleep apnea, COPD, gastroesophageal reflux disease, congestive heart failure, and a positive drug screen on admission. Dictated by HERNANDEZ Alvarado for Alen Banks MD cc: Alen Banks MD [facility]
--- NOTE | 2019-02-17 13:20 | PULMONOLOGY PROGRESS NOTE ---
DATE: 02/17/2019 SUBJECTIVE: The patient responds to painful stimuli. He does not respond to his name. He moans with stimulation. OBJECTIVE: Vital Signs: Maximum temperature in the last 24 hours 99.7 degrees, current temperature 98.6 degrees, blood pressure 185/73, heart rate 66, respiratory rate 18, oxygen saturation 97%, HEENT: Pupils are equal but he does have some nystagmus. Neck: Supple. No rigidity noted. Chest: Reveals shallow breath sounds bilaterally without wheezing or rhonchi. Cardiac: Exam S1-S2. Abdomen: Obese and soft. Extremities: Without edema. LABORATORIES: White blood count 15.9, hemoglobin 12.5, platelet count 255,000. Sodium 145, potassium 4.9, chloride 110, bicarbonate 23, BUN 44, creatinine 1.4, glucose 258. 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 IMPRESSION: 78-year-old with 1. Hypoxic respiratory failure. 2. Obstructive sleep apnea. 3. Diabetes mellitus. 4. Episode of hypoglycemia. 5. Altered mental status. 6. Chronic obstructive pulmonary disease. 7. Status post recent surgery for osteomyelitis. PLAN: 1. Neurology evaluation in progress. He is currently undergoing an EEG. 2. Continue oxygen/BiPAP. 3. Prognosis appears guarded to poor given ongoing encephalopathy. cc: Royer Lott MD
--- NOTE | 2019-02-17 14:14 | EEG REPORT ---
DATE: 02/17/2019 EEG NUMBER: [id number]. COMMENT: This is a digitally recorded EEG on a 78-year-old patient with apparent global encephalopathy. FINDINGS: Most of the record shows generalized slowing in the 4 to 6 hertz range symmetrically across the hemispheres. There is occasional slowing into the delta range at 2 to 3 hertz, with highest amplitude frontally bilaterally. There is occasional movement, muscle contraction, and EKG artifact. There was no variation to correlate with spontaneous drowsing or sleep. Photic stimulation did not alter the record. No definite epileptiform discharge was identified. INTERPRETATION: Abnormal electroencephalogram because of generalized slowing. CORRELATION: This is indicative of a diffuse encephalopathy, and is nonspecific. The absence of epileptiform discharges on a single EEG do not exclude a single clinical diagnosis of seizure, but there is nothing on this record to suggest the presence of a seizure disorder. cc: MD Riky Jeff III, MD MTDD
--- NOTE | 2019-02-17 14:36 | CONSULTATION ---
DATE OF CONSULTATION: 02/17/2019 LOCATION: ICU bed 14. HISTORY OF PRESENT ILLNESS: Mr. Arauz is 78 years old, and he has been poorly responsive following a period of reported confusion at home. He had recent left fifth toe amputation. There is report that he may have been temporarily improved following naloxone administration in the emergency room. Workup includes brain MRI done with and without contrast 3 days ago showing usual changes, nothing remarkable, nothing focal. Lab showed recent blood sugars 200s to 300s. BUN is 44, above recent baseline, but he has had similar BUN elevations in the more remote past. He has been afebrile for the last few days, but had temperature recorded at 101.5 on 02/15/2019. WBC has been 13,000 [address] Dr. Marie saw him for Neurology twice in 2018 with global encephalopathy, likely toxic/metabolic etiology. gives clear history that he has had some forgetfulness for at least a year, possibly as long as 2 years. That has been gradually progressive. During that time, he has seemed much more confused with any medical illness. On exam, Mr. Arauz is supine, breathing regularly, not responding to me. Tone is increased throughout. Plantar response is silent bilaterally. Reflexes are absent at the ankles bilaterally. He did not respond to moderate level of noxious stimulation over the limbs. He has full lateral eye movement with passive head turning. Pupils react to light. Corneal reflexes are symmetric. Facial motility is symmetric. Tongue is midline. IMPRESSION: Global encephalopathy, uncertain etiology. He has a few relatively minor metabolic findings on lab work. Urine drug screen was positive for opiates on presentation, and there may be concern for toxic encephalopathy. He had fairly low-grade fever earlier this admission, and then maximum temperature 101.5 degrees more than 48 hours ago. There is concern for central nervous system infection. Lumbar puncture was attempted, but was unsuccessful. His rigidity prevented adequate positioning. Electroencephalogram showed generalized slowing, but no definite epileptiform discharge, and no definite evidence of tendency to seizure. The negative MRI is reassuring. I suspect he has a baseline cognitive impairment syndrome with acute/subacute exacerbation of encephalopathy associated with his toxic and metabolic problems. His level of responsiveness is still poor, even considering these possible contributions to encephalopathy. I will let Dr. Banks know that we failed attempt to obtain cerebrospinal fluid. From a Neurology standpoint, I do not have urgent suggestion. We might empirically cover him with antiseizure medicine, but nothing in the history is definite for seizure, and electroencephalogram did not show evidence of seizure. Thank you for asking Neurology to see Mr. Arauz. cc: MD JACKY Jeff III
[2019-02-18] MEDS: AMPICILLIN 2 GM in NS 100 ML IV SCH ×4 (01:32→19:35)
[2019-02-18] MEDS: HUMALOG SUBQ SCH ×6 (01:32→20:26)
[2019-02-18] MEDS: NS 1,000 ML IV SCH (02:37)
[2019-02-18] MEDS: APRESOLINE IV PRN ×3 (02:37→15:13)
[2019-02-18] MEDS: DUONEB (A & A) INH SCH ×6 (03:43→23:32)
[2019-02-18] MEDS: CLINIMIX E 4.25%-5% SOLUTION 1,000 ML IV SCH (03:56)
[2019-02-18] MEDS: SOLU-MEDROL IV SCH ×2 (04:46→16:16)
[2019-02-18 05:12] LABS: HEMATOCRIT 45.1 % (42.0-52.0); HEMOGLOBIN 13.9 g/dL (14.0-18.0); IMM GRAN# 0.04 X1000 (0.0-0.04); IMM GRAN% 0.3 % (0.0-0.5); LYMPH# 0.68 X1000 (1.2-3.4); MCH 26.2 PG (27-31); MCHC 30.8 g/dL (33-37); MCV 85.1 FL (81-99); MONO# 0.91 X1000 (0.11-0.59); MONO% 6.7 % (1.7-9.3); MPV 11.6 FL (7.4-10.4); NEUT# 12.03 X1000 (1.4-6.5); PLT 261 X1000 (130-400); RDW 15.2 % (11.5-14.5); WBC 13.66 X1000 (4.8-10.8)
[2019-02-18 05:42] LABS: ALBUMIN 3.5 g/dL (3.5-5.0); CALCIUM 8.5 mg/dL (8.8-10.2); CREATININE 1.6 mg/dL (0.7-1.2); MAGNESIUM 2.8 mg/dL (1.5-2.7); PHOSPHORUS 3.5 mg/dL (2.7-4.5); TOTAL BILIRUBIN 0.49 mg/dL (0.20-1.00)
[2019-02-18 05:55] LABS: LYMPHS 2 % (21-51); MONO 6 % (1-9); SEGS 92 % (42-75)
[2019-02-18] MEDS: MAXIPIME 2 GM in NS 100 ML IV SCH ×4 (07:14→22:12)
[2019-02-18] MEDS ORDERED: LANTUS INSULIN SUBQ ONE (08:10)
[2019-02-18] MEDS: LOPRESSOR IV SCH ×2 (08:41→20:25)
[2019-02-18] MEDS: LANTUS INSULIN SUBQ SCH (08:42)
[2019-02-18] MEDS: ZYVOX 600 MG/D5W 600 MG/300 ML IVPB IV SCH ×2 (08:47→22:45)
--- NOTE | 2019-02-18 08:47 | INFECTIOUS DISEASE PROGRESS NO ---
DATE: 02/18/2019 PRESENT ILLNESS: The patient is being treated for methicillin-resistant Staph aureus osteomyelitis of the left foot. He also has an altered mental status, the etiology of which is uncertain. MEDICATIONS: This is day 2 of treatment with a combination of ampicillin, cefepime, and Zyvox. The patient also is receiving intravenous steroids. PHYSICAL EXAMINATION: Vital Signs: Temperature is 98.2 degrees, pulse 111, respirations 18, blood pressure is 150/82. General: This is a somewhat ill-appearing, elderly male. He has a BiPAP mask on. He does not seem to be in any acute distress. HEENT: BiPAP mask is on. No drainage coming from the nose or ears. Neck: No meningismus. Lungs: Clear to auscultation. Cardiovascular: The patient's heart rate at times seemed regular, at other times it was irregular. Abdomen: Soft and nontender. Extremities: The patient's left foot has a plantar ulcer, and also an ulcerated area of where the fifth toe was amputated. Both sites are smaller. They have mostly beefy, red tissue, and no necrosis or odor. Neurologic: The patient is not arousable. He is breathing on his own. He did not follow any verbal requests. There was no tremor. IMAGING AND LABORATORY DATA: There is no radiologic study from today. The patient's CBC shows a white count of 13,660, hemoglobin 13.9, platelet count 261,000. Creatinine is 1.6. GFR is 42. Liver function studies are normal. RPR was nonreactive. Blood and left foot wound cultures are negative. 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 The little toe has been amputated. The patient also has an altered mental status, the etiology of which is uncertain. I think overall, the patient might be getting better. I plan on continuing the patient's antibiotics. The patient does have a leukocytosis. However, he is receiving intravenous steroids, which could be causing the leukocytosis as well. COMORBIDITIES: The patient is elderly, obese, he has obstructive sleep apnea, gastroesophageal reflux disease, congestive heart failure, and a positive drug screen on admission to the hospital. cc: Alen Banks MD
[2019-02-18] MEDS: SANTYL OINT TOP SCH (09:07)
[2019-02-18] MEDS: D5W 1,000 ML IV SCH ×2 (09:07→20:36)
[2019-02-18] MEDS ORDERED: DULCOLAX PR ONE (10:01)
[2019-02-18] MEDS: LIPOSYN 20% 250 ML IV SCH (10:23)
--- NOTE | 2019-02-18 11:19 | Diag Imaging Result Doc PS360 ---
EXAM: CHEST-PORTABLE HISTORY: NG verification TECHNIQUE: Single view COMPARISON: 02/14/2019 FINDINGS: A nasogastric tube has been placed. The tip appears to be close to the gastroesophageal junction. However, there is some blurriness to the film and the nasogastric tube may in fact enter the stomach. Advancement with follow-up imaging recommended. Electronically signed by Quincy Ovalle 02/18/2019 11:16 AM
--- NOTE | 2019-02-18 11:39 | PROGRESS NOTE ---
DATE: 02/18/2019 SUBJECTIVE: This morning, Mr. Arauz continues to be fairly the same. No changes, as per the nursing staff. OBJECTIVE: Vital Signs: Blood pressure is 200/91, pulse of 105, respirations are 30, temperature is 98.4 degrees. Patient had a T-max of 99.7 degrees yesterday at 1951. General Examination: Mr. Arauz is a 78-year-old, elderly, gentleman. He is in bed. He is still on the BiPAP. HEENT: Mucosa is pink and moist. Anicteric. Acyanotic. Neck: Supple. Chest: Good air entry bilaterally. There were no crepitations. There are some transmitted sounds from the BiPAP. Cardiovascular: Regular rate and rhythm with occasional PVC. Abdomen: Soft. Distended but nontender. There is an old scar on the anterior abdominal wall. Extremities: No pedal edema. The skin looks dry. There is a left lower extremity external digit amputation noted. 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 Will hyperextend both upper extremities to painful stimulation. He also moves the lower extremity to painful stimulation, like he is withdrawing from them. He remains quite rigid everywhere except the left upper extremity, that is easily mobile. His pupils are equal and they are reactive. Laboratory Data: WBC is 13.66, hemoglobin is 13.9, platelet count of 261,000. Chemistry is also reviewed. Sodium is 148, potassium is 5.0, creatinine is 1.6. Is and Os: Urine output is 2175. Currently positive balance of 1083 during the hospital course. No imaging studies today. So far, blood cultures have been 48 hours negative. The culture from the left foot is also no growth. Current medications have also been reviewed. The patient is on ampicillin, cefepime, and Zyvox. ASSESSMENT: 1. Protracted unresponsiveness of unclear etiology. Prolong hypoglycemic encephalopathy was the initial suspicion. Neurology is on board. Electroencephalogram was negative for seizures. Neuroimaging has been, for the most part, unremarkable. 2. Acute on chronic kidney disease. We will continue with adequate hydration. 3. Acute on Chronic hypercarbia with respiratory acidosis. 4. Chronic obstructive pulmonary disease with exacerbation. Patient is on antibiotics, steroids, and nebulization. 5. Clinical volume depletion. We are going to continue with intravenous fluids. I will change his sodium-containing fluids to just D5 because of the elevated sodium this morning. 6. Hyperglycemia. We will continue with insulin regimen. I have gone up on the Lantus to 20 units today. We will continue with the sliding scale. 7. Nutritional needs. Mr. Arauz is currently on Clinimix with lipid infusion. We are going to put in a nasogastric tube and start him on enteral feedings. 8. Methicillin-resistant Staphylococcus aureus osteomyelitis of the left foot. The patient is status post digit amputation on the left. So far, the culture has come back negative. Patient is on Zyvox. We will continue with proton pump inhibitor and deep venous thrombosis prophylaxis. I have discussed my findings and plans with the mother and a sister who were at the bedside. All questions and concerns addressed. cc: Riky Plunkett MD MTDD
[2019-02-18] MEDS: ATIVAN IV PRN (11:43)
[2019-02-18] MEDS: PROTONIX IV SCH (12:57)
[2019-02-18] MEDS: SODIUM CHLORIDE 0.9% INJ SCH (12:58)
--- NOTE | 2019-02-18 13:03 | Diag Imaging Result Doc PS360 ---
CHEST-PORTABLE - 02/18/2019 INDICATION: NG placement COMPARISON: 10:59 AM FINDINGS: There is a nasogastric tube in good position in the distal stomach. IMPRESSION: Nasogastric tube in the stomach. Electronically signed by Librado Nuñez 02/18/2019 1:01 PM
[2019-02-18] MEDS: COREG PO SCH ×2 (14:23→20:25)
[2019-02-18] MEDS: NORVASC PO SCH ×2 (14:23→20:25)
[2019-02-18] MEDS: HEPARIN SUBQ SCH (20:25)
[2019-02-18 20:57] LABS: ALLEN TEST YES; BE 1.7 mmoll (-3.0-3.0); BLOOD TYPE ARTERIAL; HCO3-(ACT) 26.2 mmoll (20.0-26.0); METHB 0.8 % (0.0-1.5); O2(CT) 19.9 mL/dL (15.0-23.0); O2HB 96.2 % (95.0-99.0); PCO2(98.6) 42 mmHg (35-45); PO2(98.6) 114 mmHg (60-100); SAMPLE BLOOD; THB 14.6 g/dL (11.5-17.4); pH(98.6) 7.41 (7.35-7.45)
[2019-02-18 20:58] LABS: MODALITY BI PAP
--- NOTE | 2019-02-18 21:26 | PULMONOLOGY PROGRESS NOTE ---
DATE: 02/18/2019 SUBJECTIVE: The patient responds to painful stimuli. He will not respond to voice. OBJECTIVE: Vital Signs: Maximum temperature in the last 24 hours 100.2 degrees, blood pressure 210/80, heart rate 98, respiratory rate 24, oxygen saturation 97%. HEENT: Pupils are equal and reactive. Oropharynx appears dry but clear. Neck: Supple. Chest: Reveals prolonged expiratory phase. The patient has evidence of obstruction. Cardiac: S1, S2. Abdomen: Obese and soft. Extremities: Reveal prior amputation of the toe. LABORATORIES: Chest x-ray reveals relatively clear lung quiros. Arterial blood gas reveals a pH 7.41, PCO2 42, PO2 of 114. IMPRESSION: A 78-year-old with 1. Hypoxemic respiratory failure. 2. Obstructive sleep apnea. 3. Diabetes mellitus. 4. Episode of hypoglycemia which was likely significant prior to admission. 5. Ongoing altered mental status, hypoglycemic induced lung injury with encephalopathy is suspected. 6. Chronic obstructive pulmonary disease. 7. Status post recent surgery for osteomyelitis . PLAN: 1. Continue oxygen, BiPAP. 2. Agree with free water given hypernatremia. 3. Prognosis appears to be poor given ongoing encephalopathy 96 hours after admission. Agree with current resuscitation status which will allow him to have a natural if he has a cardiac or pulmonary event. cc: Royre Lott MD
[2019-02-19] MEDS: HUMALOG SUBQ SCH ×6 (00:31→20:48)
[2019-02-19] MEDS: CLINIMIX E 4.25%-5% SOLUTION 1,000 ML IV SCH ×3 (00:31→20:47)
[2019-02-19] MEDS: APRESOLINE IV PRN ×3 (01:23→23:09)
[2019-02-19] MEDS: AMPICILLIN 2 GM in NS 100 ML IV SCH ×2 (02:21→07:18)
[2019-02-19] MEDS: DUONEB (A & A) INH SCH ×6 (03:15→23:25)
[2019-02-19] MEDS: SOLU-MEDROL IV SCH ×2 (05:07→16:16)
[2019-02-19 05:47] LABS: EOS# 0.02 X1000 (0.0-0.7); EOS% 0.2 % (0.0-10.0); HEMATOCRIT 41.7 % (42.0-52.0); HEMOGLOBIN 12.6 g/dL (14.0-18.0); IMM GRAN# 0.03 X1000 (0.0-0.04); IMM GRAN% 0.3 % (0.0-0.5); LYMPH# 0.53 X1000 (1.2-3.4); LYMPH% 4.6 % (20.5-51.1); MCHC 30.2 g/dL (33-37); MONO# 0.86 X1000 (0.11-0.59); MONO% 7.4 % (1.7-9.3); MPV 11.7 FL (7.4-10.4); NEUT# 10.17 X1000 (1.4-6.5); NEUT% 87.5 % (42.2-75.2); PLT 196 X1000 (130-400); RBC 4.85 XMIL (4.7-6.1); WBC 11.61 X1000 (4.8-10.8)
[2019-02-19 06:11] LABS: MAGNESIUM 2.7 mg/dL (1.5-2.7); PHOSPHORUS 3.3 mg/dL (2.7-4.5); PREALBUMIN 21.2 mg/dL (20-40)
[2019-02-19 06:12] LABS: ALB/GLOB RATIO 0.8; ALBUMIN 2.9 g/dL (3.5-5.0); CALCIUM 8.3 mg/dL (8.8-10.2); CREATININE 1.4 mg/dL (0.7-1.2); POTASSIUM 4.6 mmol/L (3.5-5.1); TOTAL BILIRUBIN 0.44 mg/dL (0.20-1.00); TOTAL PROTEIN 6.4 g/dL (6.3-8.3)
[2019-02-19] MEDS: COREG PO SCH ×2 (08:50→20:46)
[2019-02-19] MEDS: NORVASC PO SCH ×2 (08:50→20:47)
[2019-02-19] MEDS: MAXIPIME 2 GM in NS 100 ML IV SCH (08:50)
[2019-02-19] MEDS: LOPRESSOR IV SCH ×2 (08:51→20:48)
[2019-02-19] MEDS: HEPARIN SUBQ SCH ×2 (08:51→20:46)
[2019-02-19] MEDS: LANTUS INSULIN SUBQ SCH (08:51)
[2019-02-19] MEDS: ZYVOX 600 MG/D5W 600 MG/300 ML IVPB IV SCH (08:52)
[2019-02-19] MEDS: SANTYL OINT TOP SCH (08:52)
[2019-02-19] MEDS: D5 1/2 NS + KCL 10 MEQ 1,000 ML IV SCH ×2 (10:06→20:47)
--- NOTE | 2019-02-19 10:10 | PROGRESS NOTE ---
DATE: 02/19/2019 SUBJECTIVE: This morning, Mr. Arauz continues to be the same. No new changes per the nursing staff. He remains unresponsive. OBJECTIVE: Vital Signs: Blood pressure is 195/101, pulse of 73, respirations 14, temperature is 97.3 degrees. The patient did run a few temps of 100.2 yesterday. General: Mr. Arauz is a 78- year-old gentleman. He is in bed. He is on the BiPAP. HEENT: Mucosa is pink and moist. Anicteric. Acyanotic. Neck: Supple. Chest: Good air entry bilaterally. No crepitations. Cardiovascular: Regular rate and rhythm. No murmurs. GI: Abdomen is soft. It is distended. There is an old scar on the anterior abdominal wall. Extremities: No pedal edema. There is also an old sternotomy scar. 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 Arauz continues to be unresponsive. Will only hyperextend his upper extremities to painful stimulation. He remains very rigid. Even when you try to bend the legs, it is just almost impossible. I am not sure if there is some voluntary will in the process. His pupils continue to be reactive, and he has corneal reflex, but he does not seems to have any threat. The patient is nonverbal and will barely open the eyes to extremely painful stimulation, and also appears to either withdrawal or decerebrate. At best, his GCS will be 7/15. Lower Extremities: There is an amputation of the fifth digit on the left. ASSESSMENT: 1. Protracted period of unresponsiveness of unclear etiology. The patient remains severely stuporous with Beebe Coma Scale of 7 to 8 at best over 15. The reason for him to have been in this protracted responsiveness still remains undetermined. He has not really responded to antimicrobial therapy, and electroencephalogram did not show any ongoing nonconvulsive seizures. It appears that this is related to prolonged hypoglycemic damage to the brain coupled with possible anoxic brain injury and possible medication-induced as well. It appears that this is multifactorial in etiology in the background of dementia. The patient continues to be seen by Neurology. 2. Acute on chronic renal failure. Creatinine is down to 1.4 from 1.6 yesterday. BUN has also improved. We are going to continue with the gentle hydration. 3. Acute on chronic hypercarbic respiratory failure. The patient is on bilevel positive airway pressure therapy. 4. Acute hypoxemic failure. The patient is on bilevel positive airway pressure therapy. 5. Chronic obstructive pulmonary disease with exacerbation. Will continue with standard of care. The patient is also being seen by Pulmonary Medicine. 6. Clinical volume depletion. Will continue with intravenous fluids. 7. Hyperglycemia. Will continue with insulin regimen. 8. Uncontrolled hypertension. Will continue with antihypertensive therapy. The carvedilol has been increased, and we have added hydralazine by mouth. 9. History of methicillin-sensitive Staphylococcus aureus osteomyelitis of the left foot. The patient is status post digit amputation on the left. Cultures have come back negative. Antibiotics have been discontinued this morning per Infectious Disease. 10. Severe rigidity of unclear course. Will continue using Ativan as needed. In general, Mr. Arauz has not shown any improvement 5 days of being in the hospital. He remains almost in the same physical findings from day 1. It does not appear to me that he is going to recover any time soon from his neurological insult. All the neuroimaging studies that were done in the hospital, including an MRI of the brain, followed up by a CTA of head and neck have been, for the most part, unremarkable, except for some stenotic lesion in the posterior circulation. We are going to follow up with further recommendations from Neurology. Pending to discuss findings today with the family members and let me know what the expectations will be going forward. For now, Mr. Arauz is DO NOT RESUSCITATE level 1. I think if he remains the same, will have to address possible hospice and comfort care measures since he has not had any remarkable neurological recovery. cc: Riky Plunkett MD Addendum: I have spoken with Mr Arauz son, Andre Vasquez on the phone--[phone] I have updated him about his dad current condition. 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 The son understands the poor nature and prognosis of his dad current situation. All his questions and concerns were addressed. He also reiterated that the family prefers patient to be Full code for now MTDD
[2019-02-19] MEDS: PROTONIX IV SCH (11:22)
[2019-02-19] MEDS: SODIUM CHLORIDE 0.9% INJ SCH (11:22)
[2019-02-19] MEDS: LIPOSYN 20% 250 ML IV SCH (11:23)
[2019-02-19] MEDS: APRESOLINE PO SCH ×2 (11:59→16:19)
--- NOTE | 2019-02-19 13:27 | PROGRESS NOTE ---
DATE: 02/19/2019 OBJECTIVE: Mr. Arauz continues very poorly responsive. With vigorous noxious stimulation, he increased his rate of breathing, groaned loudly, withdrew the stimulated limb. He did not speak or communicate otherwise. He did not follow commands. Limb tone continues increased symmetrically. There is good lateral eye movement with passive head turning. I do not find any focal neurologic feature. He is afebrile at this time. WBC count has been trending downward, 11,000 today. He continues to have moderate blood sugar elevations, BUN has climbed to 47 today. IMPRESSION: Global encephalopathy with uncertain etiology. I believe that he has a baseline cognitive impairment syndrome which would predispose him to more protracted and prominent features of encephalopathy with any toxic or metabolic disturbance, but I am still concerned that we have not seen significant clinical change management facilitator the last few days. I do not have any specific suggestion today. Thanks for asking Neurology to see Mr. Arauz. cc: Majo Reilly III, MD MTDD
--- NOTE | 2019-02-19 14:36 | INFECTIOUS DISEASE PROGRESS NO ---
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 He has had surgery on that foot and his most recent culture from the foot was sterile. The patient has also had an altered mental status, the etiology of which is uncertain. MEDICATIONS: This is day 3 of treatment with the combination of ampicillin, cefepime, and Zyvox. The patient also is receiving steroids. PHYSICAL EXAMINATION: Vital Signs: Temperature is 98 degrees, pulse 76, respirations 14, blood pressure 195/101. General: This is an obese, ill-appearing, elderly male. He is wearing a BiPAP mask and is obtunded, although he is breathing on his own. There is no drainage coming from his nose or ears. Neck: No stiffness. Lungs: Clear to auscultation. Cardiovascular: Heart rate is regular. Abdomen: Soft and not tender. Extremities: The left foot, the patient's 2 ulcerated areas on the left foot are not purulent and there is no surrounding erythema. Neurologic: The patient is obtunded. He did not respond to verbal stimuli. LAB AND RADIOLOGY: The patient's CBC shows a white count of 11,610, hemoglobin 12.6, and platelet count 196,000. Creatinine is 1.4. GFR is 49. There is no new radiographic study for today. ASSESSMENT AND PLAN: It appears to me that the patient's methicillin-resistant Staph aureus of the left foot has been cleared because of surgery and also because the patient has received antibiotics. As regarding his mental status, that etiology is uncertain to me. I do not think that it is due to an infection. I discussed the patient's situation with Dr. Plunkett and we both feel that the patient does not have an infection at this time. It should be noted that the white blood cell count is coming down. The patient also is on steroids. Our plan now is to stop the patient's antibiotics and will follow him closely. If it appears that he is deteriorating or if his white count goes up more, then we will reinstitute his antibiotics and also at that time we may be forced into sending the patient down to radiology to see if the radiologist could do the LP under fluoroscopic vision. COMORBIDITIES: The patient is elderly. He is obese. He has obstructive sleep apnea, gastroesophageal reflux disease, congestive heart failure, and a history of drug abuse. cc: Alen Banks MD
[2019-02-19] MEDS ORDERED: LASIX IV ONE (20:31)
[2019-02-19] MEDS: ATIVAN IV PRN (23:10)
[2019-02-20] MEDS: HUMALOG SUBQ SCH ×6 (01:31→20:46)
[2019-02-20] MEDS: DUONEB (A & A) INH SCH ×6 (03:06→23:28)
[2019-02-20] MEDS: ATIVAN IV PRN (04:19)
[2019-02-20] MEDS: SOLU-MEDROL IV SCH ×2 (04:19→17:24)
[2019-02-20 04:25] LABS: ALLEN TEST YES; BE 2.4 mmoll (-3.0-3.0); BLOOD TYPE ARTERIAL; HCO3-(ACT) 26.8 mmoll (20.0-26.0); METHB 0.7 % (0.0-1.5); O2HB 96.2 % (95.0-99.0); PCO2(98.6) 38 mmHg (35-45); PO2(98.6) 120 mmHg (60-100); SAMPLE BLOOD; SAO2 98.1 % (95.0-100.0); THB 15.4 g/dL (11.5-17.4); pH(98.6) 7.45 (7.35-7.45)
[2019-02-20 04:26] LABS: MODALITY BI PAP
--- NOTE | 2019-02-20 05:14 | PULMONOLOGY PROGRESS NOTE ---
DATE: 02/19/2019 SUBJECTIVE: The patient has a soft continuous moan on exhalation. He responds to painful stimuli. He does not respond to his name. OBJECTIVE: Vital Signs: Maximum temperature in the last 24 hours 100.3 degrees, current temperature 98.0. HEENT: Pupils are equal and reactive. Oropharynx appears clear but evaluation is limited. Neck: Supple. Lungs: Chest reveals prolonged expiratory phase with evidence of obstruction. Cardiac: S1-S2. Abdomen: Obese and soft. Extremities: Chronic vascular disease with prior amputation on the left. LABORATORIES: White blood count 11.6, hemoglobin 12.6, and platelet count 196,000. Sodium 142, potassium 4.6, chloride 108, bicarbonate 29, BUN 47, and creatinine 1.4. IMPRESSION: A 78-year-old with: 1. Hypoxemic respiratory failure. 2. Obstructive sleep apnea. 3. Diabetes mellitus. 4. Hypoglycemia. 5. Ongoing encephalopathy, possibly related to severe hypoglycemic event. 6. Chronic obstructive pulmonary disease. DISCUSSION: A 78-year-old with problems outlined above. His prognosis appears poor. He is 5 days into this hospitalization, and had no significant improvement in mental status. RECOMMENDATIONS: 1. Continue oxygen and BiPAP. 2. Continue ICU monitoring. The patient's family is currently requesting a full code/full resuscitation in this patient. If he requires intubation, then he will likely require tracheostomy and possible PEG tube placement. 3. Prognosis appears guarded to poor. cc: Royer Lott MD
[2019-02-20] MEDS: APRESOLINE IV PRN (07:30)
[2019-02-20] MEDS: D5 1/2 NS + KCL 10 MEQ 1,000 ML IV SCH ×3 (07:31→17:30)
--- NOTE | 2019-02-20 07:32 | Diag Imaging Result Doc PS360 ---
EXAM: CHEST-PORTABLE INDICATION: dyspnea TECHNIQUE: One view COMPARISON: 02/18/2019 FINDINGS: There is an NG tube. The tip projects below the diaphragm and out of the [id number], assumed to be in the lumen of the stomach. The lungs are grossly clear. No new consolidation is identified. Cardiac silhouette is stable. IMPRESSION: Stable chest. Electronically signed by Flako Anderson 02/20/2019 7:30 AM
[2019-02-20 07:33] LABS: HEMOGLOBIN 14.2 g/dL (14.0-18.0); IMM GRAN# 0.03 X1000 (0.0-0.04); IMM GRAN% 0.2 % (0.0-0.5); LYMPH# 0.89 X1000 (1.2-3.4); LYMPH% 6.7 % (20.5-51.1); MCH 26.2 PG (27-31); MCHC 30.9 g/dL (33-37); MCV 84.7 FL (81-99); MONO# 0.58 X1000 (0.11-0.59); MONO% 4.4 % (1.7-9.3); MPV 12.4 FL (7.4-10.4); NEUT# 11.75 X1000 (1.4-6.5); NEUT% 88.7 % (42.2-75.2); PLT 231 X1000 (130-400); RBC 5.43 XMIL (4.7-6.1); RDW 14.9 % (11.5-14.5); WBC 13.25 X1000 (4.8-10.8)
[2019-02-20 07:47] LABS: ALB/GLOB RATIO 0.9; ALBUMIN 3.4 g/dL (3.5-5.0); CALCIUM 8.8 mg/dL (8.8-10.2); CREATININE 1.5 mg/dL (0.7-1.2); MAGNESIUM 2.8 mg/dL (1.5-2.7); PHOSPHORUS 3.4 mg/dL (2.7-4.5); POTASSIUM 4.9 mmol/L (3.5-5.1); TOTAL BILIRUBIN 0.51 mg/dL (0.20-1.00); TOTAL PROTEIN 7.2 g/dL (6.3-8.3)
[2019-02-20 08:03] LABS: ANISOCYTOSIS 1+; LYMPHS 6 % (21-51); MICROCYTOSIS 1+; MONO 3 % (1-9); POLYCHROM 1+; SEGS 91 % (42-75)
[2019-02-20 08:04] LABS: LARGE PLATELETS OCCASIONAL; SCHISTOCYTES OCCASIONAL
[2019-02-20] MEDS: LOPRESSOR IV SCH (08:40)
[2019-02-20] MEDS: COREG PO SCH ×2 (08:40→20:46)
[2019-02-20] MEDS: HEPARIN SUBQ SCH ×2 (08:40→20:47)
[2019-02-20] MEDS: NORVASC PO SCH ×2 (08:40→20:46)
[2019-02-20] MEDS: APRESOLINE PO SCH ×3 (08:40→17:24)
[2019-02-20] MEDS: SANTYL OINT TOP SCH (08:43)
[2019-02-20] MEDS ORDERED: LANTUS INSULIN SUBQ SCH (09:00)
--- NOTE | 2019-02-20 10:48 | PROGRESS NOTE ---
DATE: 02/20/2019 SUBJECTIVE: This morning, Mr. Arauz remains the same. No changes overnight. No family member was at the bedside at the time of the encounter. I spoke with the son in [place] yesterday. OBJECTIVELY: Current vital signs: Blood pressure is 176/82, pulse of 77, respiration is 18, temperature 97.8 degrees. General: Mr. Arauz is a 78-year-old gentleman. He is in bed, does not seem to be in any distress. HEENT: Mucosa is pink and moist. Anicteric. Acyanotic. Neck: Supple. Chest: Air entry is bilaterally reduced. There are some transmitted sounds I think from the upper airway, but no wheezing. Cardiovascular: Regular rate and rhythm. No murmurs, no rubs, no gallops. Gastrointestinal: Abdomen is soft. Bowel sounds present. Extremities: No pedal edema. Central nervous system: Patient remains unresponsive, for the most part rigid. Pupils are equal and reactive. The patient has good corneal reflex and normal pupillary reflex. He continues to show slight extension of the upper extremity to painful stimulation. He tries to withdraw from pain in the lower extremities. He has a GCS of 7 to 8/15. LABORATORY DATA: WBC is 13.25, hemoglobin of 14.2, platelet count of 231,000. ABG was fairly unremarkable. Chemistry shows creatinine of 1.5. ASSESSMENT: 1. Protracted period of unresponsiveness of unclear etiology. The patient remains GCS of 7 to 8/15. Neurology is on board. 2. Acute on chronic renal failure. Patient's creatinine is 1.5. 3. Acute on chronic hypercarbic respiratory failure. We will continue cycling between the BiPAP. We will continue using BiPAP as needed. 4. Acute hypoxemic respiratory failure. The patient is now on Venturi mask, saturating well. 5. Clinical volume depletion. We have gone up on the IV fluids. 6. 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 The patient is status post toe amputation. 7. Chronic obstructive pulmonary disease with mild exacerbation, improved. Patient is on steroids, nebulization. Pulmonary Medicine is on board. We are going to start weaning him off the steroids. 8. Diabetes mellitus with hyperglycemia. We will continue with insulin regimen. A1c of 8.3 on admission. 9. Severe motor rigidity of unclear etiology. We will use Ativan p.r.n. 10. Nutritional needs. The patient is tolerating his tube feeding. Per the nursing staff, he has also had a good bowel movement today. His feeding rate is currently at 40 mL per hour. We are going to continue with this. We will discontinue the Clinimix with lipid infusion. cc: Riky Plunkett MD
[2019-02-20] MEDS: SODIUM CHLORIDE 0.9% INJ SCH (11:14)
[2019-02-20] MEDS: PROTONIX IV SCH (11:14)
--- NOTE | 2019-02-20 12:15 | INFECTIOUS DISEASE PROGRESS NO ---
DATE: 02/20/2019 PRESENT ILLNESS: The patient has methicillin-resistant Staphylococcus aureus osteomyelitis of the left foot. He has had surgery on that foot and he has had amputation of the left foot fifth toe. The patient has an altered mental status, the etiology of which is uncertain. MEDICATIONS: Yesterday, the patient's antibiotics were discontinued. PHYSICAL EXAMINATION: Vital Signs: Temperature is 99 degrees, pulse 79, respirations 21, blood pressure 216/95. General: This is an obese, ill-appearing, elderly male. He is wearing, at this time, an oxygen mask. Neck: No stiffness. Lungs: Clear to auscultation. Cardiovascular: Heart rate is irregular. Abdomen: Soft and not tender. Extremities: The patient's left foot plantar ulcer is smaller and it does have beefy red tissue. The amputation site of the fifth toe is the same size and it has devitalized tissue. Neurologic: The patient is obtunded. He did not respond to verbal stimuli. LAB AND RADIOLOGY: Chest x-ray showed clear lung quiros. CBC showed a white count of 13,250, hemoglobin 14.2, and platelet count 231,000. Blood gases show a pH of 7.45, a PO2 of 120, and a pCO2 of 38. Creatinine is 1.5. GFR is 45. Liver function studies are normal. ASSESSMENT AND PLAN: The patient is status post amputation of his left fifth toe for osteomyelitis of the foot. The patient's neurologic status remains obtunded. The patient's white blood cell count did increase from what it was yesterday. My plan now would be to repeat the patient's chest x-ray, CBC, and BMP. If the patient's white count continues to increase, then I will resume the patient's prior antibiotics. COMORBIDITIES: The patient is elderly and obese. He has obstructive sleep apnea, gastroesophageal reflux disease, congestive heart failure, and a history of drug abuse. cc: Alen Banks MD
--- NOTE | 2019-02-20 12:17 | PROGRESS NOTE ---
DATE: 02/20/2019 Mr. Arauz shows less rigidity in the limbs today. Neck is not rigid today. There is full lateral eye movement with passive head turning. He is breathing regularly. His breathing pattern increased slightly on response to noxious stimulation, but he did not groan or move. He did not communicate with me. I do not have an explanation for his persistent encephalopathy. There are no focal features. There is not definite evidence of increased intracranial pressure. We have been concerned about MANAGER ANDROID infection but have not documented any definite evidence of that. There is not evidence of seizure. He has had a gradual cognitive decline but recent problems seems to be more abrupt than generally would be expected with an autoimmune encephalitis. Features are not typical of neuroleptic malignant syndrome. Temperature and CK are only mildly elevated. Buspirone, citalopram, pregabalin were reported on board on admission and these could produce a serotonergic syndrome, but none of these medications have been continued and I would have expected major clinical improvement by now. I do not have any urgent suggestion from a neurology standpoint. We might re- attempt LP later and we might repeat EEG later. Thanks for asking Neurology to see Mr. Arauz. cc: MD JACKY Jeff III
--- NOTE | 2019-02-20 19:40 | PULMONOLOGY PROGRESS NOTE ---
DATE: 02/20/2019 SUBJECTIVE: The patient was on BiPAP last night, but currently is on face mask. He has no increased work of breathing. He does not appear to be obstructing at this time. OBJECTIVE: The patient has been afebrile for the last 24 hours. Blood pressure 146/90, heart rate 81, respiratory rate 25, oxygen saturation 99% on 35% Venturi mask. HEENT: Pupils are equal and reactive. Oropharynx appears dry, but clear. Neck: Supple. Chest: Prolonged expiratory phase. Cardiac: S1, S2. Abdomen: Obese and soft. Extremities: Trace edema with prior surgery on the left foot. LABORATORY AND DIAGNOSTIC DATA: Chest x-ray 02/20/2019, reveals generous cardiac silhouette/mild cardiomegaly, grossly clear lung quiros. Sodium 142, potassium 4.9, chloride 103, bicarbonate 23, BUN 53, creatinine 1.5, glucose 273. White blood count 13.25, hemoglobin 14.2, platelet count 231,000. Arterial blood gas reveals a pH of 7.45, pCO2 of 38, PO2 of 120 on BiPAP. IMPRESSION: A 78-year-old with: 1. Hypoxemic respiratory failure. 2. Obstructive sleep apnea. 3. Episode of hypoglycemia prior to this admission. 4. Ongoing encephalopathy, possibly related to severe hypoglycemia. 5. Diabetes mellitus. 6. Chronic obstructive pulmonary disease. 7. Status post recent digital amputation on the left foot. RECOMMENDATIONS: 1. Continue to cycle BiPAP at bedtime and p.r.n. 2. Anticipate the need for a PEG tube and possible tracheostomy if his mental status does not improve. 3. Overall prognosis appears guarded. cc: Royer Lott MD
[2019-02-21] MEDS: HUMALOG SUBQ SCH ×6 (00:03→21:32)
[2019-02-21] MEDS: D5 1/2 NS + KCL 10 MEQ 1,000 ML IV SCH (03:00)
[2019-02-21] MEDS: DUONEB (A & A) INH SCH ×6 (03:35→23:04)
[2019-02-21] MEDS: SOLU-MEDROL IV SCH ×2 (04:50→16:06)
[2019-02-21 05:41] LABS: BASO# 0.01 X1000 (0.0-0.2); BASO% 0.1 % (0.0-0.8); HEMATOCRIT 41.4 % (42.0-52.0); HEMOGLOBIN 12.9 g/dL (14.0-18.0); IMM GRAN# 0.03 X1000 (0.0-0.04); IMM GRAN% 0.3 % (0.0-0.5); LYMPH# 0.43 X1000 (1.2-3.4); LYMPH% 3.6 % (20.5-51.1); MCH 26.4 PG (27-31); MCHC 31.2 g/dL (33-37); MCV 84.7 FL (81-99); MONO% 7.6 % (1.7-9.3); MPV 12.6 FL (7.4-10.4); NEUT# 10.52 X1000 (1.4-6.5); NEUT% 88.4 % (42.2-75.2); PLT 186 X1000 (130-400); RBC 4.89 XMIL (4.7-6.1); RDW 14.7 % (11.5-14.5); WBC 11.89 X1000 (4.8-10.8)
[2019-02-21 06:16] LABS: CALCIUM 8.4 mg/dL (8.8-10.2); CREATININE 1.3 mg/dL (0.7-1.2); POTASSIUM 5.2 mmol/L (3.5-5.1)
[2019-02-21 07:01] LABS: LYMPHS 6 % (21-51); MONO 3 % (1-9); SEGS 90 % (42-75)
[2019-02-21 07:03] LABS: MAGNESIUM 2.7 mg/dL (1.5-2.7); PHOSPHORUS 3.7 mg/dL (2.7-4.5)
--- NOTE | 2019-02-21 07:08 | Diag Imaging Result Doc PS360 ---
EXAM: CHEST-1 VIEW 02/21/2019 HISTORY: pneumonia TECHNIQUE: AP portable at 0521 COMMENT: There is no evidence of acute cardiac or pulmonary disease. Compared to 02/20/2019 there has been no significant change. IMPRESSION: No evidence of acute disease. Electronically signed by Binh Larson 02/21/2019 7:06 AM
[2019-02-21] MEDS: NORVASC PO SCH ×2 (08:35→21:33)
[2019-02-21] MEDS: APRESOLINE PO SCH ×3 (08:36→16:05)
[2019-02-21] MEDS: COREG PO SCH ×2 (08:36→21:33)
[2019-02-21] MEDS: CATAPRES PO SCH ×2 (08:36→21:33)
[2019-02-21] MEDS: HEPARIN SUBQ SCH ×2 (08:37→21:32)
[2019-02-21] MEDS: LANTUS INSULIN SUBQ SCH (08:37)
[2019-02-21] MEDS: SANTYL OINT TOP SCH (08:37)
[2019-02-21] MEDS: PROTONIX IV SCH (12:58)
--- NOTE | 2019-02-21 13:55 | PROGRESS NOTE ---
DATE: 02/21/2019 SUBJECTIVE: Today, Mr. Arauz continues to be fairly the same. No new complaints. He is verbally unresponsive. OBJECTIVE: Vital Signs: Blood pressure 155/77, pulse of 71, respirations 19, temperature is 97.6 degrees. General: Mr. Arauz is a 78-year-old gentleman. He is in bed. HEENT: Mucosa is pink and moist. Anicteric. Acyanotic. Neck: Neck is supple. Chest: Air entry is bilaterally reduced. There are some transmitted sounds from the upper airway. Cardiovascular: Regular rate and rhythm. Abdomen: Soft. Bowel sounds are present. Extremities: No pedal edema. Distal pulses are present. Vogel catheter is in place. HOST/HOSTESS: Patient remains verbally unresponsive. Still rigid everywhere, but less than days before. He is now able to overcome the rigidity on the right upper extremity. Left moves freely. The lower extremity continues to be very rigid and I am not able to overcome the resistance. He, however, will move the lower extremity away from painful stimulation. The patient's GCS 8/15. LABORATORY DATA: WBC is 11.89, hemoglobin is 12.9, platelet count of 186,000. Chemistry is reviewed. Potassium is 5.2. The patient's creatinine is 1.3, glucose of 293. So far, blood cultures have been 5 days negative. The culture from the left foot is negative. ASSESSMENT: 1. Protracted periods of unresponsiveness of unclear etiology. GCS of 8/15. Neurology is on board. Neuro imaging have so far been unremarkable. Lumbar puncture has been attempted twice unsuccessful because of patient generalized rigidity. 2. Acute on chronic renal failure. Creatinine is 1.5. 3. Acute on chronic hypercarbic respiratory failure. The patient cycles between BiPAP and Venturi mask. 4. Acute hypoxemic respiratory failure. Patient is on Venturi mask and saturating well. 5. Clinical volume depletion improved. 6. History of methicillin resistant Staphylococcus aureus osteomyelitis of the left 5th toe, status post toe amputation. 7. Chronic obstructive pulmonary disease with mild exacerbation, improved. The patient is on steroids and nebulization. Antibiotics were discontinued. 8. Diabetes mellitus with hyperglycemia. We will continue to titrate his insulin regimen for adequate glycemic control. 9. Severe motor rigidity of unclear etiology. 10. Nutritional needs. Patient is on tube feeding. He seems to be tolerating that. 11. Hyperkalemia. The patient's baseline fluids have been discontinued because it did contain potassium as well. 12. Uncontrolled hypertension. We will continue with his current medications. We have also added clonidine. In general, I think Mr. Arauz continues to be fairly the same. No change in the last 24 hours and his neurological status has been the same since admission. We are going to continue the supportive management and follow with further recommendations from the other subspecialties involved. The patient's IV fluids have been discontinued and will advised to increase his free water boluses with the tube feedings. cc: Riky Plunkett MD MTDD
--- NOTE | 2019-02-21 14:33 | INFECTIOUS DISEASE PROGRESS NO ---
DATE: 02/21/2019 PRESENT ILLNESS: The patient previously had a methicillin-resistant Staphylococcus aureus osteomyelitis of the left foot. He has had surgery and antibiotics for that and the osteomyelitis has cleared up. MEDICATIONS: The patient is on no antibiotics. PHYSICAL EXAMINATION: Vital Signs: Temperature is 98, pulse 71, respirations 19, and blood pressure 155/77. General: This is an obese, ill-appearing, elderly male. He is wearing an oxygen mask at this time. Neck: Passive movement of the neck did not seem to cause the patient to have any pain. Lungs: Clear to auscultation. Cardiovascular: Today the heart rate appeared to me to be regular. Abdomen: Soft and nontender. When he does take some deep breaths it appears that he has an abdominal wall hernia bilaterally. Neurologic: The patient is obtunded. He did not respond to verbal stimuli. LAB AND X-RAY: CBC shows a white count of 11,890, hemoglobin 12.9, and platelet count 186,000. Creatinine is 1.3. GFR is 54. Chest x-ray shows no acute disease and specifically no infiltrates. ASSESSMENT AND PLAN: 1. The patient has no active infection at this time. His white count is decreasing. He is on steroids which could mean that it might not come all the way down to a normal level. I am signing off the patient's case but I am available to see him on a p.r.n. basis. 2. Comorbidities: The patient is elderly and obese. He has obstructive sleep apnea, gastroesophageal reflux disease, congestive heart failure, and a history of drug abuse. cc: Alen Banks MD
--- NOTE | 2019-02-21 14:34 | PROGRESS NOTE ---
DATE: 02/21/2019 SUBJECTIVE/PLAN: Mr. Arauz continues unresponsive. Limb tone is much improved compared to several days ago. I do not have any new thoughts or new suggestions from neurology standpoint today. cc: Majo Reilly III, MD
--- NOTE | 2019-02-21 22:56 | PULMONOLOGY PROGRESS NOTE ---
DATE: 02/21/2019 SUBJECTIVE: The patient is arousable. He does not respond to voice. He has obstruction when not on BiPAP. OBJECTIVE: Vital Signs: The patient has been afebrile for the last 24 hours. Blood pressure 151/80, heart rate 68, respiratory rate 15, oxygen saturation 98% HEENT: Pupils are equal and reactive. Oropharynx appears clear but dry. Neck: Supple. Chest: Reveals prolonged expiratory phase. Cardiac exam: S1-S2, Abdomen: Obese and soft. Extremities: Without edema. LABORATORIES: Sodium 143, potassium 5.2, chloride 106, bicarbonate 26, BUN 54, creatinine 1.3, glucose 293. Chest x-ray reveals no acute changes. Microbiology reveals no new data. IMPRESSION: A 78-year-old with: 1. Hypoxemic respiratory failure. 2. Obstructive sleep apnea. 3. Episode of hypoglycemia prior to this admission. 4. Ongoing encephalopathy, possibly related to an episode of severe hypoglycemia. 5. Diabetes mellitus. 6. Chronic obstructive pulmonary disease. PLAN: 1. Continue to cycle BiPAP at bedtime and p.r.n. 2. Anticipate the need for a PEG tube and probable tracheostomy if family continues to wish aggressive interventions and his mental status does not improve. cc: Royer Lott MD
[2019-02-22] MEDS: HUMALOG SUBQ SCH ×6 (00:55→21:32)
[2019-02-22] MEDS: SOLU-MEDROL IV SCH ×2 (03:18→15:18)
[2019-02-22] MEDS: DUONEB (A & A) INH SCH ×6 (03:31→23:17)
[2019-02-22 07:25] LABS: HEMOGLOBIN 14.1 g/dL (14.0-18.0); IMM GRAN# 0.05 X1000 (0.0-0.04); IMM GRAN% 0.3 % (0.0-0.5); LYMPH% 2.7 % (20.5-51.1); MCH 26.1 PG (27-31); MCHC 30.7 g/dL (33-37); MONO# 0.65 X1000 (0.11-0.59); MONO% 4.4 % (1.7-9.3); MPV 12.4 FL (7.4-10.4); NEUT# 13.67 X1000 (1.4-6.5); NEUT% 92.6 % (42.2-75.2); PLT 211 X1000 (130-400); RBC 5.41 XMIL (4.7-6.1); RDW 14.3 % (11.5-14.5); WBC 14.77 X1000 (4.8-10.8)
[2019-02-22 07:51] LABS: AGAP 10; ALB/GLOB RATIO 1.1; ALBUMIN 3.4 g/dL (3.5-5.0); ALKALINE PHOSPHATASE 82 U/L (32-122); BUN 49 mg/dL (8-22); CALCIUM 8.7 mg/dL (8.8-10.2); CHLORIDE 103 mmol/L (98-107); COSMO 305; CREATININE 1.1 mg/dL (0.7-1.2); ESTIMATED GFR > 60; GLUCOSE 261 mg/dL (70-104); GOT 23 U/L (10-34); GPT 14 U/L (10-44); POTASSIUM 6.1 mmol/L (3.5-5.1); SODIUM 142 mmol/L (136-145); TCO2 29 mmol/L (25-35); TOTAL BILIRUBIN 0.63 mg/dL (0.20-1.00); TOTAL PROTEIN 6.5 g/dL (6.3-8.3)
[2019-02-22] MEDS ORDERED: ALBUTEROL 0.5% INH CONC FOR HYPERKALEMIA INH ONE (07:54)
[2019-02-22 07:58] LABS: BANDS 1 % (0-1); LYMPHS 4 % (21-51); MONO 1 % (1-9); SEGS 94 % (42-75)
[2019-02-22] MEDS: NORVASC PO SCH ×2 (08:33→21:34)
[2019-02-22] MEDS: CATAPRES PO SCH ×2 (08:33→21:34)
[2019-02-22] MEDS: APRESOLINE PO SCH ×3 (08:33→21:33)
[2019-02-22] MEDS: COREG PO SCH ×2 (08:33→21:34)
[2019-02-22] MEDS: LANTUS INSULIN SUBQ SCH ×2 (08:34→21:31)
[2019-02-22] MEDS: HEPARIN SUBQ SCH ×3 (08:35→21:33)
[2019-02-22] MEDS ORDERED: LOKELMA POWDER PACKET PO SCH (09:00)
[2019-02-22] MEDS: SANTYL OINT TOP SCH (09:29)
[2019-02-22] MEDS ORDERED: NS 250 ML ONE (12:03)
[2019-02-22] MEDS: PROTONIX IV SCH (13:50)
--- NOTE | 2019-02-22 14:29 | PROGRESS NOTE ---
DATE: 02/22/2019 SUBJECTIVE: This morning Mr. Arauz remains the same. No changes per the nursing staff. He continues to be cycling between the Venturi mask and BiPAP at night. No family member was at the bedside at the time of the encounter. OBJECTIVE: Vital signs: Blood pressure is 155/84, pulse of 71, respirations 21, temperature is 97.3 degrees. Patient is saturating 99%. General: Mr. Arauz is a 78-year-old elderly gentleman. He is in bed. HEENT: Mucosa is pink and moist. Anicteric. Acyanotic. Neck: Supple. Chest: Good air entry bilaterally. No crepitations. Cardiovascular: Regular rate and rhythm. There are no murmurs, no rubs, no gallops. GI: Abdomen is soft, nontender. Patient seems to be using abdomen to help breathing. Vogel catheter in place. Extremities: No pedal edema. ONLINE MARKETING COORDINATOR: The patient remains unresponsive to verbal commands. He remained rigid. However, the right lower extremity now seems to be less rigid, it is easily overcome. The left continues to be remarkably rigid. The upper extremities are very easily found to be overcome. The pupils are equal and they are reactive. The patient's GCS is 8/15. No change from yesterday. LABORATORY DATA: WBC is 14.77, hemoglobin is 14.1, platelet count of 211,000. Chemistry is also reviewed. Potassium is up to 6.1. Rest of chemistry is unremarkable. BUN is 49, down from 54 yesterday. MEDICATIONS: Have all been reviewed. Patient is still not on any antimicrobial therapy. ASSESSMENT: 1. Protracted period of unresponsiveness of unclear etiology. GCS of 8/15. Neuro imaging so far unremarkable. Lumbar puncture has been attempted twice and unsuccessful because of patient's generalized rigidity. This is presumed to be a result of prolonged hypoglycemia. However, medications and others could potentially compound this. 2. Acute on chronic renal failure. Creatinine is down to 1.1. 3. Acute on chronic hypercarbic respiratory failure. The patient cycles between BiPAP and Venturi mask. 4. Acute hypoxemic respiratory failure. 5. Clinical volume depletion improved. 6. History of MRSA osteomyelitis of the left 5th toe status post amputation. 7. COPD in exacerbation, improved. 8. Diabetes mellitus with hyperglycemia. Patient is on insulin regimen. 9. Uncontrolled hypertension, improving. 10. Generalized rigidity of unclear etiology. 11. Nutritional needs. Patient will be switched to Nepro. 12. Hyperkalemia. We will give the patient nebulization. He is already on insulin. We will also give him lokelma. In general Mr. Arauz remains the same. Neurologically there has not been any improvement since admission. His other parameters for most part remain stable. I spoke with the family 3 days ago and they are leaning towards getting Mr. Vasquez' to a long-term acute care facility which Social Work and Case Management have been notified and will follow up on that hopefully Sunday. cc: Riky Plunkett MD MTDD
[2019-02-22 16:57] LABS: INR 1.17
--- NOTE | 2019-02-22 20:44 | PULMONOLOGY PROGRESS NOTE ---
DATE: 02/22/2019 SUBJECTIVE: The patient does not respond to voice. He does partially withdraw to painful stimuli. OBJECTIVE: The patient has been afebrile for the last 24 hours. Blood pressure 165/71, heart rate 69, respiratory rate 16, oxygen saturation 100% on 35% venturi mask.HEENT: Pupils are equal and reactive. Oropharynx appears clear but dry. Neck is supple. Chest reveals coarse rhonchi bilaterally. Cardiac exam: S1, S2. Abdomen is obese and soft. Extremities reveal decreased peripheral edema. LABORATORY DATA: Sodium 142, potassium 6.1, chloride 103, bicarbonate 29, BUN 49, creatinine 1.1. IMPRESSION: A 78-year-old with: 1. Hypoxemic respiratory failure. 2. Obstructive sleep apnea. 3. Severe hypoglycemia prior to this admission, with ongoing encephalopathy. 4. Diabetes mellitus. 5. Chronic obstructive pulmonary disease. 6. Hyperkalemia. PLAN: 1. Continue to cycle BiPAP at bedtime and p.r.n. 2. Anticipate the need for a PEG tube and possible tracheostomy for aggressive management as the family wishes. 3. Agree with potassium management as ordered per Dr. Plunkett. cc: Royer Lott MD
[2019-02-23] MEDS: HUMALOG SUBQ SCH ×6 (00:43→20:08)
[2019-02-23] MEDS: DUONEB (A & A) INH SCH ×6 (03:05→23:33)
[2019-02-23] MEDS: SOLU-MEDROL IV SCH ×2 (03:17→14:54)
[2019-02-23 04:41] LABS: ALLEN TEST YES; BE 3.4 mmoll (-3.0-3.0); BLOOD TYPE ARTERIAL; HCO3-(ACT) 27.5 mmoll (20.0-26.0); METHB 0.9 % (0.0-1.5); O2HB 95.4 % (95.0-99.0); PCO2(98.6) 50 mmHg (35-45); PO2(98.6) 100 mmHg (60-100); SAMPLE BLOOD; SAO2 97.8 % (95.0-100.0); THB 14.1 g/dL (11.5-17.4); pH(98.6) 7.38 (7.35-7.45)
[2019-02-23 04:43] LABS: MODALITY CANNULA
[2019-02-23 05:46] LABS: HEMATOCRIT 42.4 % (42.0-52.0); HEMOGLOBIN 13.1 g/dL (14.0-18.0); MCH 25.8 PG (27-31); MCHC 30.9 g/dL (33-37); MCV 83.5 FL (81-99); MPV 13.2 FL (7.4-10.4); RBC 5.08 XMIL (4.7-6.1); RDW 14.3 % (11.5-14.5); WBC 13.71 X1000 (4.8-10.8)
--- NOTE | 2019-02-23 06:17 | Diag Imaging Result Doc PS360 ---
EXAM: CHEST-PORTABLE HISTORY: abnormal exam TECHNIQUE: Single view COMPARISON: 02/21/2019 FINDINGS: Poor inspiratory effort. There are sternal wires heart is mildly prominent. Nasogastric tube overlies the esophagus and stomach. Left-sided PICC line in good position. No consolidation. No pleural effusions identified. Mild vascular distention. IMPRESSION: Mild pulmonary edema Electronically signed by Quincy Ovalle 02/23/2019 6:14 AM
[2019-02-23 06:28] LABS: ESTIMATED GFR > 60
[2019-02-23 06:38] LABS: AGAP 11; ALBUMIN 3.2 g/dL (3.5-5.0); BUN 52 mg/dL (8-22); CHLORIDE 103 mmol/L (98-107); COSMO 305; CREATININE 1.1 mg/dL (0.7-1.2); GLUCOSE 302 mg/dL (70-104); PHOSPHORUS 3.8 mg/dL (2.7-4.5); POTASSIUM 5.1 mmol/L (3.5-5.1); SODIUM 140 mmol/L (136-145); TCO2 26 mmol/L (25-35)
[2019-02-23] MEDS: LANTUS INSULIN SUBQ SCH ×2 (08:26→20:08)
[2019-02-23] MEDS: HEPARIN SUBQ SCH ×2 (08:27→20:09)
[2019-02-23] MEDS: APRESOLINE PO SCH ×3 (08:27→16:42)
[2019-02-23] MEDS: COREG PO SCH ×2 (08:27→20:07)
[2019-02-23] MEDS: NORVASC PO SCH ×2 (08:28→20:07)
[2019-02-23] MEDS: CATAPRES PO SCH ×2 (08:28→20:07)
[2019-02-23] MEDS: SANTYL OINT TOP SCH (08:29)
--- NOTE | 2019-02-23 08:48 | PROGRESS NOTE ---
DATE: 02/23/2019 SUBJECTIVE: This morning, Mr. Arauz referred remains the same. No changes per the nursing staff. He continues to remain unresponsive. He has been transitioned to nasal cannula. He seems to be tolerating this well. OBJECTIVE: Vital Signs: Blood pressure is 147/76, pulse of 69, respirations 17, temperature 97.4 degrees. Patient is saturating 98% on 2 L nasal cannula. General: Mr. Arauz is a 78-year-old elderly gentleman, morbidly obese with a BMI of 35.7. He is in bed. He does not seem to be in any cardiopulmonary distress. HEENT: Mucosa is pink and moist. Anicteric. Acyanotic. Neck: Supple, is short, but no JVD. Chest: Air entry is bilaterally reduced. Some transmitted sounds from the upper airway. Cardiovascular: Regular rate and rhythm. There are no murmurs, no rubs, no gallops Abdomen: Soft, distended but nontender. Bowel sounds present. Extremities: No pedal edema. 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 Spontaneously will open his eyes and he will also do so with pain as well. Occasionally, he will moan and groan to pain. He will try to withdrawal from the lower extremity upon noxious stimulation. He seems to slightly hyperextend the upper extremity to painful stimulation. He has a GCS of 9/15 today, which remains fairly unchanged for the past couple of days. LABORATORY DATA: WBC is 13.71, hemoglobin is 13.1, platelet count of 192,000. Chemistry is also reviewed. Potassium is down to 5.1, BUN is slightly up to 52, creatinine is normalized at 1.0. The patient's glucose is 302. So far blood cultures have been 5 days negative. No imaging studies at this point. The ABG shows pH of 7.38, pCO2 of 50, PO2 was 100. This was on nasal cannula at FiO2 of 28%. CURRENT MEDICATIONS: Include 3. Amlodipine 5 mg b.i.d. 4. Coreg 25 mg b.i.d. 5. Clonidine 0.1 mg b.i.d. 6. Heparin. 7. Alprazolam p.r.n. 8. Hydralazine 50 mg p.o. 3 times per day. 9. Lantus 50 units subcutaneous at bedtime and 25 units in the morning. 10. Humalog sliding scale. 11. Ativan 1 mg IV q.4 p.r.n. 12. Methylprednisolone 40 mg IV q.12 which we are titrating down. 13. Lokelma 10 mg p.o. daily for another day. ASSESSMENT: 1. Protracted period of unresponsiveness of unclear etiology. GCS of 9/15. Initial neuro imaging have all been unremarkable. Lumbar puncture has been attempted twice, unsuccessful because of patient generalized rigidity. We presume the altered mentation is due to prolonged hypoglycemia-induced encephalopathy. Medications side effects have also been suspected. Mr. Arauz has not shown any improvement in terms of neurological progress. He remains fairly the same and I think he is probably going to be like this for a very long time. The family is thinking about transitioning him to an intermediate acute care facility. They still want to keep him full code. 2. Acute kidney injury. Creatinine has normalized. 3. Acute on chronic hypercarbic respiratory failure. The patient will need BiPAP every now and then, especially if the pCO2 goes up. 4. Acute hypoxemic respiratory failure on presentation, improved. The patient is down to only nasal cannula. 5. Clinical volume depletion, improved with adequate hydration. 6. Chronic obstructive pulmonary disease in exacerbation, improved. The patient was on antibiotics but was discontinued. He remains on nebulization and steroids. We are titrating the steroids down. 7. Diabetes mellitus with hyperglycemia. The patient is on insulin regimen. I think part of his glucose being high is because of the steroids. 8. Hypertension, better control on current regimen. 9. Generalized rigidity of unclear etiology. This seems to be getting better. 10. Hyperkalemia has normalized. Patient is also on Lokelma for another day. 11. Nutritional needs. Mr. Arauz is currently on tube feedings and seems to be tolerating well. Interim History: Mr. Arauz has been in the hospital for the past 9 days. He was apparently found unresponsive by the for a very long time. When EMS was called, his glucose was about 38 at home. He was given D50. They sent him to the emergency room, was sent to [facility] where he was evaluated and then brought to [facility] for higher level of care. Mr. Arauz was initially thought to have some infectious etiology, so was started on IV antibiotics. LP was attempted twice but was unsuccessful because of his extremity rigidity. His neurological status has really not shown any change. He remains unresponsive. He only groans occasionally to painful stimulation, and he will barely withdraw the lower extremities to pain. He will open his eyes occasionally to painful stimulation but he does also open them spontaneously. The long-term plan will be to get him to an LTAC as per the family's wishes. I think they might want to pursue a PEG tube for long-term nutritional needs and probably a tracheostomy for the respiratory failure. I think this can also be done at the LTAC. Will be waiting on Case Management and Social Work arrangements for LTAC placement. cc: Riky Plunkett MD Addendum: I spoke to the son, Andre Arauz, today . He made me aware that Mr Arauz has a living will which states wishes. And among the wishes, Mr Arauz did not want to be resuscitated. He doesn't want any feeding tube nor tracheostomy. Son said he will provide us with a copy of the Will. So family have requested to change patient's status to DNR level 1 as per his wishes. Also family is requesting hospice evaluation and arrangement to be discharged home with hospice. I have consulted palliative medicine again for hospice evaluation. JACKY
[2019-02-23] MEDS: PROTONIX IV SCH (12:45)
[2019-02-23 13:06] LABS: CALCIUM 9.4 mg/dL (8.8-10.2)
--- NOTE | 2019-02-23 13:22 | PULMONOLOGY PROGRESS NOTE ---
DATE: 02/23/2019 SUBJECTIVE: The patient only moans to pain. He does not respond to voice. OBJECTIVE: Vital Signs: The patient has been afebrile for the last 24 hours, blood pressure 139/75, heart rate 74, respiratory rate 20, oxygen saturation 98% on 2 L nasal cannula. HEENT: Pupils are equal and reactive. Oropharynx appears dry, but clear. Neck: Supple. Chest: Prolonged expiratory phase, without wheezing or rhonchi. Cardiac: S1, S2. Abdomen: Obese and soft. Extremities: Generalized edema. LABORATORY DATA: Arterial blood gas on 2 L nasal cannula reveals pH 7.38, pCO2 of 50, pO2 of 100. IMPRESSION: A 78-year-old with: 1. Encephalopathy. 2. Significant hypoglycemia prior to admission. 3. Chronic obstructive pulmonary disease. 4. Obstructive sleep apnea. 5. Failure to improve over the last 9 days. PLAN: 1. Continue to cycle BiPAP at bedtime and p.r.n. 2. Anticipate hospice evaluation. The patient's nurse reports that family has decided against PEG tube and tracheostomy. 3. Poor prognosis given palliative performance status of approximately 20%. cc: Royer Lott MD
[2019-02-24] MEDS: HUMALOG SUBQ SCH ×3 (00:53→09:25)
[2019-02-24] MEDS: DUONEB (A & A) INH SCH ×6 (03:25→23:05)
[2019-02-24] MEDS: SOLU-MEDROL IV SCH (04:40)
--- NOTE | 2019-02-24 07:24 | PROGRESS NOTE ---
DATE: 02/24/2019 SUBJECTIVE: No acute events overnight. No big changes compared with yesterday. He moans with pain stimulation. He is not following commands. He has upper extremity rigidity mostly. He is tolerating the feeding tube. OBJECTIVE: Vital Signs: Temperature 97.7 degrees, pulse 67, respiratory rate 18, blood pressure 125/61, oxygen saturation 97% on 2 L of nasal cannula. HEENT: Head normocephalic. No trauma. Neck: Supple. No JVD. Central trachea. Chest: Decreased breath sounds globally but no wheezing or rales. Cardiovascular: RRR. No murmurs. No gallops. No rubs. Abdomen: Soft. Slightly distended. I do not think it is tender. Bowel sounds present. Extremities: No lower extremity edema. There is 2+ upper extremity edema. Also, he has the left foot wrapped with a new dressing. Neurological Examination: This patient is unresponsive. His eyes are opened spontaneously. He is not following with his eyes, the practitioner. He is moaning because I am trying to move his upper extremities and upon pain stimulation. Like I mentioned before, his upper extremities are rigid and extended. Apparently, he remains unchanged for the past few days. Laboratory: No lab work done today. Blood sugar of 281. ASSESSMENT AND PLAN: 1. Global encephalopathy, unclear etiology. Apparently, this patient was found unresponsive. Neurological department on board. We tried to do a lumbar puncture twice but it was unsuccessful because of this patient's generalized rigidity. He was found hypoglycemic when they found this patient at home. We do not know how long he was hypoglycemic though. This could be related to hypoglycemia-induced encephalopathy but to be honest, there is not a clear etiology for this. Apparently, also initially, the family was thinking about taking this patient to a long-term acute care and the patient was Full Code. I can see that the patient has been placed Do Not Resuscitate and apparently hospice will be on board. 2. Acute kidney injury. Creatinine from yesterday was 1.1. Initial creatinine was elevated. I think this is his baseline. 3. Acute on chronic hypercarbic respiratory failure. Continue with BiPAP as needed. 4. Acute hypoxemic respiratory failure on presentation, improved. This patient is tolerating his nasal cannula. 5. Clinical volume depletion/dehydration, resolved. 6. Chronic obstructive pulmonary disease exacerbation, improved. I will decrease the dose of the steroids today. 7. Type 2 diabetes with hyperglycemia. This patient is on an insulin regimen. I will decrease even more the steroids to see if we can control this better. 8. Hypertension, stable. 9. Generalized rigidity of unclear etiology. We will follow. 10. Hyperkalemia, stable. No lab work done today. 11. Nutritional status. This patient is tolerating feeding tube. 12. It looks like palliative care has been consulted. Apparently, the family has been requesting now to take this patient home with hospice. I will wait for the final recommendations. Overall,this patient has an extremely poor prognosis. For now, we will monitor this patient in the intensive care unit. cc: Ranulfo Klein MD
[2019-02-24] MEDS: APRESOLINE PO SCH (09:25)
[2019-02-24] MEDS: HEPARIN SUBQ SCH (09:25)
[2019-02-24] MEDS: COREG PO SCH (09:25)
[2019-02-24] MEDS: CATAPRES PO SCH (09:25)
[2019-02-24] MEDS: NORVASC PO SCH (09:25)
[2019-02-24] MEDS: SANTYL OINT TOP SCH (09:26)
[2019-02-24] MEDS: LANTUS INSULIN SUBQ SCH (09:26)
[2019-02-24] MEDS ORDERED: MORPHINE IV PRN (10:39)
[2019-02-25] MEDS: ATIVAN IV PRN (01:25)
[2019-02-25] MEDS: DUONEB (A & A) INH SCH ×6 (03:38→22:39)
[2019-02-25] MEDS ORDERED: SOLU-MEDROL IV SCH (09:00)
--- NOTE | 2019-02-25 09:08 | PULMONOLOGY PROGRESS NOTE ---
DATE: 02/25/2019 SUBJECTIVE: The patient remains poorly responsive. He responds to painful stimuli. Does not respond to his voice. OBJECTIVE: Vital Signs: The patient has been afebrile for the last 24 hours. Blood pressure 149/72, heart rate 73, respiratory rate 24, oxygen saturation 96% on 2 L per nasal cannula. HEENT: Pupils are equal and reactive. Oropharynx appears clear. Neck: Supple. Chest: Reveals occasional rhonchi bilaterally. Cardiac: S1, S2. Abdomen: Soft. Extremities: Reveal chronic vascular disease. IMPRESSION: A 78-year-old with: 1. Encephalopathy following episode of hypoglycemia. 2. Chronic obstructive pulmonary disease. 3. Obstructive sleep apnea. 4. Hypoxemic respiratory failure. DISCUSSION: A 78-year-old problems outlined above. Patient's prognosis is extremely poor. Currently evaluating transfer to an LTAC, home with hospice, or to a long-term facility with hospice. cc: Royer Lott MD
--- NOTE | 2019-02-25 12:41 | PROGRESS NOTE ---
DATE: 02/25/2019 SUBJECTIVE: No acute events overnight. Continue with comfort measures only. Case discussed with one of the sons at the bedside. They are looking for placement so they can get also hospice. PHYSICAL EXAMINATION: Vital Signs: Temperature 98.8 degrees, pulse 78, respiratory rate 20, blood pressure 152/74, oxygen saturation 97% on 3 L of nasal cannula. HEENT: Head normocephalic. No trauma. PERRLA. Neck: Supple. Chest: Decreased breath sounds globally with some crepitus at the bases. Cardiovascular: RRR. Abdomen: Soft, distended. Bowel sounds present. Extremities: No lower extremity edema. Upper extremity edema 2+. His left foot is wrapped with a dressing. Neurological: This patient is unresponsive. ASSESSMENT AND PLAN: 1. Global encephalopathy, unclear etiology. 2. Hypoglycemia on presentation. 3. Acute kidney injury. 4. Acute on chronic hypercarbic respiratory failure. 5. Acute hypoxemic respiratory failure on presentation. 6. Dehydration. 7. Chronic obstructive pulmonary disease exacerbation. 8. Type 2 diabetes with hyperglycemia. 9. Hypertension. 10. Generalized rigidity. 11. Hyperkalemia, resolved. 12. This patient is DO NOT RESUSCITATE. Overall, his prognosis is extremely poor. He has been placed DO NOT RESUSCITATE and comfort measures only. We will continue with that. cc: Ranulfo Klein MD
[2019-02-26] MEDS: DUONEB (A & A) INH SCH ×3 (03:29→11:21)
--- NOTE | 2019-02-26 09:24 | DISCHARGE SUMMARY ---
ADMISSION DATE: 02/14/2019 DISCHARGE DATE: DISCHARGE DIAGNOSES: 1. Global encephalopathy, unclear etiology. 2. Hypoglycemia on presentation. 3. Acute kidney injury. 4. Acute on chronic hypercarbic respiratory failure. 5. Acute hypoxemic respiratory failure on presentation. 6. Dehydration on presentation. 7. Chronic obstructive pulmonary disease exacerbation. 8. Type 2 diabetes. 9. Hypertension. 10. Generalized rigidity. 11. Hyperkalemia, resolved. 12. The patient is DO NOT RESUSCITATE. PROCEDURES PERFORMED: 1. Head CT dated 02/14/2019, impression: Atrophy and microvascular disease. No acute intracranial abnormality. 2. Abdomen and pelvis CT scan dated 02/14/2019, findings: Lung bases unremarkable, mild para- aortic lymphadenopathy, incidental findings, limited evaluation due to patient motion. 3. 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 Consider MR angiogram of the head, which can be done without contrast. 4. Chest x-ray dated 02/14/2019: Nonspecific findings, there is cardiomegaly and diffuse pulmonary vascular congestion. No infiltrates or definite edema. Lung volumes are moderately low. 5. Foot x-ray dated 02/15/2019, impression: Status post interval resection of the fifth toe and distal fifth metatarsal. No indication of osteomyelitis. 6. 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 7. Electroencephalogram dated 02/17/2019: Abnormal electroencephalogram because of generalized slowing. 8. Chest x-ray dated 02/18/2019, findings: NG tube has been placed. The tip appears to be close to the gastroesophageal junction. However, there is some blurriness to the film, and the NG tube may in fact enter the stomach. Advanced with followup imaging recommended. 9. Chest x-ray dated 02/18/2019, impression: Nasogastric tube in the stomach. 10. Chest x-ray dated 02/20/2019, impression: Stable chest. 11. Chest x-ray dated 02/21/2019, impression: No evidence of acute disease. 12. Chest x-ray dated 02/23/2019, impression: Mild pulmonary edema. CONSULTS: 1. Pulmonary Department, Dr. Lott. 2. Infectious Disease Department, Dr. Banks. 3. Neurology Department, Dr. Reilly. HOSPITAL COURSE: A 78-year-old male who was recently discharged from [facility] due to a surgical intervention of his left fifth digit. He was discharged home. Apparently, he had an episode of low blood sugar at home, and has not been acting himself since. As per the admitting physician, the went to bed and noted that when he went to sleep, he was half on the bed and half off with his feet hanging beside the bed on the floor. He was checked on several hours later, and was still in the same position. Apparently, they decided to call the ambulance. As per the report, vital signs were stable, but he will did not wake up, does not answer questions or follow commands. He was given Narcan in the emergency room, and apparently had some minimal relief. He did start grunting, but he still was not able to answer any questions or follow commands. He was basically unresponsive. As per the family, his blood sugar was low. Apparently, the patient's son reported that he has had some difficulty with nausea and vomiting since discharge, which he attributed to the antibiotics. EMS was called, and upon arrival, apparently the blood sugar was 38, and he did not improve, even after correction of the hypoglycemia. He did have some evidence of emesis on his mouth and face. CT scan of the head revealed atrophy and microvascular disease, but no acute intracranial abnormality. 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 This patient actually was transferred to [facility], and he has been seen by multiple subspecialties, including Pulmonary Department, Neurology Department, and Infectious Disease Department. Infectious Disease Department started this patient on antibiotics. Neurology Department evaluated this patient. EEG was done, and it was abnormal due to generalized slowing. They tried to do a lumbar puncture, I believe twice, but because of his rigidity, they were not able to perform the procedure. This patient was placed on the BiPAP machine on and off to try to correct his respiratory failure. Also, an NG tube has been placed, and also we started this patient on feeding tube. Clinically, the patient did not show any signs of improvement. His upper extremities were rigid and extended. He has a lateralized and continued movement of the eyes. He was not responding even to pain stimulation. His encephalopathy is basically of unclear origin, but could be related to hypoglycemia. Palliative Care was consulted, and the discussion about hospice with the family was performed. Apparently, they found a document, where the patient states that he does not want to get any kind of treatment if he is not medically stable. Basically, he is asking to be DO NOT RESUSCITATE in that document, and they did. The NG tube has been removed, and he was placed on comfort measures only. Today, he will be discharged to [facility]. I will continue with medications to keep this patient comfortable, including morphine liquid, Ativan p.o., and scopolamine patch. All this treatment can be modified in that place. PHYSICAL EXAMINATION: Vital Signs: Temperature 99.6 degrees, pulse 83, respiratory rate 18, blood pressure 152/78, oxygen saturation 97% on 2 L of nasal cannula. HEENT: Head normocephalic. No trauma. Continued movement of the eyes from side to side, slow. Neck: Supple. No JVD. Central trachea. Chest: Some crepitus at the bases. Abdomen: Soft. It is slightly distended. Positive bowel sounds. Extremities: Some upper extremity edema. No clubbing. No cyanosis. His left foot is wrapped with a dressing. Neurological: This patient is unresponsive, not even to pain stimulation. He is moaning. DISCHARGE MEDICATIONS: Morphine liquid 10 mg p.o. every 2 hours as needed for pain, Ativan 2 mg tablet every 2 hours as needed for anxiety, scopolamine patch every 72 hours. PROGNOSIS: Overall, this patient has an extremely poor prognosis. He has been placed DO NOT RESUSCITATE and comfort measures only. TIME SPENT: Time discharging this patient was 30 minutes. cc: Ranulfo Klein MD
[2019-02-26 13:18] VITALS: BP 161/82
== END 2019-02-26 14:14 | DRG 70 ==
LOC: EDBD → P.ED 12:32 → P.ICU 17:37 → SUATTDRO 17:37 → ICU 02-15 14:48 → 1N 02-24 13:23
PROVIDERS: ATTEND Internal Medicine